=== PATIENT | female | born 1965 | race Caucasian/White ===

== ENCOUNTER 2018-05-17 18:44 | Emergency (ER) | payer MEDICAID, SELFPAY ==
[2018-05-17 18:46] VITALS: BP 116/61; PULSE 67; RESP 16; TEMP 36.5; O2SAT 100; BMI 40.5
--- NOTE | 2018-05-17 18:51 | EKG12_ITS ---
Test Reason : SYNCOPE Blood Pressure : / mmHG Vent. Rate : 064 BPM Atrial Rate : 064 BPM P-R Int : 136 ms QRS Dur : 084 ms QT Int : 438 ms P-R-T Axes : 030 002 169 degrees QTc Int : 451 ms Normal sinus rhythm Inferior infarct , age undetermined T wave abnormality, consider lateral ischemia Abnormal ECG Confirmed by EDNA PADILLA, REKHA ([id number]), scientific publications editor SEVEN FLOREZ ([id number]) on 05/21/2018 3:00:21 PM Referred By: ALEXI Confirmed By:REKHA BISHOP MD
--- NOTE | 2018-05-17 18:54 | ED.RN ---
NO OLD EKGS IN MUSE.
[2018-05-17 18:55] VITALS: BP 102/66; BP 108/60; BP 119/75; PULSE 63
[2018-05-17] MEDS: Ondansetron 4 MG/2 ML Vial IV (19:03)
[2018-05-17] MEDS: 0.9% Normal Saline 1,000 ML 1000 ML IV (19:03)
--- NOTE | 2018-05-17 19:04 | ED.VISSUMM ---
- ER Visit Summary Date of Service: 05/17/18 Chief Complaint: Near syncope History of Present Illness: The patient is a 53 F presents to the emergency department with a near syncopal episode. The patient states she woke in her normal state of health. She states that she ate prior to going to work. She states about 30 minutes later, she began to have some diarrhea. She states she took Imodium and went to work. She had approximately 15 bowel movements throughout the day but they have seemed to have slowed down. She states she went back to sit at her desk and became lightheaded as if she was going to pass out. The patient states she has had syncope before so she laid down. Coworker called squad. On squad arrival, she was nauseated, and had one episode of vomiting. She states since vomiting, her symptoms have markedly improved. She denies any lightheadedness since. She had no chest pain. She denies any dyspnea. She has no history of diverticulitis. She takes no anticoagulants.] Physical Examination: Vital signs reviewed General: Well-nourished, well-developed Head: Normocephalic, atraumatic Eyes: Pupils equal and reactive, extraocular muscles intact Neck, supple, no lymphadenopathy Heart: Regular rate and rhythm Respiratory: No distress, clear bilaterally Abdomen: Soft, nontender, nondistended, no peritoneal signs Back: Nontender Extremities: Nontender, no edema, no cords Skin: Normal color no rash Neuro: Alert and oriented, no focal or lateralizing deficits Test Results: [] Emergency Department Course and Treatment: The patient presents after near syncopal episode with diarrhea. IV was established. EKG shows some lateral T wave changes, but they were unchanged from prior. Patient was given fluids. Orthostatics were obtained were unremarkable. Her screening labs relatively unremarkable. Her bicarb is lower, but given her diarrhea, I do feel that this is within the normal range. Reevaluation, she is feeling improved. I do feel that this is vasovagal in nature. I do feel the patient is safe for discharge. She has no abdominal pain. She has no fever. She will be treated with antiemetics and antispasmodics. She will be discharged home. Treatment Plan: [] Disposition: Discharge Impression: 1. Vasovagal near syncope 2. Diarrhea This note was generated with [employer] software. It may contain incorrect words, spelling, and punctuation that were not noted in review of the chart prior to signing ED Disposition - Plan for ED Patient: Chief Complaint: Syncope Instructions: ED Near Syncope Vasovagal Prescriptions: Ondansetron [Zofran Odt] 4 mg PO Q8H PRN PRN #10 tab PRN Reason: Nausea Dicyclomine HCl [Bentyl] 20 mg PO TIDAC #20 cap Referrals: Roc Duque MD [Primary Care Provider] -
[2018-05-17 19:28] LABS: Absolute Lymphocyte Count 1.95 X10^3/ul (0.83-4.51); Absolute Neutrophil Count 8.5 X10^3/uL (2.0-7.7); Basophil# 0.03 X10^3/uL; Basophil% 0.3 % (0-1); Eosinophil# 0.14 X10^3/uL; Eosinophils% 1.3 % (0-5); Hematocrit 40.3 % (37-47); Hemoglobin 12.9 g/dl (12.0-15.0); Lymphocyte # 1.95 X10^3/ul (4.0); Lymphocyte % 17.7 % (19-41); Mean Corpuscular Hgb 23.8 pg (27.0-32.0); Mean Corpuscular Volume 74.2 fL (81-99); Mean Platelet Vol. 10.1 fl (6.2-12.0); Monocyte# 0.42 X10^3/uL; Monocyte% 3.8 % (0-10); Neutrophil # 8.49 X10^3/uL (2.7-7.7); Neutrophil % 76.8 % (47-70); Platelet Count 248 K/mm3 (150-450); RBC Distribution Width CV 17.1 % (11.6-14.6); Red Blood Count 5.43 M/mm3 (4.2-5.4)
[2018-05-17 19:30] LABS: POSITIVE COUNT NO; POSITIVE DIFFERENTIAL NO; POSITIVE MORPHOLOGY NO
[2018-05-17 19:43] LABS: ALB/GLOB Ratio 0.8 RATIO (0.9-2.4); AST(SGOT) 20 U/L (15-37); Alanine Aminotransfer ALT/SGPT 25 U/L (13-56); Albumin, Serum 3.4 g/dL (3.2-5.0); Alkaline Phosphatase 134 U/L (45-117); Anion Gap 8 (5-15); BUN 17 mg/dL (7-18); BUN/Creat Ratio 11.4 RATIO (10-20); Chloride 108 mmol/L (98-107); Creatinine, Serum 1.49 mg/dL (0.55-1.02); EST Glomerular Filtration Rate 39 mL/min (>60); Est Glom Filt Rate - Afr Amer 47 mL/min (>60); Estimated Creatinine Clearance 39.29 ml/min; Globulin 4.3 g/dL (2.2-4.2); Glucose 173 mg/dL (74-106); Potassium 3.9 mmol/L (3.5-5.1); Protein, Total 7.7 g/dL (6.4-8.2); Sodium Level 136 mmol/L (136-145)
[2018-05-17] MEDS: Dicyclomine 10 MG Capsule 20 MG PO (20:17)
[2018-05-17 20:18] VITALS: BP 132/59; PULSE 70; RESP 16; O2SAT 100
== END 2018-05-17 20:21 | disposition home or self-care (01) ==
LOC: ED 19:15
PROVIDERS: Emergency Provider Emergency Medicine; Family Provider Family Medicine; PCP Family Medicine
DX: R55 Syncope and collapse (principal); R19.7 Diarrhea, unspecified; R11.2 Nausea with vomiting, unspecified; E11.9 Type 2 diabetes mellitus without complications; I10 Essential (primary) hypertension; Z79.899 Other long term (current) drug therapy; Z90.49 Acquired absence of other specified parts of digestive tract
CPT/HCPCS: 36415; 80053; 85025; 93005; 96361; 96374; 99285; J7030; J2405

== ENCOUNTER 2018-05-20 12:39 | Emergency (ER) | payer MEDICAID, SELFPAY ==
[2018-05-20 12:39] VITALS: BP 152/65; PULSE 61; PULSE 63; RESP 18; TEMP 36.4; O2SAT 100; BMI 45.6
--- NOTE | 2018-05-20 12:50 | CT_ITS ---
STUDY: CT ABDOMEN AND PELVIS WITH CONTRAST REASON FOR EXAM: Female, 53 years old. Diarrhea, abdominal pain RADIATION DOSAGE (If Supplied By Facility): CTDIvol = ( 17.07 ) mGy, DLP = ( 1315.16 ) mGycm TECHNIQUE: Transaxial images were obtained from the dome of the diaphragm to the symphysis pubis without oral contrast. 100cc ml of Isovue 300 contrast was administered. Sagittal and coronal images were reconstructed. Individualized dose optimization techniques were used for this CT. COMPARISON: None. FINDINGS: The visualized lung bases are unremarkable. The visualized portions of the heart are within normal limits. Normal liver. Status post cholecystectomy. Mild prominence of the biliary system. Granulomatous calcifications in the spleen. Normal pancreas. Normal bilateral adrenal glands. Subcentimeter cysts in the right kidney. Normal left kidney. Normal visualized stomach. Normal small intestine. Mild diverticulosis of the colon. The appendix is visualized and appears normal. Normal abdominal aorta. Normal inferior vena cava. Normal retroperitoneum. Normal urinary bladder. 2 cm right adnexal cystic lesion. Normal uterus. Normal abdominal wall. Normal osseous structures. CT/Abdomen/Pelvis W IV Cont ONLY IMPRESSION: Mild colonic diverticulosis. Right adnexal cystic lesion. Right renal cysts. Electronically Signed: Joe Archibald DO at 15:30 EDT Tel [phone], Service support ,
[2018-05-20] MEDS: 0.9% Normal Saline 1,000 ML 1000 ML IV (13:46)
[2018-05-20] MEDS: Ondansetron 4 MG/2 ML Vial IV (13:46)
[2018-05-20] MEDS: Morphine 4 MG/ML Syringe IV (13:47)
[2018-05-20 13:51] LABS: Absolute Lymphocyte Count 1.21 X10^3/ul (0.83-4.51); Eosinophils% 2.3 % (0-5); Hemoglobin 13.2 g/dl (12.0-15.0); Lymphocyte # 1.21 X10^3/ul (4.0); Lymphocyte % 13.9 % (19-41); Mean Corp Hgb Conc 32.2 g/gl (32-36); Mean Corpuscular Volume 74.4 fL (81-99); Monocyte# 0.27 X10^3/uL; Monocyte% 3.1 % (0-10); Neutrophil # 7.02 X10^3/uL (2.7-7.7); Neutrophil % 80.6 % (47-70); POSITIVE COUNT NO; POSITIVE DIFFERENTIAL NO; POSITIVE MORPHOLOGY NO; Platelet Count 225 K/mm3 (150-450); RBC Distribution Width CV 17.3 % (11.6-14.6); RBC Distribution Width SD 46.9 fl (35.1-43.9); Red Blood Count 5.51 M/mm3 (4.2-5.4); White Blood Count 8.7 K/mm3 (4.4-11.0)
[2018-05-20 14:05] LABS: ALB/GLOB Ratio 0.7 RATIO (0.9-2.4); AST(SGOT) 29 U/L (15-37); Alanine Aminotransfer ALT/SGPT 24 U/L (13-56); Albumin, Serum 3.2 g/dL (3.2-5.0); Alkaline Phosphatase 128 U/L (45-117); Anion Gap 9 (5-15); BUN 12 mg/dL (7-18); BUN/Creat Ratio 9.8 RATIO (10-20); Calcium,Total 8.1 mg/dL (8.5-10.1); Chloride 111 mmol/L (98-107); Creatinine, Serum 1.22 mg/dL (0.55-1.02); EST Glomerular Filtration Rate 49 mL/min (>60); Est Glom Filt Rate - Afr Amer 59 mL/min (>60); Estimated Creatinine Clearance 40.24 ml/min; Globulin 4.5 g/dL (2.2-4.2); Glucose 158 mg/dL (74-106); Lipase 137 U/L (73-393); Potassium 4.2 mmol/L (3.5-5.1); Protein, Total 7.7 g/dL (6.4-8.2); Sodium Level 139 mmol/L (136-145)
[2018-05-20 14:54] LABS: Mucous, Urine 0 SEEN /hpf (<or=2+); Red Blood Cells-Urine 0 SEEN /hpf (0-5)
[2018-05-20 14:55] VITALS: BP 144/73; PULSE 67; RESP 16; O2SAT 100
[2018-05-20 14:55] LABS: Color, Urine Yellow (Yellow); Glucose, Dipstick Normal (Normal); Ketone-Dipstick Negative (Negative); Leukocyte Esterase-Dipstick 100 /ul (Negative); Nitrite-Dipstick Negative (Negative); Occult Blood-Urine Negative /ul (Negative); Protein-Dipstick Negative (Negative); Urine Bilirubin Dipstick Negative (Negative); Urine Clarity Clear (Clear); Urine Urobilinogen Normal (Normal)
[2018-05-20 15:04] LABS: Bacteria 1+ /hpf (None Seen); Squamous Epithelial Cells - UA 0-5 SEEN /hpf (5-10); White Blood Cells 5-10 SEEN /hpf (0-5)
--- NOTE | 2018-05-20 15:41 | ED.VISSUMM ---
- ER Visit Summary Date of Service: 05/20/18 Chief Complaint: Abdominal pain History of Present Illness: The patient is a 53 F with abdominal pain and diarrhea. Symptoms started about 3-4 days ago. She has had nonbloody diarrhea. This is associated with nausea and vomiting. She also has some left lower quadrant cramping. She was seen in the emergency department previously because she thought she had food poisoning. Denies fevers. Denies cardiac or respiratory symptoms. Denies any urinary symptoms. Physical Examination: Afebrile and vital signs unremarkable. Patient is alert and oriented. No acute distress. Heart regular rate and rhythm. Lungs clear. Abdomen tender in the left lower quadrant. No guarding or rebound. Skin appears normal in color without pallor or jaundice. Test Results: CBC normal. Chloride 111 and CO2 19. Glucose 158 and creatinine 1.22. Alkaline phosphatase 128. Lipase normal. Urinalysis shows 5-10 white cells and elevated leukocyte esterase. CT abdomen and pelvis shows diverticulosis as well as right adnexal cyst, 2 cm and a right renal cyst. Emergency Department Course and Treatment: Patient received fluids, morphine, and Zofran while awaiting results. She remained stable. Workup was all fairly unremarkable. Patient is appropriate for outpatient follow-up. She was treated with Cipro for the UTI. She may use [id number] remedies for pain and diarrhea. She will follow-up with her primary doctor regarding the incidental cysts. Return for any new or worsening issues. Treatment Plan: As above Disposition: Discharge Impression: 1. Diarrheal illness 2. UTI 3. Right renal cyst 4. Right adnexal cyst 2cm This note was generated with [employer] dictation software. It may contain incorrect words, spelling, and punctuation that were not noted in review of the chart prior to signing ED Disposition - Plan for ED Patient: Chief Complaint: Abd Pain Referrals: Roc Duque MD [Primary Care Provider] -
--- NOTE | 2018-05-20 15:44 | ED.DCSUM_ITS ---
- ER Visit Summary Date of Service: 05/20/18 Chief Complaint: Abdominal pain History of Present Illness: The patient is a 53 F with abdominal pain and diarrhea. Symptoms started about 3-4 days ago. She has had nonbloody diarrhea. This is associated with nausea and vomiting. She also has some left lower quadrant cramping. She was seen in the emergency department previously because she thought she had food poisoning. Denies fevers. Denies cardiac or respiratory symptoms. Denies any urinary symptoms. Physical Examination: Afebrile and vital signs unremarkable. Patient is alert and oriented. No acute distress. Heart regular rate and rhythm. Lungs clear. Abdomen tender in the left lower quadrant. No guarding or rebound. Skin appears normal in color without pallor or jaundice. Test Results: CBC normal. Chloride 111 and CO2 19. Glucose 158 and creatinine 1.22. Alkaline phosphatase 128. Lipase normal. Urinalysis shows 5-10 white cells and elevated leukocyte esterase. CT abdomen and pelvis shows diverticulosis as well as right adnexal cyst, 2 cm and a right renal cyst. Emergency Department Course and Treatment: Patient received fluids, morphine, and Zofran while awaiting results. She remained stable. Workup was all fairly unremarkable. Patient is appropriate for outpatient follow-up. She was treated with Cipro for the UTI. She may use [id number] remedies for pain and diarrhea. She will follow-up with her primary doctor regarding the incidental cysts. Return for any new or worsening issues. Treatment Plan: As above Disposition: Discharge Impression: 1. Diarrheal illness 2. UTI 3. Right renal cyst 4. Right adnexal cyst 2cm This note was generated with [employer] dictation software. It may contain incorrect words, spelling, and punctuation that were not noted in review of the chart prior to signing ED Disposition - Plan for ED Patient: Chief Complaint: Abd Pain Referrals: Roc Duque MD [Primary Care Provider] -
--- NOTE | 2018-05-20 15:44 | ED.DEP ---
ED Disposition - Plan for ED Patient: Chief Complaint: Abd Pain Instructions: ED UTI Cystitis Female Prescriptions: Ciprofloxacin [Cipro] 500 mg PO BID #10 tab Referrals: Roc Duque MD [Primary Care Provider] -
[2018-05-20] MEDS: Ciprofloxacin 500 MG Tablet PO (15:51)
[2018-05-20 15:52] VITALS: BP 131/58; PULSE 66; RESP 16; TEMP 36.6
== END 2018-05-20 15:56 | disposition home or self-care (01) ==
LOC: ED 14:08
PROVIDERS: Emergency Provider Emergency Medicine; Family Provider Family Medicine; PCP Family Medicine; Referring Provider Emergency Medicine
DX: R19.7 Diarrhea, unspecified (principal); N39.0 Urinary tract infection, site not specified; N28.1 Cyst of kidney, acquired; K57.90 Diverticulosis of intestine, part unspecified, without perforation or abscess without bleeding; E11.9 Type 2 diabetes mellitus without complications; I10 Essential (primary) hypertension; F32.9 Major depressive disorder, single episode, unspecified; F41.9 Anxiety disorder, unspecified; Z79.899 Other long term (current) drug therapy
CPT/HCPCS: 74177; 80053; 81001; 83690; 85025; 96361; 96374; 96375; 99285; J7030; Q9967; A4216; J2405

== ENCOUNTER 2019-10-11 13:47 | Emergency (ER) | payer MEDICAID, SELFPAY ==
[2019-10-11 13:49] VITALS: BP 161/87; PULSE 90; RESP 16; TEMP 35.7; O2SAT 98; BMI 46.8
--- NOTE | 2019-10-11 14:40 | CT_ITS ---
STUDY: CT BRAIN WITHOUT CONTRAST REASON FOR EXAM: Female, 54 years old. SMITH X 2.5 WKS RADIATION DOSAGE (If Supplied By Facility): CTDIvol = ( 60.81 ) mGy, DLP = ( 1067.08 ) mGycm TECHNIQUE: Transaxial CT imaging of the brain was performed without administration of intravenous contrast material. Individualized dose optimization techniques were used for this CT. COMPARISON: No relevant priors. FINDINGS: Normal soft tissue structures. Normal calvarium. Normal size ventricles and extra-axial spaces for the patient''s age. Normal white matter tracts of the cerebral hemispheres. Normal basal ganglia and thalami. Normal brainstem. Normal cerebellum. There is no intracranial hemorrhage. There are no findings of an acute ischemic infarction. There is a 1.7 cm x 2 cm mucosal retention cyst or polyp in the inferior aspect of the left maxillary sinus. CT/Brain/Head without Contrast IMPRESSION: Normal unenhanced CT scan of the brain. Mucosal polyp or retention cyst at the base of the left maxillary sinus. Electronically Signed: Michael Lockhart, at 15:28 EST , Service support ,
[2019-10-11] MEDS: Ketorolac 30 MG/ML Syringe IV (14:56)
[2019-10-11] MEDS: Metoclopramide 10 MG/2 ML Vial IV (14:57)
[2019-10-11] MEDS: 0.9% Normal Saline 1,000 ML 999 ML IV (14:57)
[2019-10-11] MEDS: DiphenhydrAMINE 50 MG/ML Syringe 25 MG IV (14:57)
--- NOTE | 2019-10-11 15:56 | ED.VIS.GEN ---
History of Present Illness Chief Complaint: Headache Narrative: Patient presents with week history of a headache it was gradual in onset and got worse and has been almost constant since she also has some spasm in her trapezius and paraspinal neck region. She has no vision changes she has no paresthesias she has no weakness or numbness she has no confusion she has no speech difficulty. She drove herself to the urgent care and was told to come to the emergency department. She has no history of migraines. Past Medical History - Allergies and Home Meds Allergies/Adverse Reactions: Allergies Penicillins Allergy (Verified 10/11/19 13:52) Rash erythromycin base Adverse Reaction (Verified 10/11/19 13:52) Nausea metformin Adverse Reaction (Verified 10/11/19 13:52) Diarrhea Primary Care Physician: Roc Duque MD [Primary Care Provider] - Past Medical History: - - Reviewed and unremarkable Surgical History: - - Abscesses in buttocks with infection I&D and debridement Smoking Status: Never smoker Review of Systems General: Denies: Fever Eyes: Denies: Visual changes - bilaterally Cardiovascular: Denies: Chest pain Respiratory: Denies: Dyspnea Gastrointestinal: Denies: Nausea, Vomiting Musculoskeletal: Reports: Myalgias, Neck pain, - - Trapezius tenderness as well as paraspinal neck pain Skin: Denies: Rash Neurological: Reports: Headache. Denies: Weakness, Parasthesia, Numbness Physical Exam Vital Signs/Narrative: Vital Signs Temp Pulse Resp BP Pulse Ox 10/11/19 13:49 96.2 F L 90 16 161/87 H 98 General: Well nourished, Well developed Head: Normocephalic, Atraumatic Eyes: Perrl, EOMI ENT: Moist mucous membranes, Nasal congestion Neck: - - She has tenderness over the paraspinal muscles of her neck extending into the upper back region and trapezius Cardiovascular: Regular rate, Regular rhythm Respiratory: No distress, CTA bilaterally Abdomen: Soft, Nontender Back: - - PC is tenderness as above otherwise no spinous tenderness Extremities: Nontender Skin: Normal color Neurological: Alert, Oriented x3, Cranial nerves II-XII grossly intact, Normal Strength, Normal Sensation, Normal Gait. Negative for: Confused, Disoriented Diagnostic/Tx/Re-eval - Medical Decision Making We will CT her symptoms significantly improved she may have a tension component therefore I will send her home with muscle relaxants. This is a gradual onset of headache without any neurological symptoms and a normal CT no further testing is needed. ED Disposition - Plan for ED Patient: Disposition: LEFT WITHOUT BEING SEEN Diagnosis: Headache Instructions: HEADACHE, Unspecified, HEADACHE, Tension Prescriptions: Tizanidine HCl 4 mg PO BID PRN #15 tab PRN Reason: pain Prescription Printed Referrals: Roc Duque MD [Primary Care Provider] -
[2019-10-11 16:07] VITALS: PULSE 64; RESP 16
== END 2019-10-11 16:11 | disposition home or self-care (01) ==
PROVIDERS: Emergency Provider Emergency Medicine; PCP Family Medicine
DX: R51 Headache (principal); M62.838 Other muscle spasm; Z79.899 Other long term (current) drug therapy; Z88.0 Allergy status to penicillin; Z88.1 Allergy status to other antibiotic agents
CPT/HCPCS: 70450; 96361; 96374; 96375; 99283; J7030; A4216

== ENCOUNTER 2022-10-21 17:28 | Emergency (ER) | payer OTHER, MEDICAID, SELFPAY ==
[2022-10-21 17:28] VITALS: BP 121/76; PULSE 96; RESP 18; TEMP 35.6; O2SAT 98; BMI 49.1
--- NOTE | 2022-10-21 19:34 | EX.ED.DYSGE1 ---
HPI <WANG Silver - Last Filed: 10/21/22 21:20> History of Present Illness Chief Complaint: Weakness Narrative Narrative: Patient presenting today with nausea and diarrhea that she has had since Monday. She states that on Monday she thought that she came down with the stomach flu as she had several episodes of nausea, vomiting, and diarrhea. This persisted throughout the week but she only had a few episodes of vomiting throughout the week with several episodes of diarrhea. She states that today she thinks she has had 15-18 episodes of diarrhea and two episodes of vomiting. She states she feels dehydrated and weak because she has not been eating a whole lot. She denies any abdominal pain, blood in the stool, fever, chills, recent antibiotics, history of C. difficile, and urinary symptoms. PMH includes diabetes mellitus, hypertension, and depression. PFSH <WANG Silver - Last Filed: 10/21/22 21:20> PFSH Home Medications hydrocodone 10 mg-acetaminophen 300 mg tablet (Vicodin HP) 1 tab PO Q4H PRN PRN Pain 07/17/15 [History Last Taken Unknown] lisinopril 10 mg tablet 10 mg PO DAILY 07/17/15 [History Last Taken Unknown] paroxetine HCl 30 mg tablet (Paxil) 30 mg PO DAILY 07/17/15 [History Last Taken Unknown] ondansetron 4 mg disintegrating tablet 4 mg PO Q8H PRN PRN Nausea #10 tabs 05/17/18 [Rx Last Taken Unknown] ciprofloxacin HCl 500 mg tablet 500 mg PO BID #10 tabs 05/20/18 [Rx Last Taken Unknown] tizanidine 4 mg tablet 4 mg PO BID PRN pain #15 tabs 10/11/19 [Rx Last Taken Unknown] ondansetron HCl 4 mg tablet 4 mg PO BID 6 days #12 tabs 10/21/22 [Rx Last Taken Unknown] promethazine 25 mg tablet 25 mg PO Q8H PRN PRN nausea and vomiting #14 tabs 10/21/22 [Rx Last Taken Unknown] Allergy/AdvReac Type Severity Reaction Status Date / Time Penicillins Allergy Rash Verified 10/21/22 17:30 erythromycin base AdvReac Nausea Verified 10/21/22 17:30 metformin AdvReac Diarrhea Verified 10/21/22 17:30 Social History Smoking Status: Never smoker ROS <WANG Silver - Last Filed: 10/21/22 21:20> ROS ED Constitutional Constitutional ED: Denies chills, fever(s) or sweats Eyes Eyes: Denies blurry vision or diplopia Cardiovascular Cardiovascular: Denies chest pain or palpitations Respiratory/Chest Respiratory/Chest: Denies cough, dyspnea, tachypnea or wheezing Gastrointestinal Gastrointestinal: Reports diarrhea, nausea and vomiting; Denies abdominal pain or constipation Genitourinary Genitourinary ED: Denies dysuria, hematuria or urinary urgency Musculoskeletal Musculoskeletal: Denies arthralgias, back pain, myalgias or neck pain Integumentary Denies abscess, Abrasions or rash Neurologic Neurologic: Denies confusion, dizziness or paresthesias Psychiatric Psychiatric: Denies anxiety, depression, suicidal ideation or suicidal thoughts EXAM <WANG Silver - Last Filed: 10/21/22 21:20> Physical Exam Const Vital Signs: 10/21/22 17:28 10/21/22 19:43 10/21/22 19:43 Temperature 96.1 F L Temperature Source Temporal Pulse Rate 96 68 Respiratory Rate 18 15 Respiratory Effort Normal Non-Labored Blood Pressure 121/76 H 120/60 Blood Pressure Mean 91 80 Pulse Ox 98 95 Oxygen Delivery Method Room Air Room Air 10/21/22 21:35 10/21/22 22:29 Temperature Temperature Source Pulse Rate 64 64 Respiratory Rate 15 15 Respiratory Effort Blood Pressure 130/77 H 130/77 H Blood Pressure Mean 94 Pulse Ox 98 98 Oxygen Delivery Method Room Air Positive well nourished, well developed and no apparent distress General Appearance ED: well developed HEENT Reports normocephalic and head/scalp atraumatic Mouth ED: Yes moist mucous membranes normal Eyes PERRL and EOMs intact bilaterally Neck full ROM and supple Chest Wall inspection of chest normal Resp normal respiratory effort and clear to auscultation bilaterally Cardio regular rate and regular rhythm GI soft to palpation, non-tender, non-distended and no masses Back/Spine normal ROM and normal to inspection Extremity normal to inspection and full ROM Neuro oriented x3, CN's II-XII intact bilaterally, moves all extremities, no focal motor deficits and no sensory deficits noted Sensorium / Orientation: awake and alert Psych mental status grossly normal and thought process normal Skin no rashes or lesions noted and no wounds <Dr. Chato Hancock DO - Last Filed: 10/21/22 23:17> Physical Exam Const Vital Signs: 10/21/22 17:28 10/21/22 19:43 10/21/22 19:43 Temperature 96.1 F L Temperature Source Temporal Pulse Rate 96 68 Respiratory Rate 18 15 Respiratory Effort Normal Non-Labored Blood Pressure 121/76 H 120/60 Blood Pressure Mean 91 80 Pulse Ox 98 95 Oxygen Delivery Method Room Air Room Air 10/21/22 21:35 10/21/22 22:29 Temperature Temperature Source Pulse Rate 64 64 Respiratory Rate 15 15 Respiratory Effort Blood Pressure 130/77 H 130/77 H Blood Pressure Mean 94 Pulse Ox 98 98 Oxygen Delivery Method Room Air MDM <WANG Silver - Last Filed: 10/21/22 21:20> MDM MDM Narrative Medical decision making narrative: Patient presenting today due to nausea and vomiting, and diarrhea she has had since Monday. She is well-appearing and in no acute distress. She has no abdominal tenderness and I do not feel an abdominal CT is necessary. She has had the vomiting intermittently throughout the week but has had several episodes of diarrhea each day. She will be given IV fluids and Zofran. Would like to obtain a stool sample to test patient for C. difficile but she is unable to give us a sample here. I have low suspicion that it is C. difficile as patient does not have any leukocytosis, recent antibiotic use, or history of c diff. This is likely viral. She has been given IV fluids, Zofran. On reexamination she states she still feeling slightly nauseous and has a little bit of abdominal cramping. She has been given Bentyl and Phenergan and additional fluids. CMP did show evidence of dehydration. On examination she is stating she is feeling better. She will be sent home with a prescription for Imodium, Bentyl, and Zofran. She will be discharged home in stable condition and is comfortable with plan. Lab Data Attestation: I reviewed the patient's lab results. Lab results narrative: CBC does not show leukocytosis or anemia. CMP shows a BUN of 27, creatinine 1.74, GFR 32, glucose 203 Labs: Laboratory Results - last 24 hr 10/21/22 10/21/22 19:35 19:35 WBC 7.7 RBC 5.66 H Hgb 14.7 Hct 46.2 MCV 81.6 MCH 26.0 L MCHC 31.8 L RDW Std Deviation 47.0 H RDW Coeff of Kelby 16.0 H Plt Count 255 MPV 10.6 Immature Gran % (Auto) 0.400 Neut % (Auto) 72.0 H Lymph % (Auto) 14.6 L Aiken % (Auto) 6.6 Eos % (Auto) 6.1 H Baso % (Auto) 0.3 Absolute Neuts (auto) 5.5 Absolute Lymphs (auto) 1.12 Nucleated RBC % 0 Sodium 139 Potassium 4.6 Chloride 111 H Carbon Dioxide 21.0 Anion Gap 7 BUN 27 H Creatinine 1.74 H Estim Creat Clear Calc 26.92 Est GFR (MDRD) Af Amer 39 L Est GFR (MDRD) Non-Af 32 L BUN/Creatinine Ratio 15.5 Glucose 203 H Calcium 8.9 Total Bilirubin 0.50 AST 15 ALT 23 Alkaline Phosphatase 101 Total Protein 7.4 Albumin 3.6 Globulin 3.8 Albumin/Globulin Ratio 0.9 <Dr. Chato Hancock, DO - Last Filed: 10/21/22 23:17> [facility] MDM Narrative Medical decision making narrative: Patient presenting today due to nausea and vomiting, and diarrhea she has had since Monday. She is well-appearing and in no acute distress. She has no abdominal tenderness and I do not feel an abdominal CT is necessary. She has had the vomiting intermittently throughout the week but has had several episodes of diarrhea each day. She will be given IV fluids and Zofran. Would like to obtain a stool sample to test patient for C. difficile but she is unable to give us a sample here. I have low suspicion that it is C. difficile as patient does not have any leukocytosis, recent antibiotic use, or history of c diff. This is likely viral. She has been given IV fluids, Zofran. On reexamination she states she still feeling slightly nauseous and has a little bit of abdominal cramping. additional fluids. CMP did show evidence of dehydration. On examination she is stating she is feeling better. She will be discharged home in stable condition and is comfortable with plan. This patient was seen with a PA/MARKETING FINANCE SPECIALIST Individually assessed they patient including history and physical. I have reviewed everything on the chart that is available and agree with the documentation provided by the PA/MARKETING FINANCE SPECIALIST including discussion about the assessment, treatment plan, discussion, and return precautions. Patient presenting with several days of diarrhea. She does have decreased p.o. intake as well. No significant abdominal pain but complains of cramping. Initially given IV fluids, Zofran. Still having nausea after Zofran so she was given Phenergan. CBC is unremarkable. BMP shows a creatinine is elevated at 1.74. Patient given a total of 1500 cc of normal saline in the ER. She is feeling very much improved. She was given antiemetics for home. Lab Data Labs: Laboratory Results - last 24 hr 10/21/22 10/21/22 19:35 19:35 WBC 7.7 RBC 5.66 H Hgb 14.7 Hct 46.2 MCV 81.6 MCH 26.0 L MCHC 31.8 L RDW Std Deviation 47.0 H RDW Coeff of Kelby 16.0 H Plt Count 255 MPV 10.6 Immature Gran % (Auto) 0.400 Neut % (Auto) 72.0 H Lymph % (Auto) 14.6 L Aiken % (Auto) 6.6 Eos % (Auto) 6.1 H Baso % (Auto) 0.3 Absolute Neuts (auto) 5.5 Absolute Lymphs (auto) 1.12 Nucleated RBC % 0 Sodium 139 Potassium 4.6 Chloride 111 H Carbon Dioxide 21.0 Anion Gap 7 BUN 27 H Creatinine 1.74 H Estim Creat Clear Calc 26.92 Est GFR (MDRD) Af Amer 39 L Est GFR (MDRD) Non-Af 32 L BUN/Creatinine Ratio 15.5 Glucose 203 H Calcium 8.9 Total Bilirubin 0.50 AST 15 ALT 23 Alkaline Phosphatase 101 Total Protein 7.4 Albumin 3.6 Globulin 3.8 Albumin/Globulin Ratio 0.9 Discharge Plan Triage Chief Complaint: Weakness ED Midlevel Provider: Violeta Dorman ED Provider: Chato Hancock Dx/Rx/DC Orders Clinical Impression: Diarrhea, Nausea & vomiting, Dehydration Instructions: ED Vomiting and Diarrhea ... Prescriptions: New ondansetron HCl 4 mg tablet 4 mg PO BID 6 Days Qty: 12 0RF promethazine 25 mg tablet 25 mg PO Q8H PRN PRN (Reason: nausea and vomiting) Qty: 14 0RF Discontinued dicyclomine 10 MG capsule 20 mg PO TIDAC Qty: 20 0RF No Action lisinopril 10 MG tablet 10 mg PO DAILY paroxetine HCl [Paxil] 30 MG tablet 30 mg PO DAILY hydrocodone-acetaminophen [Vicodin HP] 1 EACH tablet 1 tab PO Q4H PRN PRN (Reason: Pain) ondansetron 4 MG tablet 4 mg PO Q8H PRN PRN (Reason: Nausea) Qty: 10 0RF ciprofloxacin HCl 500 MG tablet 500 mg PO BID Qty: 10 0RF tizanidine 4 MG tablet 4 mg PO BID PRN (Reason: pain) Qty: 15 0RF Primary Care Provider: Roc Duque Referrals: Roc Duque MD [Primary Care Provider] - 3-5 Days Activity Restrictions/Additional Instructions: Try to stay well-hydrated. Please follow-up with your PCP. Return for any worsening of symptoms. Disposition Disposition: Home, Self Care Discharge Date/Time: 10/21/22 23:11
[2022-10-21] MEDS: Ondansetron 4 MG/2 ML Vial IV (19:40)
[2022-10-21] MEDS: 0.9% Normal Saline 1,000 ML 999 ML IV (19:41)
[2022-10-21 19:43] VITALS: BP 120/60; PULSE 68; RESP 15; O2SAT 95
[2022-10-21 19:48] LABS: Absolute Lymphocyte Count 1.12 X10^3/uL (0.83-4.51); Absolute Neutrophil Count 5.5 X10^3/uL (2.0-7.7); Basophil# 0.02 X10^3/uL; Basophil% 0.3 % (0-1); Eosinophil# 0.47 X10^3/uL; Eosinophils% 6.1 % (0-5); Hematocrit 46.2 % (37-47); Hemoglobin 14.7 g/dL (12.0-15.0); Lymphocyte # 1.12 X10^3/ul (0.83-4.51); Lymphocyte % 14.6 % (19-41); Mean Corp Hgb Conc 31.8 g/dL (32-36); Mean Corpuscular Volume 81.6 fL (81-99); Mean Platelet Vol. 10.6 fl (6.2-12.0); Monocyte# 0.51 X10^3/uL; Monocyte% 6.6 % (0-10); NRBC Flagged by Analyzer 0 % (0-5); Neutrophil # 5.54 X10^3/uL (2.7-7.7); Platelet Count 255 K/mm3 (150-450); Red Blood Count 5.66 M/mm3 (4.2-5.4); White Blood Count 7.7 K/mm3 (4.4-11.0)
[2022-10-21 20:54] LABS: ALB/GLOB Ratio 0.9 RATIO (0.9-2.4); AST(SGOT) 15 U/L (15-37); Alanine Aminotransfer ALT/SGPT 23 U/L (13-56); Albumin, Serum 3.6 g/dL (3.2-5.0); Alkaline Phosphatase 101 U/L (45-117); Anion Gap 7 (5-15); BUN 27 mg/dL (7-18); BUN/Creat Ratio 15.5 RATIO (10-20); Calcium,Total 8.9 mg/dL (8.5-10.1); Chloride 111 mmol/L (98-107); Creatinine, Serum 1.74 mg/dL (0.55-1.02); EST Glomerular Filtration Rate 32 mL/min (>60); Est Glom Filt Rate - Afr Amer 39 mL/min (>60); Estimated Creatinine Clearance 26.92 ml/min; Globulin 3.8 g/dL (2.2-4.2); Glucose 203 mg/dL (74-106); Potassium 4.6 mmol/L (3.5-5.1); Protein, Total 7.4 g/dL (6.4-8.2); Sodium Level 139 mmol/L (136-145)
[2022-10-21] MEDS: proMETHazine 25 MG Tablet PO (21:26)
[2022-10-21] MEDS: Dicyclomine 20 MG/2 ML Vial IM (21:26)
[2022-10-21 21:35] VITALS: BP 130/77; PULSE 64; RESP 15; O2SAT 98
[2022-10-21 22:29] VITALS: BP 130/77; PULSE 64; RESP 15; O2SAT 98
== END 2022-10-21 23:11 | disposition home or self-care (01) ==
PROVIDERS: Physician Assistant; Emergency Provider Student in an Organized Health Care Education/Training Program; PCP Family Medicine; Visit Provider Student in an Organized Health Care Education/Training Program
DX: R19.7 Diarrhea, unspecified (principal); E11.9 Type 2 diabetes mellitus without complications; E86.0 Dehydration; I10 Essential (primary) hypertension; R11.2 Nausea with vomiting, unspecified
CPT/HCPCS: 80053; 85025; 96361; 96372; 96374; 99282; J7030; J2405

== ENCOUNTER 2023-11-21 09:27 | Outpatient (RCR) | payer MEDICAID, SELFPAY ==
--- NOTE | 2023-11-21 10:15 | BH.SGPN.GN ---
Behaviors/Verbalizations/Mental Status: [] Eye contact is fair. Motor activity is appropriate. Appearance is casual. Speech is Appropriate. Mood is depressed and anxious. Affect is congruent. Thoughts are linear and logical. No evidence of psychosis. Client Response/Progress/Benefit: []Pt engaged participant AEB listening to others, engaging in activity, and providing feedback at times. Attentive during psychoeducation and provided insight into obstacles that impede mental wellness. Pt shared with group current mental health reality and desired mental health reality. Stated she would like to get to a place where she feels able to manage life stressors and is connected to others. Identified barriers to desired reality include: disorganization, isolation, low motivation, unrealistic expectations, and overthinking. Benefited from taking look at current mental health state and obstacles for progress. Pt to continue IOP tx to improve daily functioning, increase healthy coping skills, and prevent decompensation.
--- NOTE | 2023-11-21 11:15 | BH.SGPN.GN ---
Behaviors/Verbalizations/Mental Status: []Pt alert and oriented, casually dressed and groomed. Eye contact good. Motor activity appropriate. Speech within normal limits. Affect congruent, mood depressed and anxious. Thoughts linear, logical, no signs of hallucinations or delusions. Client Response/Progress/Benefit: []Pt 1st day in IOP tx, she participated in group discussion and activity. Worked with group to identify strategies to help overcome barriers and obstacles to desired reality. Group developed strategies for the common barriers of avoidance, poor boundaries, unrealistic expectations, low self-confidence, and isolation. Identified personal barriers to desired reality and choose one obstacle to work on this week which was isolation. Pt plans to do this by scheduling concrete plans with a friend to reduce the likelihood of cancelling. Pt seemed to benefit from group by identifying obstacles and solutions to desired reality. Will continue IOP tx to prevent decompensation, improve self-confidence and coping repertoire, and improve daily functioning. ? Narrative Note: []
--- NOTE | 2023-11-21 15:12 | BH.COMM ---
Communication Note Communication with Client Communication Note: Met with pt and completed initial paperwork and administered the CSSR-S assessment and screening tool. Per the CSSR-S screening and assessment, pt is low risk. Pt has no history of suicide attempts and denies any active SI, plan, or intent ever in her life. Pt does admit to having passive suicidal ideations, but she reports these thoughts last minutes and they are easy to control. Numerous protective factors including friends and family. Discussed case with IOP team and Dr. Rooney and pt will be admitted with the diagnosis of MDD, recurrent severe without psychosis F33.2
--- NOTE | 2023-11-21 15:18 | BH.MTP_ITS ---
Master Treatment Plan Patient Information Program Physician:: Dr. Aline Rooney Primary Therapist:: Jada FLORES Psychiatric Diagnoses Psychiatric Diagnoses:: Major depressive disorder, recurrent, severe without psychosis F 33.2; Panic disorder; Generalized anxiety disorder Diagnosis Code(s):: F 33.2 Estimated LOS Estimated LOS (in weeks):: 6 Problem/Goal #1 Problem/Goal #1 Stated Goal:: Pt will increase mood stability by reducing hopelessness, worthlessness, negative thinking patterns, isolation, and suicidal ideations. Description of Barriers: Pt has numerous health issues that impact her mental health and functioning. Pt also has numerous negative beliefs of self, recently lost her job, and she struggles with isolation. Functional Impact: Pt is a 58-year-old female with a history of MDD,CHERYL, and Panic Disorder who was referred to [facility] tx by her outpatient therapist due to worsening depression and anxiety since June 2023. Pt currently endorses a depressed mood with crying spells, isolation, hopelessness, worthlessness, passive SI, and negative thinking patterns. Pt's mental health symptoms led to pt getting let go from her job and have been impacting her ability to complete ADLs. Pt also endorses severe anxiety with panic attacks and avoidance. Goal Relevant Strengths/Supports: Pt has been in group therapy in the past and found it helpful. Pt is connected with outpatient counseling and psychiatry. Objectives Objective #1: Stated Objective: Pt will learn and utilize 2-3 healthy coping strategies to better manage depressive symptoms and reduce suicidal ideations as shown by a decrease of DMS-5 symptoms for depression and SI. Interventions: Through group and individual sessions, therapist will help pt identify triggers and warning signs of depression and guilt including emotional, physical, and behavioral changes. Therapist will teach pt various coping skills to manage symptoms and give pt tangible resources to use to regulate emotions. Therapist will use cognitive restructuring techniques and help pt gain awareness of negative thoughts that reinforce guilt and depression. Therapist will provide psychoeducation on maintenance cycles and help pt learn ways to break unhealthy maintenance cycles. Therapist will help pt incorporate behavioral activation and assist pt in setting SMART goals. Discharge Criteria: Pt will have met this goal when can report learning and using at least 2 coping skills to manage depressive symptoms and reduce isolation. Additionally, pt will have met this goal when pt's DSM-5 scores for depression decrease. Target Date: 01/02/24 Review Date: 12/12/23 Status: open Objective #2: Stated Objective: Pt will increase motivation, reduce negative thinking patterns, and increase structure by accomplishing 2-3 small self-care goals a week. Interventions: Through group and individual sessions, pt will learn how to set small SMART goals to promote self-care and stress management. Therapist will provide education on stress and teach pt effective stress management strategies Discharge Criteria: Pt will have accomplished this goal when can report accomplishing at least two small goals a week. Target Date: 01/02/24 Review Date: 12/12/23 Status: open Problem/Goal #2 Problem/Goal #2 Stated Goal:: Will reduce anxiety and panic while increasing ability to function on daily basis. Description of Barriers: Pt has numerous health issues that impact her mental health and functioning. Pt also has numerous negative beliefs of self, recently lost her job, and she struggles with isolation. Functional Impact: Pt is a 58-year-old female with a history of MDD,CHERYL, and Panic Disorder who was referred to [facility] tx by her outpatient therapist due to worsening depression and anxiety since June 2023. Pt currently endorses a depressed mood with crying spells, isolation, hopelessness, worthlessness, passive SI, and negative thinking patterns. Pt's mental health symptoms led to pt getting let go from her job and have been impacting her ability to complete ADLs. Pt also endorses severe anxiety with panic attacks and avoidance. Goal Relevant Strengths/Supports: Pt has been in group therapy in the past and found it helpful. Pt is connected with outpatient counseling and psychiatry. Objectives Objective #1: Stated Objective: pt will learn and implement 2-3 calming skills to reduce overall anxiety and manage anxiety symptoms. Interventions: Therapist and group sessions will help client identify physiological warning signs of anxiety, increase awareness of thoughts that increase anxiety, and identify behaviors that reinforce anxious symptoms. Group and individual counseling will teach client calming skills to help manage anxious symptoms. Discharge Criteria: Pt will have achieved this goal when can verbalize at least 2 calming skills and reports skills successfully help reduce anxious symptoms. Target Date: 01/02/24 Review Date: 12/12/23 Status: open Objective #2: Stated Objective: Pt will increase ability to manage stressors and anxiety by gaining 2-3 emotional regulation skills. Interventions: Through group and individual therapy, pt will learn various coping skills to help manage stress and anxiety. Therapist will utilize DBT emotional regulation skills to increase awareness and give pt tools to more effectively manage anxiety. Therapist will provide psychoeducation on emotional regulation and help pt identify unhealthy coping skills she wants to change. Discharge Criteria: Pt will have accomplished this goal when can report improved ability to manage stressors and identify at least 2 emotional regulation skills. Target Date: 01/02/24 Review Date: 12/12/23 Status: open
--- NOTE | 2023-11-21 15:19 | BH.PSA ---
Source of Information Presenting Problems/Circumstances Problems, Referral Source, Mental Status, Client: Pt is a 58-year-old female with a history of MDD,CHERYL, and Panic Disorder who was referred to [facility] tx by her outpatient therapist due to worsening depression and anxiety since June 2023. Pt currently endorses a depressed mood with crying spells, isolation, hopelessness, worthlessness, passive SI, and negative thinking patterns. Pt's mental health symptoms led to pt getting let go from her job and have been impacting her ability to complete ADLs. Pt also endorses severe anxiety with panic attacks and avoidance. Psychiatric Presentation Psych Issues & Need for Admission Psychiatric Issues:: 1. Major depressive disorder, recurrent, severe without psychosis 2. Panic disorder 3. Generalized anxiety disorder 4. Work and primary support issues Past Psychiatric History MH Treatment Hx Treatment History: No psych admits. No suicide attempts ever. Patient has psychiatrist, Dr. Chong and a counselor named Dat at [facility]. She was first depressed at age 10 and took her for psychiatric medications at age 22. She first had counseling at age 22 which was helpful and she did PHP 7 years ago which was helpful. She first cut herself at age 30 and has done it off and on since but never required stitches. She was past medications include Paxil, Zoloft, Lexapro, Prozac which did not help and Wellbutrin which she did not take long. First hospitalization:: n/a Most recent hospitalization:: n/a Medication Trials:: Yes ECT Therapy:: No Age of first mental health symptoms: See tx history Describe (age, circumstance, etc) any past hospitalizations: No hospitalizations Current providers for mental health treatment (counselor, psychiatrist, caser shoe parts, etc.): Pt sees Dr. Reyna at [facility] for medication management and Dat at [facility] for individual counseling. Development & Family of Origin Childhood Significant Childhood Events: Pt describes her childhood as good but shared her parents did pressure her a lot of to have good grades and if she did not get good grades she had to stay in her room. Family Who currently lives in your home?: Pt lives with her brother. Describe family composition:: Both of pt's parents are . Pt has one brother three years younger and they are close and live together. Pt has been in relationships in the past and her most serious was a relationship that lasted 12 years. Pt is not currently in a relationship. Pt does not have any children. Family History Family Hx of Psychiatric or AOD Problems: Mother and father had a history of depression. Paternal grandfather by suicide Ethnicity Culture Do you identify yourself with any particular cultural, ethnic background, or community?: No Sexuality Sexual Orientation: Homosexual Spirituality Mu-Ism Do you currently identify with any organized spiritism?: Jainism Beliefs Is there a particular form of support from this community you can use for your recovery?: Yes Mental Status Memory Recent Memory: Good Remote Memory: Good Concentration Concentration: Good Eye Contact Eye Contact: Good Speech Speech: Articulate Thought Process Thought Process: Logical and Ruminations Insight: Good Judgment: Good Behavior: Anxious Orientation Orientation: Time, Person, Place and Situation Appearance Appearance: Disheveled Mood Mood: Anxious, Depressed and Dysphoric/tearful Affect Affect: Constricted Suicide Assessment Suicidal Ideation Have you ever felt like hurting yourself?: Yes Please explain:: Pt has passive thought of but denies any suicidal ideations. Were you using ETOH/drugs at the time?: No Suicidal Intentional Rating Scale (SIRS): No suicidal thoughts (past or present) Physician Notification Violent Behavior/Abuse History Homicidal Ideation Do you have any homicidal thoughts? If so, explain:: No Abuse Have you ever been abused?: No Please explain:: Pt does not report any abuse. Pt did shared I spent a lot of time alone in my room when pt was in school. This happened when pt did not get straight As. Life Events Are there any other significant life events?: Financial loss and Hardships Describe significant life events: Pt's mental health symptoms have contributed to her getting fired from her job in October 2023 after her FMLA ran out Safety Do you ever feel threatened in your home? If yes, describe:: No Adult Social History Age 18 to Present Describe your current support system:: For primary support she has her friends and her brother. Substance Use Substance Substance Use Type: None Education & Occupational Histo Education What is your level of education?: Master Degree (She graduated high school and then graduated college with a BSN education. 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 Service Service Have you ever been in the ?: No Legal History Records Have you had any past legal charges?: No Do you have any current legal charges?: No Have you ever been incarcerated? If yes, describe:: No Court Orders Have you had any past court orders for psychiatric treatment?: No Do you have a present court order for psychiatric treatment?: No Problem Checklist Current Problem Areas Problem List: Nutritional/Eating pattern changes, Depressed mood/sad, Bereavement, Anxiety, Inattention, Sleep problems, Pertinent health issues (Diabetes mellitus type 2 with a hemoglobin A1c of 7; obesity; hypertension; GERD. ) and Additional psychosocial stressors Discharge Planning Needs Anticipated Follow-Up Mental Health Center (Name/Phone Number):: [facility]. [facility] Assessment Client's Needs What are the client's strengths?: Pt has been in group therapy in the past and found it helpful. Pt is connected with outpatient counseling and psychiatry. Diagnoses Diagnoses Diagnosis #1:: MDD, recurrent, severe, without psychosis F 33.2 Diagnosis #2:: Panic Disorder Diagnosis #3:: CHERYL Interpretive Summary Interpretive Summary Interpretive Summary: Pt is a 58-year-old single, female with a long history of depression, anxiety and panic disorder who was referred to [facility] by her outpatient therapist for worsening symptoms of depression and anxiety which have caused her to be unable to function well and accomplish her activities of daily living. Pt's mental health symptoms have contributed to her getting fired from her job in October 2023 after her FMLA ran out. She had worked under a casie and addiction program for 18 months but had been off work since July 2023 due to mental health symptoms. She attempted to return to work in September 2023 but was unable to function well enough. For primary support she has her friends and her brother who she lives with. She has no current romantic partner. Pt's symptoms worsen since May 2023 with no known trigger. She has called crisis a few times when feeling overwhelmed. Pt is a worrier by nature and has two panic attacks a week and has some nausea from anxiety at times. She has a history of self-harm but the last time was cutting 18 months ago. She endorses sadness, crying episodes, no motivation, isolation, hopelessness, worthlessness, guilt, anhedonia, biological disruption of appetite, wanting to sleep too much. She is sleeping 10 hours a night and she was really having trouble even getting out of bed up to 1 week ago. She endorses low energy, decreased concentration, guilt, passive thoughts of . She denies suicidal ideation, plan for suicide, homicidal ideation, hallucinations, delusions, symptoms of jimbo ever, OCD, eating disorder, trauma, PTSD, seizure or head trauma all negative. No substance use or family history of substance use. Family history of anxiety and depression. Treatment Plan Recommendations Recommendations Guidelines Recommendations:: Pt will start IOP as the structure, support, education and group therapy will hopefully prevent worsening of pt?s symptoms which could require hospitalization. She felt safe during the interview and if it anytime she does not feel safe she will let us know or go to the emergency room. The risk, options, possible complications and side effects of the medications were discussed between pt and Dr. Rooney and she understands accepts these. She will continue to follow-up with her outpatient providers.
--- NOTE | 2023-11-21 15:19 | BH.MDN ---
Multi-Disciplinary Note Note 30-min Individual: Time Started:: 09:00 Date: 11/21/23 Purpose of session/treatment goals addressed:: To build rapport, provide support, and gather information on psychosocial stressors, history, and goals. Eye Contact:: Good Motor Activity:: Appropriate Appearance:: Neat Speech:: Appropriate Mood:: Anxious and Other (hopeful) Affect:: Congruent Thoughts:: Linear, Logical and No evidence of hallucinations/delusions noted Staff Interventions:: CBT techniques, rapport building, strengths perspective, treatment planning and completed risk assessment / safety planning Client Response:: Pt responded well to session, open to meeting with therapist. Pt reports she has found benefit from therapy in the past and she looks forward to completing IOP. Pt has struggled with mental health issues for years but starting last June her symptoms got so bad they began interfering with pt's ability to do her job. Pt took FMLA but then ran out and her employer had no choice but to let me go. Pt said she left her job on good terms and she has been applying for unemployment which has helped financially. Pt reports finding work is not much of a stressor right now, she mainly wants to focus on not isolating, being more productive, and reducing the intensity of her symptoms. Pt reports when she is depressed she self-loaths and isolates. Pt also connected to the pattern of avoidance with anxiety. Pt has support from her brother at home and some close friends. Pt also is interested in learning new things and listening to [employer]. Pt reports she is looking forward to getting a second opinion from Dr. Rooney on her medications. Pt will attend IOP the next three days. Risks/Concerns:: Pt denies any suicidal ideations, plan, or intent. Admits to thoughts of and passive, SI, but no active SI. Progress Toward Goals/Plan:: Pt's first day of IOP tx and she reports being nervous but hopeful. Pt has completed IOP programs in the past and found them helpful. Pt reports she is motivated to get feedback and support from peers and facilitators. Pt wants to work on reducing her depressive symptoms, managing anxiety, and improving her ability to tolerate difficult emotions. Pt will continue seeing her outpatient therapist in addition to IOP. Pt is also established with outpatient psychiatry. Pt will continue IOP tx to prevent decompensation, improve daily functioning, and reduce negative thinking patterns. Time Stopped:: 09:20
--- NOTE | 2023-11-22 10:20 | BH.NA_ITS ---
Physical Data Vital Signs Pulse Rate: 80 Blood Pressure: 139/79 Height/Weight Height: 1.52 m Weight:: 110.677 kg Weight in Pounds: 244.0 lbs Current Medication Compliance Medication Compliance Do you take your medication as prescribed?: Yes Nutritional History Appetite Nutritional Instructions: Describe your appetite:: Fair Additional nutritional information:: Client reports a decrease in her appetite, but denies recent weight loss or gain. Functional Assessment Sleep Pattern Describe any problems with sleeping: Client states she is currently sleeping about 10 hours per day. Sensory/Communication Assess Vision Problems Do you have any vision problems?: Glasses Communication Problems Do you have difficulty understanding what people are saying?: No Medical Problems/History Cardiac Conditions Cardiovascular: Hypertension Neurological Conditions Neurological: Headaches Metabolic Conditions Metabolic: Diabetes (type 2, has been on insulin 8 years) Gastrointestinal Conditions Gastrointestinal: Other (See comments) (GERD) Surgical History Surgical History Have you had any surgeries? If so, list type and date:: Yes (cholecystectomy) Substance Abuse Substance Abuse Please describe substance abuse in the last 30 days:: Client denies alcohol, tobacco or substance use. Client denies drinking caffeine. Mental Status Summary Mental Status Significant Findings/Observations on Appearance and Mood:: Client is alert and oriented x 4. Client is casually groomed. Client is cooperative with assessment. Client makes good eye contact. Client's voice has normal rate and volume. Client has a somewhat restricted affect. Client makes logical associations and has normal processing. Client denies delusions/hallucinations. Client reports some passive thoughts of , but denies SI with intent or plan. Suicide Assessment Suicidal Ideation Are you currently or have you been suicidal in the past?: Yes Suicidal Intentional Rating Scale (SIRS): Suicidal thoughts (past) (passive thoughts of at times, denies SI) Physician Notification Past Psychiatric History MH Treatment Hx Past Psychiatric Medications:: Wellbutrin, Prozac, Zoloft, Xanax, Lexapro Age of first mental health symptoms: Client states she first took medication for her mental health around age 22 and has been on medication since then. Describe (age, circumstance, etc) any past hospitalizations: None. Current providers for mental health treatment (counselor, psychiatrist, comp field case manager, etc.): Dat at [facility] for counseling, Dr. Dyson at [facility] for psychiatry Fall Risk Assessment Age Age: Less than 60 Mental Status Mental Status: Willing & able to ask for assistance when needed Physical Status Physical Status: No problems Impairments Impairments: None Elimination Elimination: Continent AND independent Gait or Balance Gait or Balance: Walks independently Hx of Falls History of falls in the past 6 months: No known history Medications/Substances Psychotropics:: Antidepressants and Anxiolytics (e.g. benzodiazepines) Others:: Antihypertensives Medications/substances used within the past 24 hours or ordered to administer: 3 or more of the medications/substances listed above Total Score Total Points:: 2 RN Summary of Impressions Impressions Recommendations Impressions: Psychiatric Issues: 1. Major depressive disorder, recurrent, severe without psychosis 2. Panic disorder 3. Generalized anxiety disorder Impression: General Medical Conditions: Discussed diabetes with client. Client wears a Elaine CGM and is aware of hypoglycemia symptoms. Client states her last A1C was 7.0. Level of Care How do the client's current symptoms and functional deficits support need for this level of care?: Client was referred to IOP by her outpatient therapist for ongoing anxiety, depression and decrease in function. Client has had worsening depression since May 2023 and was fired in October from her job. Client states she has been having panic attacks 3-4 times per week for the last several months, and states she has been taking daily Klonopin for about 6 months now. Client endorses isolating herself, difficulty performing ADL's due to mental health, crying, decreased energy and decreased motivation. Client denies SI but states she does at times have passive thoughts of (doesn't want to be here) but denies intent or plan. IOP will promote gains and prevent further decompensation while providing social support and skills training.
[2023-11-22 10:53] VITALS: BP 139/79; PULSE 80
--- NOTE | 2023-11-22 11:15 | BH.SGPN.GN ---
Behaviors/Verbalizations/Mental Status: []Pt alert and oriented, disheveled appearance. Eye contact good. Motor activity appropriate. Speech within normal limits. Affect congruent, mood depressed. Thoughts linear, logical, no signs of hallucinations or delusions. Client Response/Progress/Benefit: [] Pt responded well to session AEB Pt listening attentively to others and providing input during group discussion on the pay offs and costs of the different communication styles. Pt able to connect how current communication style impacts mental health. Connected with peers? comments about importance of using assertive communication. Pt did well being assertive in the group activity and practiced using assertive communication in the role playing scenarios. Pt helped her group develop assertive communication responses which pt reported was difficult because she struggles with over-apologizing. ?Pt seemed to benefit from increasing awareness of healthy strategies to improve communication. Will continue IOP tx to prevent decompensation, improve daily functioning, and gain healthy coping skills. ??? Narrative Note: []
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
--- NOTE | 2023-11-22 12:55 | BH.DR.ITP ---
Initial Treatment Plan Patient Information Visit Information: ADMISSION DATE: EXPECTED LOS: 4-6 weeks Problems/Symptoms Problem #1:: Depression Symptom:: Sadness, hopelessness, worthlessness, anhedonia, biological disruption of appetite, hypersomnia, low energy, guilt, decreased concentration, passive thoughts of Problem #2:: Anxiety Symptom:: Worry, rumination, panic attacks
--- NOTE | 2023-11-23 09:03 | BH.SGPN.GN ---
Behaviors/Verbalizations/Mental Status: [] Eye contact is good. Motor activity is appropriate. Appearance is casual. Speech is Appropriate. Mood is depressed. Affect is constricted. Thoughts are linear and logical. No evidence of psychosis. Reviewed daily check in sheet and no reports of suicidal ideations or intent. Client Response/Progress/Benefit: [] Pt participated at times during the group discussion. Attentive. Daily symptom tracked notes 5 for anxiety and /5 for depression. Able to identify mental health wins and healthy habits. Pt reported mental health positive as accomplishing a task for her unemployment. Pt stated additional mental health positive as going out to lunch with a friend and thrifting. Pt stated it was nice to spend time with a support person. Pt stated her stressor as waiting on unemployment money. Benefited from group support, encouragement, and feedback. Will continue in IOP to increase consistent use of healthy coping skill, challenge distorted thoughts, and prevent decompensation.
--- NOTE | 2023-11-23 10:10 | BH.SGPN.GN ---
Behaviors/Verbalizations/Mental Status: []Pt alert and oriented, disheveled appearance. Eye contact good. Motor activity appropriate. Speech within normal limits. Affect congruent, mood depressed. Thoughts linear, logical, no signs of hallucinations or delusions. Client Response/Progress/Benefit: [] Pt was an active participant in group discussion. Attentive during psychoeducation on the CBT [place] (Thoughts, Behaviors, Emotions). Engaged in group discussion on how thoughts and behaviors can contribute to maintaining adverse feelings, such as depression, anxiety, and irritability. Completed personal maintenance cycle for depression and shared that if she tells herself ?today will be crap then it ends up being true.? Shared this maintains depression and anxiety cycles. Pt benefited from increased awareness of the basis of CBT therapy as well as specific thoughts that are impacting pt' progress. Will continue in IOP to prevent decompensation, improve daily functioning, and increase self-care. Narrative Note: []
--- NOTE | 2023-11-23 11:10 | BH.SGPN.GN ---
Behaviors/Verbalizations/Mental Status: []Pt alert and oriented, casually dressed and groomed. Eye contact good. Motor activity appropriate. Speech within normal limits. Affect congruent, mood depressed and anxious. Thoughts linear, logical, no signs of hallucinations or delusions. Client Response/Progress/Benefit: []Pt responded well to session, contributing and attentive throughout discussion. Pt identified a negative thought that has kept them stuck. Pt's thought was I am a failure.? Pt reported when they think this way, they get depressed and anxious resulting in self-deprecation. Pt worked to reframe the thought by finding more rational, realistic ways to look at the thoughts and then processed them within group setting. Pt reframed the thought to ?I have accomplished several positive things in my life?. Pt appeared to benefit from practicing challenging negative thinking. Pt will continue IOP tx to prevent decompensation, increase mood stability, and continue to reduce distorted thoughts. ? Narrative Note: []
--- NOTE | 2023-11-27 10:15 | BH.SGPN.GN ---
Behaviors/Verbalizations/Mental Status: []Pt alert and oriented, disheveled appearance. Eye contact good. Motor activity appropriate. Speech within normal limits. Affect congruent, mood depressed. Thoughts linear, logical, no signs of hallucinations or delusions. Client Response/Progress/Benefit: [] Pt responded well to session, contributing to discussion, and engaged during the activity. Group identified the benefits of change which included: increased confidence, improving mental health, and making progress. Worked with the group to identify barriers to change, which included: uncomfortable emotions such as anxiety and fear, lack of energy, worried about what others will think, and fear of the unknown. Pt participated along with group in activity where they identified and discussed the emotions related to change. Pt shared she has felt many conflicting feelings when change happens such as excitement and grief at the same time. Benefited from increased awareness and understanding of emotions, benefits, and barriers related to change. Will continue IOP tx to prevent decompensation, reduce isolation, and improve daily functioning. ? Narrative Note: []
--- NOTE | 2023-11-27 11:10 | BH.SGPN.GN ---
Behaviors/Verbalizations/Mental Status: [] Client alert and oriented, casually dressed and groomed. Eye contact good. Motor activity appropriate. Speech within normal limits. Affect congruent, mood depressed and anxious. Thoughts linear, logical, no signs of hallucinations or delusions. Client Response/Progress/Benefit: [] Client responded well to session, attentive. Did well to process activity and work with group to relate the strategies used to overcome barriers in the activity to managing change in own life. Client identified a change they would like to make as redecorating her bedroom so it is more of an inviting place for her to be. Client identified currently being in contemplation stage for this particular change. Client stated their goal is to identify the resources she will need to do so. Appeared to benefit from identifying a small goal to work towards. Client will continue IOP tx to prevent decompensation, decrease thoughts that lead to depressive symptoms and increase overall functioning. Narrative Note: []
--- NOTE | 2023-11-27 14:48 | BH.MDN_ITS ---
Multi-Disciplinary Note Note 45-min Individual: Time Started:: 12:08 Date: 11/27/23 Purpose of session/treatment goals addressed:: To work on goal #1 of pt's tx plan by learning about pt's maintenance cycles for depression and anxiety. Eye Contact:: Good Motor Activity:: Restless Appearance:: Casual Speech:: Soft Mood:: Anxious and Depressed Affect:: Congruent (tearful) Thoughts:: Racing and No evidence of hallucinations/delusions noted Staff Interventions:: thought challenging, psychoeducation on: (maintenance cycles for depression and anxiety), CBT techniques, mindfulness skills and strengths perspective Client Response:: Pt responded well to session, open to meeting with therapist. Pt reports she had a tough weekend and that she fell into a rut of depression and anxiety with panic attacks. Pt stated this was triggered when pt was trying to fill out her unemployment forms online and it was not working. Pt stated she got overwhelmed and started thinking about what if we can't keep the house and I'm a failure. Pt reported she then isolated and felt worthless. Pt shared she wished she was at [facility] over the weekend because when I'm here those negative thoughts feel less real. Pt reports she is really benefitting from the group setting and skills. Pt receptive to learning about maintenance cycles for anxiety and depression. Pt's maintenance cycle for depression included thoughts of I'm a failure, how will I find a job, we aren't going to be able to keep the house, and I'm expendable. Pt's behaviors include: isolating, withdrawing, not doing things, and napping. Pt able to see how these thoughts and behaviors reinforce depression and lead to pt feeling more upset and hopeless. Pt did this with anxiety as well. Pt and therapist also brainstormed coping skills pt can start using to break the cycles. Pt's skills including watching comedies, breathing, praying, and talking herself through it. Risks/Concerns:: Pt denies any active SI, plan, or intent as of 11/27/23. Pt denies any thoughts of . Progress Toward Goals/Plan:: Pt responded well to tx AEB pt's report that the group environment helps her mood. Pt also reports benefitting from the group topics and coping skills. Pt's mental health symptoms continue to interfere with her daily functioning and pt reported over the weekend she felt hopeless and worthless. Pt can benefit from ongoing IOP tx to prevent decompensation, improve daily functioning, and gain healthy coping skills. Time Stopped:: 12:48
--- NOTE | 2023-11-28 09:00 | BH.SGPN.GN ---
Behaviors/Verbalizations/Mental Status: []Eye contact is good. Motor activity is appropriate. Appearance is casual. Speech is Appropriate. Mood is euthymic. Affect is congruent. Thoughts are linear and logical. No evidence of psychosis. Reviewed daily check in sheet and denies suicidal thoughts or intention. Client Response/Progress/Benefit: [] Client responded well to session AEB listening to others and sharing thoughts/feelings. One of her stressors was noticing that she was having a clumsy day yesterday in which she had some dizziness that led to her falling on 2 separate occasions yesterday. Client stated she researched her current medications and realized that what side effects is possible dizziness. Client stated she has made a decision that she had to take her medication in the morning and will take that certain med in the evening so her dizziness does not impact her coordination. Client reported plans of positive was having a friend drive her to IOP this morning which she found to be a helpful distraction and connection. Client stated additional positives as making dinner yesterday and when she got home from IOP did something productive instead of just sitting around. Client stated continued stressor is completing her disability paperwork. Client stated appeared to benefit from support from peers. Will continue IOP tx to increase confidence, challenge distortions, and prevent decompensation. Narrative Note: []
--- NOTE | 2023-11-28 09:05 | BH.SGPN.GN ---
Behaviors/Verbalizations/Mental Status: [] Eye contact is good. Motor activity is appropriate. Appearance is casual. Speech is Appropriate. Mood is depressed. Affect is flat. Thoughts are linear and logical. No evidence of psychosis. Reviewed daily check in sheet and pt reports 1/5 for suicidal thoughts and 0/5 for intent. Client Response/Progress/Benefit: [] Pt was an active participant in group discussions. Attentive. Daily symptom tracker notes 4/5 for depression/anxiety and 1/5 for self-harm urges. Emotion for today is anxious. Mental health win is I'm here. Shared this weekend was rough. She isolated a great deal this weekend. Did not elaborate on triggers or obstacles to utilizing skills. Group provided support, encouragement, empathized, and provided feedback/suggestions to minimize isolation next weekend which was beneficial. Regression noted however unclear on reasons. Will continue in IOP to prevent decompensation, stabilize mood, increase healthy coping, and improve functioning. Narrative Note: []
--- NOTE | 2023-11-28 10:05 | BH.SGPN.GN ---
Behaviors/Verbalizations/Mental Status: []Pt alert and oriented, casually dressed and groomed. Eye contact good. Motor activity appropriate. Speech within normal limits. Affect congruent, mood anxious and depressed. Thoughts linear, logical, no signs of hallucinations or delusions. Client Response/Progress/Benefit: []Pt was an active participant in group discussion and activity. Attentive during psychoeducation. Along with peers, pt was able to identify barriers to taking action in their life. Identified several symptoms and stressors that pt feels are holding them back from progress such as negative self-talk, fear of failure, guilt, and isolation. Stated these things have kept pt from making healthy changes, stepping out of her comfort zone, improving relationships, and being kinder to herself. Pt shared that she wants to begin addressing the impact isolation has had on her ability to take action. Benefited from increased self-awareness of obstacles. Will continue IOP tx to improve mood management, promote consistent skill application, and further improve self-confidence. Narrative Note: []
--- NOTE | 2023-11-28 11:10 | BH.SGPN.GN ---
Behaviors/Verbalizations/Mental Status: []Pt alert and oriented, neatly dressed and groomed. Eye contact good. Motor activity appropriate. Speech within normal limits. Affect congruent, mood hopeful. Thoughts linear, logical, no signs of hallucinations or delusions. Client Response/Progress/Benefit: [] Pt responded well to session, taking notes and participating in worksheet discussion. Pt connected with the discussion on motion vs action steps and this helped pt learn how to set goals differently. Pt set a goal to reduce isolation. Pt identified motion steps including making a list of friends to contact, scheduling things throughout the week, and making a list of activities. Pt also made action steps which included plans to follow through with calling friends and picking one thing from her list today. Appeared to benefit from identifying a small goal to benefit mental health. Will continue IOP tx to prevent decompensation, reduce negative thinking patterns, and improve daily functioning. Narrative Note: []
--- NOTE | 2023-11-30 09:05 | BH.SGPN.GN ---
Behaviors/Verbalizations/Mental Status: [] Eye contact good. Motor activity appropriate. Speech within normal limits. Affect congruent, mood dysthymic and anxious. Thoughts linear, logical, no signs of hallucinations or delusions. Reviewed client?s symptom tracker, denies SI, plan, or intent as of 11/30/2023. Client Response/Progress/Benefit: [] Client receptive of session, attentive and willing to process with group. Identified mental health ?wins? as challenging herself to focus on what's in her control regarding an unexpected stressor involving her unemployment application. Shared she was informed the previous date of additional letters needed by her care team by the following afternoon. Pt shared she initially began to catastrophize and spiral, but was then able to create a plan. Shared making an outline of what was needed for her clinician and dropped it off prior to group today. Noted that she did this to reduce the likelihood of obsessing over it all day and to remind herself she did everything within her control to address the stressor. Identified that engaging in group today will also help in reducing anxiety levels associate. Client appeared to benefit from group support and encouragement. Recommended continued IOP tx to continue to improve mood stability, promote consistent skill application, and prevent decompensation. Narrative Note: []
--- NOTE | 2023-11-30 10:10 | BH.SGPN.GN ---
Behaviors/Verbalizations/Mental Status: []Eye contact is good. Motor activity is appropriate. Appearance is disheveled. Speech is Appropriate. Mood is anxious initially. Affect is congruent. Thoughts are linear and logical. No evidence of psychosis. Client Response/Progress/Benefit: [] Pt was an active participant in activity and taking notes during group discussion. Attentive during psychoeducation and interactive discussion on coping skills included why people use unhealthy skills. Group came up with list of unhealthy coping skills and pt identified personal ones as sleeping, isolating, and only paying attention to negative things. Group discussed the effects of how unhealthy coping skills can impact mental health in a negative way. Participated during experiential activity and was able to relate the activity to group topic regarding the benefits of developing strong internal and external support system. Benefited from increased understanding of unhealthy coping skills and the need for developing healthy internal and external coping skills. Pt will continue IOP tx to prevent decompensation, improve daily functioning, and reduce isolation. Narrative Note: []
--- NOTE | 2023-11-30 11:10 | BH.SGPN.GN ---
Behaviors/Verbalizations/Mental Status: []Pt alert and oriented, disheveled appearance. Eye contact good. Motor activity appropriate. Speech within normal limits. Affect congruent, mood anxious and euthymic. Thoughts linear, logical, no signs of hallucinations or delusions. Client Response/Progress/Benefit: [] Pt responded well to session, taking notes and contributing when prompted. Group discussed the different categories of coping skills which included distraction, emotional release, grounding, self-love, and thought challenging.? Pt participated in creating a coping skills ?menu? from the five categories of coping skills. Pt's coping skill menu included: journaling, catching negative self-talk, thoughts are thoughts not facts, and having a self-care routine. Appeared to benefit from increasing repertoire of healthy coping skills. Will continue IOP tx to prevent decompensation, improve daily functioning, and increase self-care practices. Narrative Note: []
--- NOTE | 2023-12-05 09:05 | BH.SGPN.GN ---
Behaviors/Verbalizations/Mental Status: [] Eye contact is good. Motor activity is appropriate. Appearance is casual. Speech is Appropriate. Mood is depressed. Affect is congruent. Thoughts are linear and logical. No evidence of psychosis. Reviewed daily check in sheet and reports 2/5 for suicidal ideations and 0/5 for intent. Therapist notified. Client Response/Progress/Benefit: [] Pt participated at times. Attentive. Tearful throughout her check-in. Daily symptom tracker notes 5/5 for depression and anxiety. Reports being overwhelmed and frustrated with stressors and her mental health. Primary stressor related to process of filing for unemployment and her finances. She was recently let go from her job and has been unable to find work due to her mental health struggles. Isolating. Ruminating. No progress noted. Benefited from group support, encouragement, and feedback. Will continue in IOP to maintain safety, prevent decompensation, increase healthy coping, and improve functioning. Narrative Note: []
--- NOTE | 2023-12-05 10:10 | BH.SGPN.GN ---
Behaviors/Verbalizations/Mental Status: []Eye contact is fair. Motor activity is appropriate. Appearance is casual. Speech is Appropriate. Mood is anxious. Affect is constricted. Thoughts are linear and logical. No evidence of psychosis. Client Response/Progress/Benefit: []Pt participated during the group discussion. Attentive during psychoeducation and actively engaged during experiential activity. Participated during interactive discussion on aspects of fixed mindset. Group identified several aspects of fixed mindset which include: inflexible, belief that one cannot grow, absolute thinking, and all of one's skills, traits, and behaviors can't change. Group identified personal examples of fixed thinking in which pt shared personal fixed thoughts as: I will never be able to work again and I will never get done with unemployment paperwork. Benefited from increased understanding of personal fixed mindsets and how they can impact mental health. Will continue in IOP to improve daily functioning, increase healthy coping, and prevent decompensation.
--- NOTE | 2023-12-05 11:10 | BH.SGPN.GN ---
Behaviors/Verbalizations/Mental Status: []Pt alert and oriented, casually dressed and groomed. Eye contact good. Motor activity appropriate. Speech within normal limits. Affect congruent-tearful, mood depressed. Thoughts linear, logical, no signs of hallucinations or delusions. Client Response/Progress/Benefit: [] Pt was an active participant during activity and discussion. Pt did well to remain attentive and participate as group worked on identifying characteristics and benefits of adopting a growth mindset. Worked with fellow participants in reframing the example fixed thoughts into growth mindset thoughts. Pt worked on changing own fixed thought and reframed the thought to ?I worked part-time before and I was successful, I just need to find the right job.? Pt appeared to benefit from challenging own thoughts and engaging in the activity. Pt will continue IOP tx to prevent decompensation, combat distorted thought patterns, and improve daily functioning. Narrative Note: []
--- NOTE | 2023-12-05 15:16 | BH.MDN ---
Multi-Disciplinary Note Note 45-min Individual: Time Started:: 12:00 Date: 12/05/23 Purpose of session/treatment goals addressed:: To work on goal #2 of pt's tx plan and to increase distress tolerance. Eye Contact:: Fair Motor Activity:: Appropriate Appearance:: Disheveled Speech:: Soft Mood:: Anxious and Depressed Affect:: Congruent (tearful ) Thoughts:: Circular and No evidence of hallucinations/delusions noted Staff Interventions:: thought challenging, CBT techniques, mindfulness skills, strengths perspective and goal setting Client Response:: Pt responded well to session, open to meeting with therapist. Pt was immediately tearful and shared she is worried about her unemployment. Pt shared she has been unable to complete certain sections online because she is waiting for her psychiatrist to fax over information. Pt reports when she gets into this headspace, she catastrophizes and then worries about losing her house. Pt able to challenge her thoughts and remind herself that she is financially stable through December. Pt wrote this down on a piece of paper to remind herself in the future when she gets anxious. Pt is also frustrated because pt has done everything in her control, but the stressor is still significant. Discussed focusing on distress tolerance rather than controlling outcomes, i.e pt can work on stepping away from her computer when she gets frustrated instead of trying the same thing over and over. Pt receptive to the idea of answering the unemployment questions on [employer] so her responses do not keep getting erased. Pt also responded well to creating a concrete plan for what she can do today. This plan included calling her psychiatrist, going home and doing one thing for self-care, and then working on unemployment for no more than an hour. Pt wants to end her night with watching something funny on TV as this could prevent pt from spiraling. Pt reported benefitting from challenging her perspective and from developing a plan. Risks/Concerns:: Pt denies any thoughts of or SI. Progress Toward Goals/Plan:: Pt's second week of IOP tx and pt reports benefitting from the group sessions and individual therapy. However, pt's external stressor of unemployment is significantly impacting her mood and functioning. Pt was very tearful today, but by the end of session pt was more hopeful. Pt continues to endorse symptoms of depression and anxiety that hinder her functioning. Pt will continue IOP tx to prevent decompensation, improve daily functioning, and increase application of healthy coping skills. Time Stopped:: 12:45
== END 2023-12-05 23:59 ==
LOC: BHIOP 09:27
PROVIDERS: PCP Family Medicine; Referring Provider Psychiatry & Neurology Psychiatry; Visit Provider Psychiatry & Neurology Psychiatry
DX: F33.1 Major depressive disorder, recurrent, moderate (principal); F41.0 Panic disorder [episodic paroxysmal anxiety]; F41.1 Generalized anxiety disorder; Z79.899 Other long term (current) drug therapy
CPT/HCPCS: 90792; H2012; H2020; S9480; T1002; 90832; 90834

== ENCOUNTER 2023-12-06 06:34 | Outpatient (RCR) | payer MEDICAID, SELFPAY ==
[2023-12-06 00:56] VITALS: BP 139/79; PULSE 80
--- NOTE | 2023-12-06 09:01 | BH.SGPN.GN ---
Behaviors/Verbalizations/Mental Status: [] Eye contact is good. Motor activity is appropriate. Appearance is casual. Speech is Appropriate. Mood euthymic. Affect is congruent. Thoughts are linear and logical. No evidence of psychosis. Reviewed daily check in sheet and pt denies active suicidal ideation, plan, intention. Client Response/Progress/Benefit: [] Pt was an active participant in group discussions. Attentive. Patient reported feeling positive this morning. Patient stated continued stressor has been waiting on the psychiatrist from her outpatient facility to complete paperwork for the unemployment office. Patient stated she went to the counseling center this morning to talk to somebody and advocate for herself to get this paperwork completed because it is stressful to not have any income. Patient noted a positive is trying to take action in a situation that she feels very much out of control. Benefited from group support, encouragement, feedback. Will continue in IOP to consistently apply healthy coping skills, challenge negative and distorted thoughts, and prevent decompensation.
--- NOTE | 2023-12-06 10:10 | BH.SGPN.GN ---
Behaviors/Verbalizations/Mental Status: []Pt alert and oriented, appropriate grooming/appearance. Eye contact good. Motor activity appropriate. Speech within normal limits. Affect congruent, mood anxious and dysthymic. Thoughts linear, logical, no signs of hallucinations or delusions. Client Response/Progress/Benefit: []Pt was an active participant in group discussions. Attentive during psychoeducation. Contributed during interactive discussions in which peers attempted to define crisis. Pt identified examples of potential crisis. Group also worked together to identify unhealthy responses to crisis which included; isolation, self-harm, substance abuse, avoidance, and distraction. Pt identified personal warning signs as increased crying, poor self-care, and isolation. Benefited from increased understanding of crisis and awareness of personal responses to crisis. Pt will continue IOP tx to reduce ruminating thoughts, increase healthy coping, and prevent decompensation. Narrative Note: []
--- NOTE | 2023-12-06 11:10 | BH.SGPN.GN ---
Behaviors/Verbalizations/Mental Status: []Eye contact is good. Motor activity is appropriate. Appearance is casual. Speech is Appropriate. Mood is content. Affect is congruent. Thoughts are linear and logical. No evidence of psychosis. Client Response/Progress/Benefit: [] Pt was an active participant in group discussions. Attentive during psychoeducation. In small group pt along with peers developed an active plan for their crisis warning signs. Pt identified three crisis warning signs as well as an action plan for each. One crisis warning sign was increased crying. Pt identified coping skills to help with this such as: using distractions, reading affirmations, prayer, and deep breathing. Benefited from increased awareness of crisis warning signs and by developing crisis intervention strategies. Will continue in IOP to prevent decompensation, increase distress tolerance, and promote mood stability. ? Narrative Note: []
--- NOTE | 2023-12-06 12:12 | PCM.BH.PN ---
Progress Note Progress Note: History of Present Illness/Interim History: The patient is a 58-year-old single, female with a long history of depression, anxiety and panic disorder who is seen in follow-up at the [facility] behavioral [facility]. I last saw the patient 2 weeks ago and it Wellbutrin was added at that time to help with her depression. According to staff the patient has been engaged in the program and consistent in her attendance. She feels she is learning valuable skills and staff feels she has made some progress. The patient states that she feels better overall but is still somewhat depressed. The patient states that she still has a little bit of dizziness which occurs once a day a few hours after she takes her Wellbutrin and it last for less than 1/2-hour. She has had dizziness in the past also but that was due to low blood sugar and she thinks this time it is due to the Wellbutrin. However, she states that it is mild and she feels that she wants to stay on the Wellbutrin because she feels it has benefited her in the past 2 weeks. Her mood is less depressed and she is doing much less crying than before. She denies anhedonia and now and hopelessness is only on occasion. She has passive thoughts of much less now and only had it 1 time in the past week. She still has some trouble getting out of bed and wants to sleep a lot still. Energy level is still not normal but might be a little better and she might be a little more motivated since starting the Wellbutrin. She denies suicidal ideation, plan for suicide, homicidal ideation, hallucinations, delusions or jimbo symptoms. Current Psychiatric Medications: [] Paxil 40 mg p.o. daily; trazodone 50 mg p.o. nightly; Klonopin 0.5 mg p.o. every morning; hydroxyzine 25 mg as needed but patient takes it only 2-3 times a week; Wellbutrin XL 150 mg p.o. every morning (started 2 weeks ago) Mental Status Examination: [] The patient is an obese 58-year-old female who wears glasses and appears normal or little older than stated age. She is casually dressed and groomed with good hygiene and is ambulatory with a normal gait. She has no psychomotor agitation or retardation. She is cooperative and pleasant during the interview. Eye contact is good and speech is normal rate and rhythm and fluent with no pressure. Mood is depressed. Affect is minimally constricted. Thought process is goal-directed and organized. Thought content: There is no evidence of passive thoughts of , suicidal ideation, plan for suicide, homicidal ideation, hallucinations, delusions or symptoms of jimbo. Reality testing is intact. Judgment is intact. Insight: Some present. Impulsivity moderate to high Diagnoses: [] 1. Major depressive disorder, recurrent, severe without psychosis 2. Panic disorder 3. Generalized anxiety disorder 4. Work and primary support issues Plan: [] The patient will continue the IOP in behavioral health as the structure, support, education and group therapy will hopefully prevent worsening of the patient's symptoms. She felt safe during the interview and if it anytime she does not feel safe she will let us know or go to the emergency room. The risk, options, possible side effects and complications of the medications were again discussed with the patient and she understands and accepts these. The patient wishes to continue the Wellbutrin as she feels it is benefiting her and the dizziness is improving. The patient understands if the dizziness persists we may have to discontinue the Wellbutrin. At some point we should try to wean the Klonopin 0.5 mg in the morning that she came her on as it might be contributing to dizziness and falls also. Patient has not fallen with the Wellbutrin since it was started. She will continue to follow-up with her outpatient providers and I will see the patient in follow-up in 2 weeks.
--- NOTE | 2023-12-07 09:05 | BH.SGPN.GN ---
Behaviors/Verbalizations/Mental Status: [] Eye contact is good. Motor activity is appropriate. Appearance is casual. Speech is Appropriate. Mood is depressed. Affect is congruent. Thoughts are linear and logical. No evidence of psychosis. Reviewed daily check in sheet and no reports of suicidal ideations or intent. Client Response/Progress/Benefit: [] Pt participated at times during the group discussion. Attentive. Daily symptom tracker notes 10/09 for depression/anxiety and 08/11 for self-harm urges. States that she has been in an obsessive mood which significant rumination and intrusive thoughts regarding her unemployment benefits. It's all I think about. She has taken group suggestions from early this week and is attempting to practice reframing, mindfulness, acceptance, and distraction which has helped. Benefited from discussion and feedback on breaking obsessive thoughts. Will continue in IOP to maintain safety, stabilize mood, and improve functioniong. Narrative Note: []
--- NOTE | 2023-12-07 10:10 | BH.SGPN.GN ---
Behaviors/Verbalizations/Mental Status: []Pt alert and oriented, casually dressed and groomed. Eye contact good. Motor activity appropriate. Speech within normal limits. Affect congruent, mood dysthymic, anxious. Thoughts linear, logical, no signs of hallucinations or delusions. Client Response/Progress/Benefit: [] Pt connected with topic of anxiety and participated throughout, providing input and taking notes. Participated throughout interactive discussion defining anxiety and identifying cognitive and physiological symptoms of anxiety. Group discussed how anxiety can prevent them from trying new things. Pt identified their physical signs of anxiety as: headache, loss of sleep, restlessness, and increase heart rate. Pt identified safety behaviors as: crying, over-thinking, and avoidance. Benefited from increased awareness and insight on anxiety and its impact. Pt will continue IOP tx to prevent decompensation, improve daily functioning, and increase self-confidence. Narrative Note: []
--- NOTE | 2023-12-07 11:10 | BH.SGPN.GN ---
Behaviors/Verbalizations/Mental Status: []Pt alert and oriented, neatly dressed and groomed. Eye contact good. Motor activity appropriate. Speech within normal limits. Affect congruent, mood euthymic. Thoughts linear, logical, no signs of hallucinations or delusions. Client Response/Progress/Benefit: [] Pt was an active participant AEB pt providing input and listening attentively to peers. Attentive during psychoeducation on mindfulness coping skills and their impact on reducing anxiety and improving overall mental health wellness. Group was able to identify self-soothing and mind-based coping skills which included: 5-senses, meditation, deep breathing, TIPP, thought challenging, and progressive muscle relaxation. Pt also participated with peers in practicing mindfulness skills in session. Pt would like to work on getting outside more to manage her anxiety. Appeared to benefit from increasing repertoire of anxiety reduction skills. Pt will continue in IOP tx to promote mood stability, reduce negative thinking patterns, and improve daily functioning. Narrative Note: []
--- NOTE | 2023-12-11 10:10 | BH.SGPN.GN ---
Behaviors/Verbalizations/Mental Status: [] Eye contact is good. Motor activity is appropriate. Appearance is casual. Speech is Appropriate. Mood is dysthymic. Affect is congruent. Thoughts are linear and logical. No evidence of psychosis. Client Response/Progress/Benefit: [] Client receptive to session AEB listening attentively to others and taking notes. Limited input however was attentive throughout psychoeducation on the cognitive triangle and maintenance cycles.Attentive during group discussion reviewing the impact of daily activities and behaviors in either reinforcing unhealthy maintenance cycles and depression or assisting in reducing symptoms (?down? vs ?up? activities). Client was attentive as peers identify ?down? activities they engage in such as: excessive sleep, isolation, not eating, and using substance to cope. Attentive during discussion on Common ?Up? activities clients identified which included: music, comfort shows, board games, talking with friends, taking medications, and completing tasks. Appeared to benefit from increased awareness of current behaviors and impact these have on mental health. Will continue in IOP to stabilize mood, prevent decompensations, increase healthy coping, and improve functioning. Narrative Note: []
--- NOTE | 2023-12-11 11:10 | BH.SGPN.GN ---
Behaviors/Verbalizations/Mental Status: []Eye contact is fair. Motor activity is appropriate. Appearance is fair. Speech is Appropriate. Mood is dysthymic. Affect is constricted. Thoughts are linear and logical. No evidence of psychosis. Client Response/Progress/Benefit: [] Pt responded well to session, attentive and engaged in group discussions and activity. Group discussed values and the benefits that knowing one's values can have on one's mental health. Pt explored own values and identified personal top values. Pt stated a personally important value is spirituality. Pt set a goal to improve engagement in this value. Goal identified as go to [employer] on Monday if her friend will be going. Pt appeared to benefit from exploring values and creating a weekly goal. Pt also reported benefitting from the activity and the group encouragement today. Will continue in IOP to increase consistent use of healthy coping skills, challenge distortions, and prevent decompensation.
--- NOTE | 2023-12-11 11:32 | BH.MDN ---
Multi-Disciplinary Note Note 45-min Individual: Time Started:: 09:25 Date: 12/11/23 Purpose of session/treatment goals addressed:: To work on goal #2 of pt's tx plan. Eye Contact:: Good Motor Activity:: Appropriate Appearance:: Casual Speech:: Appropriate Mood:: Euthymic and Anxious Affect:: Congruent (tearful at times) Thoughts:: Linear, Logical and No evidence of hallucinations/delusions noted Staff Interventions:: thought challenging, CBT techniques, mindfulness skills, strengths perspective, goal setting and taught coping skills Client Response:: Pt responded well to session, open to meeting with therapist. Pt's stressor with unemployment is ongoing and pt reports she is still waiting for a fax from her psychiatrist. Pt recognizes that when she becomes overwhelmed she cries and begins to ruminate about the worst case scenarios. Pt did reflect on progress last night with using healthy coping skills to combat her ruminations and this helped temporarily. Pt's goal today is to call [facility] to get some clarification. In the meantime, pt is encouraged to practice calming skills and grounding strategies. Pt stated deep breathing, prayer, and comedy helps her. Pt appeared to benefit from identifying self-talk statements she can use when she begins to spiral. Pt wrote these out on a piece of paper and was encouraged to read them to herself throughout the day. Pt also reminded to set boundaries with herself and practice opposite action. Pt appeared to benefit from discussion and was more hopeful leaving session per her report. Risks/Concerns:: Pt denies any active SI or thoughts of . Progress Toward Goals/Plan:: Pt continues to experience external stressors that impact her overall mental health and functioning. Pt is getting better at problem-solving instead of shutting down when she is overwhelmed. Pt endorses a depressed mood, crying spells, ruminations, and constant worry. Pt plans to call [facility] today to clarify some missing paperwork. Pt will continue IOP tx to prevent decompensation, improve daily functioning, and increase distress tolerance skills. Time Stopped:: 10:05
--- NOTE | 2023-12-12 09:00 | BH.SGPN.GN ---
Behaviors/Verbalizations/Mental Status: [] Client alert and oriented, casual appearance. Eye contact good. Motor activity appropriate. Speech within normal limits. Affect congruent, mood euthymic. Thoughts linear, logical, no signs of hallucinations or delusions. Reviewed client?s symptom tracker, no risk for suicidal ideation, plan, or intent. Client Response/Progress/Benefit: [] Client responded well to session AEB listening to others and sharing thoughts/feelings. Client reported mental health positive as her outpatient psychiatrist finally sent out the unemployment paperwork she had been waiting on. Client stated this being done has decreased her anxiety because she's closer to getting paid unemployment now. Client reported additional positive as cooking a meal for her brother. Client reported believes her mood has improved. Appeared to benefit from support from peers. Will continue IOP tx to increase consistent use of healthy coping skills, challenge distortions, and prevent decompensation. Narrative Note: []
--- NOTE | 2023-12-12 10:05 | BH.SGPN.GN ---
Behaviors/Verbalizations/Mental Status: []Eye contact is good. Alert and oriented. Motor activity is appropriate. Appearance is casual. grooming is appropriate. Speech is Appropriate. Mood is euthymic. Affect is congruent. Thoughts are linear and logical. No evidence of psychosis or hallucinations. Client Response/Progress/Benefit: []Client an active participate AEB providing contributions, listening attentively to others, and taking notes throughout. The group identified the impact of emotions on communication such as change in tone, body language, shutting down, misperceiving the communication, and willingness to communicate. Client shared struggling with shutting down or crying when experiencing increased anxiety and agitation. During group activity, client did well to provide insight on how her emotions impacted communication with fellow participants. Client benefited from session by gaining an increased understanding on the importance of managing emotions to improve daily functioning. Client will continue IOP to further improve mood stability, improve use of skills for better symptom management, and prevent decompensation. Narrative Note: []
--- NOTE | 2023-12-12 11:05 | BH.SGPN.GN ---
Behaviors/Verbalizations/Mental Status: []Pt alert and oriented, casually dressed and fairly groomed. Eye contact good. Motor activity appropriate. Speech within normal limits. Affect congruent, mood euthymic. Thoughts linear, logical, no signs of hallucinations or delusions. Client Response/Progress/Benefit: [] Pt engaged in session AEB Pt listening attentively to peers and providing input. Attentive during psychoeducation on 4 zones of regulation. Pt able to identify feelings and behaviors for each zone. Pt identified coping skills one can use to support self in each zone. Identified being in the green zone today ?for the first time in a long time.? Pt wants to stay in this zone, so she is going to focus on accomplishing laundry today. ?Benefited from increased education on zones of regulation or stages of alertness for emotions and healthy coping skills to use for each zone. Will continue IOP tx to challenge distortions, improve daily functioning, and increase motivation. Narrative Note: []
--- NOTE | 2023-12-13 12:30 | BH.MTP_ITS ---
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 Pt consistently completes homework provided from individual counseling. Pt contributes during group discussions, takes notes, appears to listen to others, and engages in group activities. However, pt's DSM-5 scores have not decreased since admission which is likely linked to stressor of not receiving unemployment yet. Status of Current Problems and Symptoms: Pt continues to endorse a depressed mood, lack of energy, hopelessness, catastrophizing, worthlessness at times, guilt, and negative thoughts of self. Pt is struggling with utilizing healthy coping skills during high moments of anxiety/panic. Pt's stressor with unemp loyment is ongoing and a large contributor to pt's mental health symptoms. Pt continues to endorse anxiety, isolation, crying spells, and frequent rumination. Progress Problem #1: Problem Name:: Depression, SI, isolation, crying spells, and negative thinking Status of Goals:: Objective 1- not complete. Pt?s scores for depression and SI have not decreased since admission. However, they have also not worsened which is progress considering pt?s ongoing stressors. Pt also is consistent with attendance and very engaged in sessions. Objective 2-in progress. Pt is working on completing a daily habit tracker which will help pt keep track of her daily self-care goals. Team Recommendations:: Tx team recommends that pt continue working on these goals as pt can benefit from identifying and reframing distortions and utilizing healthy coping skills. Pt also encouraged to begin working on a habit tracker to help pt get back into daily habits and form healthy patterns. Problem #2: Problem Name:: Anxiety, panic, and ruminations. Status of Goals:: Objective 1- not complete. Pt?s scores for anxiety have not decreased since admission. However, pt is working on using calming skills more consistently and utilizing thought challenging to help pt when she catastrophizes. Objective 2-in progress. Pt has learned through group and individual sessions what kinds of coping skills can help pt regulate her emotions. Pt has been using comedies, reading, and reaching out to support. Team Recommendations:: Treatment tx encourages pt to continue working on this goal to reduce ruminations and increase self-confidence in her ability to overcome stressors. Pt also encouraged to reach out to her providers at [facility] to clarify some of pt's questions.
--- NOTE | 2023-12-19 09:05 | BH.SGPN.GN ---
Behaviors/Verbalizations/Mental Status: [] Eye contact is good. Motor activity is appropriate. Appearance is casual. Speech is Appropriate. Mood is depressed. Affect is congruent. Thoughts are linear and logical. No evidence of psychosis. Reviewed daily check in sheet and no reports of suicidal ideations or intent. Client Response/Progress/Benefit: [] Pt was an active participant in group discussions. Attentive. Emotion for today is anxious. Daily symptom tracker notes 4/5 for depression and 2/5 for anxiety. States Weekend was hard. Struggling to get up and out of bed in the AM due to depression. Limited structure and accountability. Group provided support and feedback on possible strategies to implement to decrease morning struggles which was beneficial. Finances and obstacles maneuvering the unemployment process has also been a constant source of frustration. Will continue in IOP to prevent decompensation, stabilize mood, increase healthy coping, and improve functioning. Narrative Note: []
--- NOTE | 2023-12-19 11:15 | BH.SGPN.GN ---
Behaviors/Verbalizations/Mental Status: []Pt alert and oriented, casually dressed and groomed. Eye contact good. Motor activity appropriate. Speech within normal limits. Affect congruent, mood anxious and euthymic. Thoughts linear, logical, no signs of hallucinations or delusions. Client Response/Progress/Benefit: [] Pt was an active participant in group discussions and experiential activity. Attentive during psychoeducation on the 4 A's (Avoid, adapt, alter, accept) of coping with stress. Shared that they would benefit most from adapting to stressors in her jar. Pt wants to adapt her expectations for bills and adapt her strategies for time management. Was able to identify the connection between the experiential activity and utilization of stress management skills. Benefited from increased awareness of stress management strategies. Pt will continue IOP tx to prevent decompensation, improve daily functioning, and increase distress tolerance skills. Narrative Note: []
--- NOTE | 2023-12-20 09:50 | BH.COMM ---
Communication Note Communication with Client Communication Note: Pt cancelled IOP this AM due to illness. She was scheduled to meet with program psychiatrist today.
--- NOTE | 2023-12-20 10:10 | BH.SGPN.GN ---
Behaviors/Verbalizations/Mental Status: [] Eye contact is good. Motor activity is appropriate. Appearance is casual. Speech is Appropriate. Mood is dysthymic. Affect is congruent. Thoughts are linear and logical. No evidence of psychosis. Client Response/Progress/Benefit: [] Pt receptive to session AEB contributing to small group discussion, as well as listening attentively to others, and taking notes. Worked with group to brainstorm the positive and negative aspects of stress on physical and mental health as well as the impact of distress on performance, relationships, and mental health. Pt shared her top stressors to be: chores, bills, and not having a job. Shared when feeling overwhelmed with stress she tends to lash out, be more irritable, and shut down. Benefited from increased awareness of good/bad stress as well as how stress impact individuals. Will continue in IOP to promote use of healthy coping skills, challenge distorted thoughts, and prevent decompensation.
--- NOTE | 2023-12-22 08:33 | BH.COMM ---
Communication Note Communication with Client Communication Note: Pt was sick twice this week and due to this missed her scheduled IOP individual session. Pt plans to attend on 12/25/23.
--- NOTE | 2023-12-26 09:05 | BH.SGPN.GN ---
Behaviors/Verbalizations/Mental Status: [] Pt alert and oriented, neatly dressed and groomed. Eye contact good. Motor activity appropriate. Speech within normal limits. Affect congruent, mood dysthymic. Thoughts linear, logical, no signs of hallucinations or delusions. Reviewed pt?s symptom tracker, no risk for suicidal ideation, plan, or intent 12/26/23 Client Response/Progress/Benefit: []Pt responded well to session, attentive and engaged. Pt reports feeling tired this morning after being gone from IOP several days due to illness. Pt shared she was anxious to return but I don't know why. Pt's peers helped normalize this and remind pt that being sick is a common trigger for anxiety and depression. Pt's mental health wins today include showering today, getting to group, and feeling ready to start working again part-time. Pt appeared to benefit from connecting with peers and getting feedback. Pt will continue IOP tx to prevent decompensation, increase the use of healthy coping skills, and combat distortions. Narrative Note: []
--- NOTE | 2023-12-26 10:05 | BH.SGPN.GN ---
Behaviors/Verbalizations/Mental Status: [] Client alert and oriented, casually dressed and groomed. Eye contact good. Motor activity appropriate. Speech within normal limits. Affect congruent, mood euthymic. Thoughts linear, logical, no signs of hallucinations or delusions. Client Response/Progress/Benefit: []Client was an active participant, AEB taking notes and providing input in group discussions and activities. Attentive during psychoeducation. Client engaged during interactive discussion in which the group defined self-care and discussed its benefits. Group discussed barriers to engaging in self-care. Group members together came up with guilt, anxiety, and feeling weak as barriers to engage in self care. Client participated in small groups where they worked to identify common self-care ?myths?. Benefited from increased awareness of self-care, its benefits, and the consequences of not utilizing self-care strategies. Will continue IOP tx to prevent decompensation,increase emotional regulations skills, and continue to improve mood stability. Narrative Note: []
--- NOTE | 2023-12-26 11:05 | BH.SGPN.GN ---
Behaviors/Verbalizations/Mental Status: [] Client alert and oriented, casually dressed and groomed. Eye contact good. Motor activity appropriate. Speech within normal limits. Affect congruent, mood euthymic. Thoughts linear, logical, no signs of hallucinations or delusions. Client Response/Progress/Benefit: [] Client engaged participant AEB completing self-assessment of current self care and providing input throughout discussion. Client completed worksheet identifying current self-care practices and what self-care activities client wants to start using. Client selected physical self-care to begin practicing more consistently. Client plans to do this by starting a membership at [employer]. Appeared to benefit from completing the self-care evaluation and gaining insights into current self-care practices, as well as identifying areas in which client would like to improve upon. Client will continue IOP tx to prevent decompensation and increase overall self worth. Narrative Note: []
--- NOTE | 2023-12-28 10:51 | BH.MDN_ITS ---
Multi-Disciplinary Note Note 60-min Individual: Time Started:: 09:10 Date: 12/28/23 Purpose of session/treatment goals addressed:: To work on goal #2 of pt's tx plan and to discuss discharge. Eye Contact:: Good Motor Activity:: Appropriate Appearance:: Neat Speech:: Appropriate Mood:: Euthymic and Anxious Affect:: Congruent (smiling, but also crying when reflecting on the past.) Thoughts:: Linear, Logical and No evidence of hallucinations/delusions noted Staff Interventions:: thought challenging, CBT techniques, discharge planning, strengths perspective and other (Decisional balance exercise.) Client Response:: Pt responded well to session, open to meeting with therapist. Pt reports that she has been feeling better since being sick. Pt was worried that she would fall back into isolation and negative thinking because she had been laying in bed a lot. Pt did have some isolation and she shared it was hard for her to get out of bed a few days because of her depression, but pt used opposite action today and she is glad she came to [facility]. Pt shared she is still stressed about unemployment stuff, but pt can talk about this stressor without crying and she reports a better ability to problem-solve. 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 Pt utilized self-compassion techniques to practice being more understanding and realistic with herself. Discussed potential jobs in the future and pt feels she is ready for part-time. Pt also wants to work on making her home environment more mine not my parents as pt feels this will help her mood and motivation as well. Pt needs to discuss this with her brother as he lives with pt and pt stated he holds sentiment value to items. This makes it difficult for pt to get rid of anything that was their parents, but pt knows she needs to have the conversation. Pt was given a decisional balance exercise to help pt identify how she wants to approach this change. Risks/Concerns:: Pt denies any thoughts of or SI. Progress Toward Goals/Plan:: Pt continues to make progress on her tx goals AEB pt's self-report of bouncing back from recent illness much quicker than she has in the past. Pt stated sickness often triggers a depressive episode, but pt was able to prevent a full blown episode. Pt also making progress AEB pt's ability to challenge anxious thoughts and distortions. Pt reports that she is handling external stressors such as unemployment much better and she feels she is ready to go back to part-time work. Pt still endorses symptoms of depression and anxiety that impact her functioning, but she is improving. Pt will continue IOP tx to promote gains, reduce negative thinking patterns, and increase confidence. Time Stopped:: 10:10
--- NOTE | 2024-01-03 09:05 | BH.SGPN.GN ---
Behaviors/Verbalizations/Mental Status: [] Eye contact is good. Motor activity is appropriate. Appearance is casual. Speech is Appropriate. Mood is depressed. Affect is flat. Thoughts are linear and logical. No evidence of psychosis. Reviewed daily check in sheet and pt reports 4/5 for suicidal ideations and 2/5 for risk. Therapist notified. Client Response/Progress/Benefit: [] Pt participated at times during the group discussion. Attentive. Daily symptom tracker notes 4/5 for depression, anxiety, and self-harm urges. Admits to the group that she has been struggling for the past several days. Difficulty getting up and going in the AM. States I has to fight hard to get here today. Using thought challenging and reframing in the AM to motivation herself. Also utilize behavior activation, however most days is struggle to get out of bed. Also reports increase anxiety and restlessness. No overt stressors noted. She is hoping to find a part-time job in the near future. She gets benefits from work (Structure, accountability, and social aspects). Regression noted, however not overt trigger. Benefited from group support, encouragement, and feedback. Will continue in IOP to prevent decompensation, stabilize mood, and increase healthy coping. Narrative Note: []
--- NOTE | 2024-01-03 11:10 | BH.SGPN.GN ---
Behaviors/Verbalizations/Mental Status: []Pt alert and oriented, casually dressed and groomed. Eye contact good. Motor activity appropriate. Speech within normal limits. Affect congruent, mood euthymic and anxious. Thoughts linear, logical, no signs of hallucinations or delusions. Client Response/Progress/Benefit: [] Pt responded well to session AEB taking notes and contributing to discussion throughout. Pt engaged as group continued discussion on acceptance and the mental health benefits of practicing acceptance. Pt and peers identified what makes acceptance challenging and pt completed a self-reflection exercise on what is hard to accept in pt's life. Pt identified what is hard to accept in life and how it makes things harder when resists acceptance. Group identified strategies to increase acceptance and pt wants to work on ?adjusting goals and standards for my current self.? Pt appeared to benefit from gaining insight and learning strategies to increase acceptance. Pt will continue IOP tx to promote mood stability, increase distress tolerance, and improve self-compassion. Narrative Note: []
--- NOTE | 2024-01-03 11:38 | PCM.BH.PN_ITS ---
Progress Note Progress Note: History of Present Illness/Interim History: The patient is a 58-year-old single female with a history of depression, anxiety and panic disorder who is seen in follow-up at the [facility] behavioral health [facility]. I last saw the patient 4 weeks ago and at that time no medication changes were made. The patient has been doing well overall and according to the staff has been making progress. Patient states she had the flu several weeks ago but has recovered from it now. She feels that she is benefiting from the program and she feels much Colmer than she did before. She does not have any crying jags anymore and has having less panic attacks. She denies hopelessness and denies passive thoughts of now. She also denies suicidal ideation, plan for suicide, homicidal ideation, hallucinations or delusions. She is looking forward to getting a part-time job soon. She did have a relapse and self-harm and cut herself once a few weeks ago. She is still having thoughts or urges to self-harm but has been able to resist any actions of it by using the skills she is learning in the IOP. Side effects that she had from the Wellbutrin have completely resolved. Current Psychiatric Medications: [] Paxil 40 mg p.o. daily; trazodone 50 mg p.o. nightly; Klonopin 0.5 mg p.o. every morning; Wellbutrin XL 150 mg every morning (x 6 weeks) Mental Status Examination: [] Patient is an obese 58-year-old female who wears glasses and appears normal or little older than stated age. She is ambulatory with a normal gait and is casually dressed and groomed with good hygiene. She is cooperative during the interview and has no psychomotor agitation or retardation. Eye contact is good and speech is normal rate and rhythm and fluent with no pressure. Mood is depressed. Affect is full and normal. Thought process is goal-directed and organized. Thought content: The patient is hopeful for the future. There is no evidence of passive thoughts of , suicidal ideation, plan for suicide, homicidal ideation, hallucinations or delusions. Reality testing is intact. Judgment is intact. Insight: Fair. Impulsivity: High. Diagnoses: [] 1. Major depressive disorder, recurrent moderate 2. Panic disorder 3. Generalized anxiety disorder 4. Cluster B traits 5. Work and primary support issues Plan: [] The patient will continue the IOP and behavioral health as the structure, support, education and group therapy will hopefully continue to benefit her and help her progress. She felt safe during the interview and if it anytime she does not feel safe she will let us know or go to the emergency room. No medication changes were made today. She will continue to follow-up with her outpatient providers and I will see the patient in follow-up in 2 weeks.
--- NOTE | 2024-01-03 15:41 | BH.MDN_ITS ---
Multi-Disciplinary Note Note 60-min Individual: Time Started:: 12:25 Date: 01/03/24 Purpose of session/treatment goals addressed:: To address any barriers, review aftercare plan, and identify strategies to promote gains after IOP discharge. Eye Contact:: Good Motor Activity:: Restless Appearance:: Casual Speech:: Appropriate and Tangential Mood:: Euthymic and Anxious (mildly) Affect:: Congruent Thoughts:: Circular and No evidence of hallucinations/delusions noted Staff Interventions:: thought challenging, motivational interviewing, CBT techniques, mindfulness skills, discharge planning, strengths perspective, goal setting, taught coping skills and other (began maintenance plan ) Client Response:: Pt responded well to session, open to meeting with therapist. Pt reports she is feeling better and she is glad to be back at [facility] as pt missed almost a week due to illness. Pt shared she did fall back into old habits, but pt feels using opposite action helped her today. Pt stated she feels that she is using the skills discussed in IOP more consistently and finding them beneficial. Pt completed the decisional balance from last session and pt feels she is ready to work part-time. Pt has been contemplating what kind of a job she wants and pt feels the best option would be a job like the one she had at the [employer]. Discussed what could keep pt moving forward and making progress which introduced the topic of maintenance plans. Pt recognizes that her self-talk continues to be negative and pt was receptive to discussion of healing one's inner child. Discussed how pt can begin to talk to herself like the caregiver she needed when she was a little girl. Pt reported that a lot of her all or nothing thinking and negative self-talk stems from childhood and expectations of perfection. Pt receptive to working on this for homework as well as working on the maintenance plan provided. Pt also plans to get a hair cut this week as pt shared this will improve her self-confidence. Risks/Concerns:: Pt denies any suicidal ideations, plan, or intent. Pt scored higher today for self-harm urges and pt reports she has been having more lately. Pt reports belief this is due to anxiety about her upcoming discharge in a few weeks. Progress Toward Goals/Plan:: Pt recently had some setbacks with depressive symptoms and anxiety which was triggered by pt being sick. Pt feels that she is doing a good job of bouncing back and not isolating. Pt reports she is glad to be back at [facility] and was receptive to working on her maintenance plan. Pt also asked IOP staff to fax a letter for pt's unemployment which will be done next week. Pt continues to report anxious thought patterns, urges to self-harm, negative self-talk, and isolation. Pt will continue IOP tx to promote mood stability, increase distress tolerance skills, and improve self-confidence. Time Stopped:: 13:20
--- NOTE | 2024-01-05 09:05 | BH.SGPN.GN ---
Behaviors/Verbalizations/Mental Status: [] Eye contact good. Motor activity appropriate. Speech within normal limits. Affect congruent, mood anxious and depressed. Thoughts linear, logical, no signs of hallucinations or delusions. Reviewed client?s symptom tracker, denies SI, plan, or intent as of 01/05/2024. Does indicate elevated thoughts of harming herself but denies these are suicidal in nature. Reports ability to maintain safety, is future oriented, and has several protective factors including snow and family. Client Response/Progress/Benefit: [] Client receptive of session, attentive and willing to process with group. Identified mental health ?wins? today as making it here this morning as she cancelled yesterday due to anxiety and depression. Shared struggling recently with managing her anxious thoughts and feeling she is backsliding. Reports this may in part be due to upcoming discharge from IOP and fear she won't be ready. Did well to work with group on challenging these thoughts and reminding herself that a difficult moment or setback does not take away the progress made. Did well to identify an additional win as challenging thoughts that she will be unable to find a part-time job and reminded herself this may be a process that takes time. Receptive of and appeared to benefit from supportive feedback and suggestions from the group. Recommended continued IOP tx to continue to improve mood stability, promote consistency of skill application, and prevent decompensation. Narrative Note: []
--- NOTE | 2024-01-05 11:15 | BH.SGPN.GN ---
Behaviors/Verbalizations/Mental Status: []Client alert and oriented, casually dressed and fairly groomed. Eye contact good. Motor activity appropriate. Speech within normal limits. Affect congruent, mood depressed, anxious. Thoughts linear, logical, no signs of hallucinations or delusions. Client Response/Progress/Benefit: []Pt was engaged throughout AEB contributing to group discussion and self-reflection. Group finished processing cues to anger worksheet. Pt contributed as group brainstormed healthy coping skills for better managing anger which included: music, walking/exercise, taking a break, reflection, and journaling. Attentive in discussion about identifying personal anger cycle and. Stated will work on changing environment and journaling as skills/strategies to prevent unhealthy anger response. Pt appeared to benefit from identifying different techniques to manage anger as well as gaining awareness of potential consequences of unmanaged anger. Pt to continue IOP to increase consistent use of healthy coping skills, challenge distortions, and prevent decompensation.
== END 2024-01-05 23:59 ==
LOC: BHIOP 06:34
PROVIDERS: PCP Family Medicine; Referring Provider Psychiatry & Neurology Psychiatry; Visit Provider Psychiatry & Neurology Psychiatry
DX: F33.1 Major depressive disorder, recurrent, moderate (principal); F41.0 Panic disorder [episodic paroxysmal anxiety]; F41.1 Generalized anxiety disorder; Z79.899 Other long term (current) drug therapy
CPT/HCPCS: 99213; H2012; H2020; S9480; 90834; 90837

== ENCOUNTER 2024-01-08 08:10 | Outpatient (RCR) | payer MEDICAID, SELFPAY ==
--- NOTE | 2024-01-05 10:10 | BH.SGPN.GN ---
Behaviors/Verbalizations/Mental Status: [] Eye contact is good. Motor activity is appropriate. Appearance is casual. Speech is Appropriate. Mood is depressed. Affect is congruent. Thoughts are linear and logical. No evidence of psychosis Client Response/Progress/Benefit: [] Pt responded well to session AEB contributing to small group discussion, taking notes, and listening attentively to others. Participated during interactive discussion in which pt and peers defined anger and discussed the benefits of managed anger and anger as a secondary emotion. Group identified several emotions which can drive anger which included; pain, confusion, jealously, regret, loss, embarrassment, and exhaustion. Appeared to benefit from increased knowledge of the anger cycle as well as personal triggers. Will continue IOP to maintain safety, increase healthy coping, and improve functioning to return to work. Narrative Note: []
[2024-01-06 02:30] VITALS: BP 139/79; PULSE 80
--- NOTE | 2024-01-08 09:57 | BH.COMM ---
Communication Note Communication with Client Communication Note: Pt canceled her scheduled IOP group day today. Pt has been canceling more frequently and pt reports it is due to anxiety. Pt shared she is anxious about leaving IOP and about getting a job. Pt was encouraged to utilize coping skills today and to attend group tomorrow to prevent further decompensation. Pt was agreeable.
--- NOTE | 2024-01-09 09:00 | BH.SGPN.GN ---
Behaviors/Verbalizations/Mental Status: [] Eye contact good. Motor activity appropriate. Speech within normal limits. Affect congruent, mood anxious, content. Thoughts linear, logical, no signs of hallucinations or delusions. Reviewed client?s symptom tracker, denies SI, plan, or intent as of 01/09/2024. Client Response/Progress/Benefit: [] Client receptive of session, attentive and willing to process with group. Identified mental health ?wins? today as making dinner last night rather than relying on her brother to do it as she typically does. Additional win noted as using opposite action to do a few things around the house. Reports feeling proud and accomplished as a result. Client noted current stressor is continuing to look for a job; however, she reports challenging herself not to get too upset with the process and remember to take it in small chunks. Receptive of and appearing to benefit from supportive feedback and suggestions provided by the group. Recommended continued IOP tx to continue to improve mood stability, promote consistency of skill application and thought challenging, as well as prevent decompensation. Narrative Note: []
--- NOTE | 2024-01-09 10:00 | BH.SGPN.GN ---
Behaviors/Verbalizations/Mental Status: [] Eye contact is good. Motor activity is appropriate. Appearance is casual. Speech is Appropriate. Mood is depressed. Affect is congruent. Thoughts are linear and logical. No evidence of psychosis. Client Response/Progress/Benefit: [] Pt participated at times during the group discussions. Attentive during psychoeducation on the 4 communication styles (Passive, Passive-Aggressive, Aggressive, and Assertive) and the obstacles to effective communication. Contributed during interactive discussion on the benefits of communicating effectively. Along with peers participated during interactive discussion in which they identified the benefits and disadvantages to the different communication styles. Benefited from increased understanding of communication styles and how these can impact effective communication. Will continue in IOP to prevent decompensation, maintain safety, increase healthy coping, and improve functioning to return to work. Narrative Note: []
--- NOTE | 2024-01-09 11:05 | BH.SGPN.GN ---
Behaviors/Verbalizations/Mental Status: []Pt alert and oriented, casually dressed. Eye contact good. Motor activity appropriate. Speech within normal limits. Affect congruent, mood dysthymic. Thoughts linear, logical, no signs of hallucinations or delusions. Client Response/Progress/Benefit: [] Pt responded well to session AEB Pt listening attentively to others and providing input during group discussion on the pay offs and costs of the different communication styles. Pt able to connect how current communication style impacts mental health. Connected with peers? comments about importance of using assertive communication. Pt did well being assertive in the group activity and practiced using assertive communication in the role playing scenarios. Pt stated it was helpful to practice being assertive because she mostly connected with using passive communication. ?Pt seemed to benefit from increasing awareness of healthy strategies to improve communication. Will continue IOP tx to increase consistent use of healthy coping skills, challenge negative/distorted thoughts, and prevent decompensation.
--- NOTE | 2024-01-10 09:05 | BH.SGPN.GN ---
Behaviors/Verbalizations/Mental Status: [] Pt alert and oriented, casually dressed and groomed. Eye contact good. Motor activity appropriate. Speech within normal limits. Affect congruent-crying, mood anxious and depressed. Thoughts linear, logical, no signs of hallucinations or delusions. Reviewed pt?s symptom tracker, no risk for suicidal ideation, plan, or intent 01/10/24 Client Response/Progress/Benefit: []Pt responded well to session, attentive and engaged. Pt reports feeling anxious this morning as pt's stressors of unemployment continue to be confusing and up in the air. Pt shared she is trying to stay positive and use her coping skills such as opposite action and engaging in self-care practices. Pt appeared to benefit from receiving supportive statements from peers. Pt will continue IOP tx to increase use of healthy coping skills, improve mood stability, and combat distortions. Narrative Note: []
--- NOTE | 2024-01-10 10:15 | BH.SGPN.GN ---
Behaviors/Verbalizations/Mental Status: [] Eye contact is fair to good. Motor activity is appropriate. Appearance is casual. Speech is Appropriate. Mood is anxious and depressed. Affect is congruent. Thoughts are linear and logical. No evidence of psychosis. Client Response/Progress/Benefit: [] Pt receptive of session, actively engaged throughout AEB taking notes, providing input, and contributing in small group discussion. Appeared to connect with group topic of automatic thoughts and cognitive distortions and the impact of thought patterns on mental health, coping behaviors, and relationships. This particular group is very heavy on psychoeducation and pt appeared to connect with distortions and how they can impact functioning. Identified struggling with All or nothing, Disqualifying the positives, and Catastrophizing distortions. Pt appeared to benefit from gaining insight on distorted thinking patterns and how this impacts overall mental health. Will continue IOP to stabilize mood, improve positive thinking and consistent skill application, and prevent decompensation. Narrative Note: []
--- NOTE | 2024-01-10 11:15 | BH.SGPN.GN ---
Behaviors/Verbalizations/Mental Status: []Pt alert and oriented, casually dressed and groomed. Eye contact good. Motor activity appropriate. Speech within normal limits. Affect constricted, mood dysthymic. Thoughts linear, logical, no signs of hallucinations or delusions Client Response/Progress/Benefit: [] Pt was an active participant during group discussion. Pt was placed in a smaller group and participated in combatting example distortions with peers. Pt was engaged in the smaller group, participated in group interactions to brainstorm answers, and appeared to be comprehending cognitive distortions. Attentive and appeared to connect with psychoeducation about different strategies to reframe/challenge distortions. Engaged in small group practice of challenging cognitive distortion examples. Benefited from gaining further insight and awareness of cognitive distortions as well as practicing ways to reframe and challenge thoughts. Will continue in IOP to improve view of self, increase healthy coping skills, and prevent decompensation.
--- NOTE | 2024-01-10 15:47 | BH.MDN ---
Multi-Disciplinary Note Note 45-min Individual: Time Started:: 12:25 Date: 01/10/24 Purpose of session/treatment goals addressed:: To review progress, combat distortions, and work on pt's maintenance plan. Eye Contact:: Good Motor Activity:: Appropriate Appearance:: Casual Speech:: Appropriate Mood:: Euthymic and Anxious Affect:: Full Thoughts:: Linear, Logical and No evidence of hallucinations/delusions noted Staff Interventions:: thought challenging, motivational interviewing, CBT techniques, mindfulness skills, discharge planning, strengths perspective and goal setting Client Response:: Pt responded well to session, open to meeting with therapist. Pt reports she is getting back to more of her baseline and she still feels anxious about leaving IOP, but she did well challenging these thoughts today. Pt completed her maintenance plan for homework and she identified warning signs, triggers, and coping skills for depression and anxiety. Pt recognized that isolating, not talking with her supports consistently, and not setting daily goals are all warning signs. Pt also worked on self-care strategies in session to help pt maintain gains. Pt's daily self-care included; praying, medications, showering, eating, and cleaning up something small. Pt's weekly self-care included; calling her best friend, therapy, aftercare, and getting out of the house. Pt recognizes that after IOP tx she will still need to work on challenging negative self-talk and her self-reported abandonment issues. Risks/Concerns:: Pt denies any active SI, plan, or intent as of 01/10/24. Progress Toward Goals/Plan:: Pt continues to have external stressors dealing with unemployment, but pt feels she is managing them well. Pt reports she is trying to combat distortions and utilize her healthy coping skills. Pt plans to discharge from IOP tx next week, but she can benefit from one more week of tx to reinforce healthy coping skills and help pt manage stressors. Time Stopped:: 13:15
--- NOTE | 2024-01-11 09:05 | BH.SGPN.GN ---
Behaviors/Verbalizations/Mental Status: [] Eye contact is good. Motor activity is appropriate. Appearance is casual. Speech is Appropriate. Mood is depressed. Affect is congruent. Thoughts are linear and logical. No evidence of psychosis. Reviewed daily check in sheet and pt reports 1/5 for suicidal thoughts and intent. This is baseline and improvement from earlier this week. Client Response/Progress/Benefit: [] Pt was an active participant in group discussion. Attentive. Daily symptom tracker notes 2/5 for depression, anxiety, and self-harm urges. Emotion for today is anxious. I have to be OK with being a little anxious. She is setting small behavioral activation goals on a consistent basis to help decrease isolation, avoidance, and laying in bed all day. Ruminating and stressing on finances and her ability to work again. Struggles to challenge or reframe negative automatic thoughts which leads to overwhelming sadness, crying, and avoidance. This pattern has impacted her IOP attendance as well as he daily functioning. Progress noted. Will continue in IOP to maintain safety, stabilize mood, and increase healthy coping. Narrative Note: []
--- NOTE | 2024-01-11 10:10 | BH.SGPN.GN ---
Behaviors/Verbalizations/Mental Status: []Pt alert and oriented, casually dressed and groomed. Eye contact good. Motor activity appropriate. Speech within normal limits. Affect congruent, mood anxious and depressed. Thoughts linear, logical, no signs of hallucinations or delusions. Client Response/Progress/Benefit: []Pt was an active participant in group discussion and activity. Attentive during psychoeducation. Along with peers, pt was able to identify barriers to taking action in their life. Identified several symptoms and stressors that pt feels are holding them back from progress such as fear of failure, what if thinking, and isolation. Stated these things have kept pt from being excited for the future and causes self-doubt. Pt shared that she wants to begin addressing fear of failure. Benefited from increased self-awareness of obstacles. Will continue IOP tx to promote mood stability, combat distorted thinking patterns, and improve self-confidence. Narrative Note: []
--- NOTE | 2024-01-11 11:10 | BH.SGPN.GN ---
Behaviors/Verbalizations/Mental Status: []Pt alert and oriented, casually dressed and groomed. Eye contact good. Motor activity appropriate. Speech within normal limits. Affect congruent, mood euthymic. Thoughts linear, logical, no signs of hallucinations or delusions. Client Response/Progress/Benefit: [] Pt responded well to session, taking notes and participating in worksheet discussion. Pt connected with the discussion on motion vs action steps, and this helped pt learn how to set goals differently. Pt set a goal to address her fear of failure. Pt identified motion steps including setting a timer, looking on [employer], and listing jobs to apply for. Pt also made action steps which included plans to follow through with applying for jobs, writing a cover letter, and cleaning her bedroom for 15 minutes each night. Appeared to benefit from identifying a small goal to benefit mental health. Will continue IOP tx to promote gains, reinforce healthy coping skills, and combat distorted thinking. Narrative Note: []
--- NOTE | 2024-01-16 09:05 | BH.SGPN.GN ---
Behaviors/Verbalizations/Mental Status: [] Eye contact is good. Motor activity is appropriate. Appearance is casual. Speech is Appropriate. Mood is anxious. Affect is congruent. Thoughts are linear and logical. No evidence of psychosis. Reviewed daily check in sheet and no reports of suicidal ideations or intent. Client Response/Progress/Benefit: [] pt was an active participant in group discussions. Attentive. Emotion for today is ?anxious?. Able to identify mental health wins and healthy habits. Completing daily responsibilities has been beneficial for her mood. Continues to ruminate on her future and finances. Uncertain if she will be able to work FT again due to mental health struggles. Struggles to manage emotions related to this uncertainty which will result in isolation, crying spells, and sleeping to cope. Progress noted. Benefited from group support, encouragement, and feedback. Will continue in IOP to maintain safety, increase healthy coping and improve functioning to return to work. Narrative Note: []
--- NOTE | 2024-01-16 10:10 | BH.SGPN.GN ---
Behaviors/Verbalizations/Mental Status: [] Eye contact is fair. Motor activity is appropriate. Appearance is casual. Speech is Appropriate. Mood is dysthymic. Affect is constricted. Thoughts are linear and logical. No evidence of psychosis. Client Response/Progress/Benefit: [] Client responded well to session AEB sharing and listening attentively to others. Group identified types of social support (family, pets, professionals, spiritual, etc) and provided examples of benefits of having social support, including: decreased stress, increased self-esteem, encouragement, distraction, etc. Client also participated in group discussion regarding the barriers to accessing support such as: lack of awareness, lack of trust, and low self-esteem. Stated she's had negative experiences with supports in the past which makes it challenging to trust others. Client participated in experiential activity illustrating the impact communication, boundaries, and patience play in creating healthy support systems. Client appeared to benefit from increased knowledge of the benefits of social support and greater self-awareness. Will continue IOP to increase consistent use of healthy coping skills, challenge distortions, and prevent decompensation.
--- NOTE | 2024-01-18 09:05 | BH.SGPN.GN ---
Behaviors/Verbalizations/Mental Status: [] Pt alert and oriented, neatly dressed and groomed. Eye contact good. Motor activity appropriate. Speech within normal limits. Affect congruent-tearful, mood anxious and depressed. Thoughts linear, logical, no signs of hallucinations or delusions. Reviewed pt?s symptom tracker, no risk for suicidal ideation, plan, or intent 01/18/24 Client Response/Progress/Benefit: []Pt responded well to session, attentive and engaged. Pt reports feeling tired, nervous, and depressed this morning. Pt had a recent setback when pt found out earlier this week that she will not be getting unemployment benefits. Pt had been stressed about unemployment throughout IOP, but she was under the impression she was going to be getting financial assistance and it did not work out. Pt recognizes that her mood is low, but she was still able to give herself credit for all the things she accomplished in IOP such as getting back into a routine, reaching out to supports, and being more productive at home. Pt understands that she will need to continue with these things when she discharges from IOP today which could be challenging. Pt appeared to benefit from reflecting on her progress and receiving supportive statements. Pt will discharge from IOP tx today as pt has reached her maximum benefit from IOP and will transition to outpatient counseling. Narrative Note: []
--- NOTE | 2024-01-18 10:10 | BH.SGPN.GN ---
Behaviors/Verbalizations/Mental Status: [] Eye contact is good. Alert and oriented. Motor activity is appropriate. Appearance is casual. grooming is appropriate. Speech is Appropriate. Mood is anxious and depressed. Affect is congruent. Thoughts are linear and logical. No evidence of psychosis or hallucinations. Client Response/Progress/Benefit: [] Client was an active participate AEB listening attentively to others, participating in group discussions, and taking notes throughout. Participated as the group identified the impact of emotions on communication such as change in tone, body language, shutting down, misperceiving the communication, and willingness to communicate. Participated with peers to identified reasons why one stuffs emotions which include; to avoid conflict, not draw attention to struggles, being emotional can be perceived as a weakness, and it can make when feel vulnerable.Participated during group activity. Client benefited from session by gaining an increased understanding on the importance of managing emotions to improve daily functioning. Client is set to discharge successfully from [facility] today. Narrative Note: []
--- NOTE | 2024-01-18 10:46 | BH.AFTERPLAN ---
Aftercare Plan Demographics Treatment End Date:: 01/18/24 Psychiatrist:: Aline Rooney Psychiatrist Office #:: [phone] [facility]/IOP Therapist:: Jada Kauffman Therapist Phone #:: [phone] Medications Home Medications hydrocodone 10 mg-acetaminophen 300 mg tablet (Vicodin HP) 1 tab PO Q4H PRN PRN Pain 07/17/15 lisinopril 10 mg tablet 10 mg PO DAILY 07/17/15 paroxetine HCl 30 mg tablet (Paxil) 30 mg PO DAILY 07/17/15 ondansetron 4 mg disintegrating tablet 4 mg PO Q8H PRN PRN Nausea #10 tabs 05/17/18 ciprofloxacin HCl 500 mg tablet 500 mg PO BID #10 tabs 05/20/18 tizanidine 4 mg tablet 4 mg PO BID PRN pain #15 tabs 10/11/19 ondansetron HCl 4 mg tablet 4 mg PO BID 6 days #12 tabs 10/21/22 promethazine 25 mg tablet 25 mg PO Q8H PRN PRN nausea and vomiting #14 tabs 10/21/22 clonazepam 0.5 mg tablet (Klonopin) 0.5 mg PO DAILY 11/22/23 dulaglutide 1.5 mg/0.5 mL subcutaneous pen injector (Trulicity) 1.5 mg subcut QWEEK 11/22/23 insulin glargine 100 unit/mL subcutaneous solution (Lantus U-100 Insulin) 32 unit subcut DAILY 11/22/23 insulin lispro 100 unit/mL subcutaneous cartridge (Humalog U-100 Insulin) 19 unit subcut TID 11/22/23 omeprazole 20 mg capsule,delayed release 20 mg PO DAILY 11/22/23 paroxetine HCl 40 mg tablet (Paxil) 40 mg PO DAILY 11/22/23 trazodone 50 mg tablet 50 mg PO QHS PRN insomnia 11/22/23 bupropion HCl 150 mg 24 hr tablet, extended release (Wellbutrin XL) 150 mg PO DAILY 30 days #30 tabs 01/03/24 Plan Details Progress/Aftercare Plan Details:: Julia has responded well to treatment as evidenced by Julia consistently attending IOP sessions and her consistent engagement. Julia was always attentive and receptive to learning during group and individual sessions. Julia actively applied coping skills outside of IOP and reports overall her mood is improved and she is functioning better than she was several months ago. Julia has had numerous stressors going on outside of IOP including unemployment and trying to find a part-time job. Despite these stressors, Julia continued to show up and put effort in to managing her mental health and improving her functioning. Strategies for Success:: 1. Opposite action! Continue to break that cycle of anxiety, guilt, and depression by not letting emotions be the only drivers of your bus. 2. Remember that thoughts are thoughts NOT facts! You have power in if you give thoughts the time of day or not. 3. self-care! You deserve to take time for you and you also deserve to face the not so fun self-care like setting boundaries and advocating for your needs 4. Self-compassion! You are human and you will make a mistake?BUT that doesn?t mean you are a failure or not good enough. Give yourself credit for all the wonderful things you do. 5. Continue to practice acceptance and remember acceptance means loving this version of you 6. Practice positive self-talk and keep track of your wins. 7. Remember progress isn?t linear! You may have a setback or bump in the road, but that doesn?t mean you?ve lost all progress. 8. self-reflection and self-awareness. 9. Be understanding with yourself and try to see the whole picture, not just the snapshot. 10. Live in the damon!! Appointments Appointments/Referrals to Other Services:: 1. IOP aftercare starting 01/25/24 from 2:00-3:30pm. 2. Follow up with Dat 3. Dr. Reyna for medication management.
--- NOTE | 2024-01-18 13:23 | BH.DS ---
Discharge Summary Demographics Date of Admission:: 11/21/23 Discharge Date: 01/18/24 Presenting Problems at Admission:: Pt is a 58-year-old female with a history of MDD,CHERYL, and Panic Disorder who was referred to [facility] tx by her outpatient therapist due to worsening depression and anxiety since June 2023. Pt currently endorses a depressed mood with crying spells, isolation, hopelessness, worthlessness, passive SI, and negative thinking patterns. Pt's mental health symptoms led to pt getting let go from her job and have been impacting her ability to complete ADLs. Pt also endorses severe anxiety with panic attacks and avoidance. Discharge Diagnoses:: Major depressive disorder, recurrent, severe without psychosis F 33.2; Panic disorder; Generalized anxiety disorder Reason for Discharge:: Pt's DSM-5 symptoms did not decrease (see below) but pt self-reported accomplishing her other tx goals AEB pt's report of improved functioning and use of healthy coping skills. Pt has received maximum benefit from IOP and will discharge to traditional outpatient counseling and IOP aftercare. Treatment Progress During Treatment & Response: Pt has responded well to treatment as evidenced by Pt consistently attending IOP sessions and her consistent engagement. Pt was always attentive and receptive to learning during group and individual sessions. Pt has had numerous stressors going on outside of IOP including unemployment and trying to find a part-time job. Pt?s DSM-5 scores did not decrease, but this is due to the external stressor of unemployment per pt?s report. Pt self-reported that her DSM-5 scores would have ?gone down a lot if I didn?t hear about unemployment.? Pt actively applied coping skills outside of IOP and reports overall her mood is improved and she is functioning better than she was several months ago. Despite these stressors, Pt continued to show up and put effort in to managing her mental health and improving her functioning. Pt also reported increase ability to challenge her perspective and reach out for help. Issues Still to be Addressed:: Prior to discharge pt found out she was not accepted for unemployment benefits and this significantly impacted pt's mental health. Pt can continue to work with her outpatient counselor on managing negative thought patterns, setting goals, and practicing healthy coping skills pt learned in IOP. Pt can also benefit from increasing her support network and getting back into volunteering that she did in the past. Discharge Recommendations/Instructions:: Pt is recommended to follow up with her outpatient providers for continuity of care and to help pt cope with the ongoing stressors of finding employment. Pt has an appointment with [facility] at [facility] [address] on 02/02/24 for individual counseling. Pt also sees Dr. Chong for medication management at [facility] on 02/14/24. Pt will begin IOP aftercare on 01/25/24. Discharge Handout
--- NOTE | 2024-01-18 13:23 | BH.MDN ---
Multi-Disciplinary Note Note 45-min Individual: Time Started:: 11:15 Date: 01/18/24 Purpose of session/treatment goals addressed:: Pt process recent trigger, provide emotional support, and assess suicidality. Eye Contact:: Fair Motor Activity:: Appropriate Appearance:: Disheveled Speech:: Soft Mood:: Anxious and Depressed Affect:: Congruent (tearful) Thoughts:: Racing and No evidence of hallucinations/delusions noted Staff Interventions:: thought challenging, CBT techniques, mindfulness skills, discharge planning and strengths perspective Client Response:: Pt responded well to session, open to meeting with therapist. Pt was tearful and shared she is struggling since hearing about unemployment. Since starting IOP, pt has been managing the stress of filing for unemployment, talking with representatives, and getting paperwork to help pt get her unemployment benefits. Pt then suddenly found out she does not qualify after being told that she would. This happened earlier this week, the week of her IOP discharge. Pt shared that if she would not have gotten this news, she would be in a much better place. However, pt is having a hard time right now challenging negative thoughts and being optimistic. Pt responded well to calming skills to help ground pt and this reduced her crying. Pt and therapist challenged distortions and pt was encouraged to practice affirmations. Pt also reminded of the skills and supports she can turn to to prevent further decompensation. Pt plans to reach out to her two best friends today. Pt reported benefitting from verbally processing her stressors and gaining emotional support. Pt encouraged to follow through with [facility] aftercare and individual therapy with [facility] at [facility]. Risks/Concerns:: Pt reports having urges to self-harm and thoughts of , but pt denies any active SI. Denies any plan or intent. Pt reports she would not hurt herself or kill herself because of what it would do to her brother. Progress Toward Goals/Plan:: Pt had been making significant progress towards her tx goals AEB pt's consistent attendance and pt's self-report of improving mood and functioning. However, pt received notice this week that she was denied unemployment benefits which pt had been working hard to obtain since beginning IOP eight weeks ago. This was completely unexpected and triggered significant panic and depression. Pt acknowledges that she has received maximum benefit from IOP as pt has completed more than six weeks of tx and pt plans to still discharge from [facility] today. Pt has outpatient counseling and IOP aftercare group for continuity of care. Pt's financial stressors are ongoing, but pt feels she has some support to help pt get through this difficult time. Time Stopped:: 12:00
== END 2024-01-18 13:00 | disposition home or self-care (01) ==
LOC: BHIOP 08:10
PROVIDERS: PCP Family Medicine; Referring Provider Psychiatry & Neurology Psychiatry; Visit Provider Psychiatry & Neurology Psychiatry
DX: F33.2 Major depressive disorder, recurrent severe without psychotic features (principal); F41.0 Panic disorder [episodic paroxysmal anxiety]; F41.9 Anxiety disorder, unspecified; Z79.899 Other long term (current) drug therapy
CPT/HCPCS: H2012; H2020; S9480; 90834

== ENCOUNTER 2024-02-17 14:18 | Inpatient (IN) | payer MEDICAID, SELFPAY ==
[2024-02-17] VITALS (7 sets, daily range): BP systolic 94–138; BP diastolic 57–83; PULSE 80–114; RESP 16–18; TEMP 36.2–36.6; O2SAT 95–100; BMI 42.0
--- NOTE | 2024-02-17 14:40 | EKG12_ITS ---
Test Reason : GENERAL Blood Pressure : / mmHG Vent. Rate : 106 BPM Atrial Rate : 106 BPM P-R Int : 130 ms QRS Dur : 072 ms QT Int : 408 ms P-R-T Axes : 038 047 052 degrees QTc Int : 541 ms Sinus tachycardia Possible Inferior infarct (cited on or before 24-SEP-2015) Anterolateral infarct , age undetermined Abnormal ECG Confirmed by CHARLOTTE PADILLA, DORIS ([id number]), international editorial producer EDOUARD LAZCANO ([id number]) on 02/21/2024 9:43:19 AM Referred By: Confirmed By:LUL PORTER MD
[2024-02-17] MEDS: 0.9% Normal Saline (1000mL) 1,000 ML 1000 ML IV (14:52)
--- NOTE | 2024-02-17 15:01 | EX.ED.DYSGE1 ---
HPI History of Present Illness Chief Complaint: Abd Pain Informant: patient Onset/Context/Timing Onset: Weeks Narrative Narrative: Patient presents with a 2-week history of abdominal cramping, nausea, vomiting, and diarrhea. She states her diarrhea seems to be improving, however she continues to have nausea and vomiting with her last episode about 3 hours prior to arrival. She states she has not been able to keep her medications down for the past 2 weeks. She feels weak and dizzy. She describes her dizziness as her limbs and extremities getting weak with exertion causing her to fall. She denies any spinning or vertiginous symptoms. [facility] Medical History Generalized anxiety disorder Panic disorder Major depressive disorder, recurrent severe without psychotic features Home Medications ?Medication ?Instructions ?Recorded ?Last Taken ?Type hydrocodone 10 mg-acetaminophen 1 tab PO Q4H PRN PRN Pain 07/17/15 Unknown History 300 mg tablet (Vicodin HP) lisinopril 10 mg tablet 10 mg PO DAILY 07/17/15 Unknown History paroxetine HCl 30 mg tablet (Paxil) 30 mg PO DAILY 07/17/15 Unknown History ondansetron 4 mg disintegrating 4 mg PO Q8H PRN PRN Nausea #10 tabs 05/17/18 Unknown Rx tablet ciprofloxacin HCl 500 mg tablet 500 mg PO BID #10 tabs 05/20/18 Unknown Rx tizanidine 4 mg tablet 4 mg PO BID PRN pain #15 tabs 10/11/19 Unknown Rx ondansetron HCl 4 mg tablet 4 mg PO BID 6 days #12 tabs 10/21/22 Unknown Rx promethazine 25 mg tablet 25 mg PO Q8H PRN PRN nausea and 10/21/22 Unknown Rx vomiting #14 tabs clonazepam 0.5 mg tablet (Klonopin) 0.5 mg PO DAILY 11/22/23 Unknown History dulaglutide 1.5 mg/0.5 mL 1.5 mg subcut QWEEK 11/22/23 Unknown History subcutaneous pen injector (Trulicity) insulin glargine 100 unit/mL 32 unit subcut DAILY 11/22/23 Unknown History subcutaneous solution (Lantus U-100 Insulin) insulin lispro 100 unit/mL 19 unit subcut TID 11/22/23 Unknown History subcutaneous cartridge (Humalog U-100 Insulin) omeprazole 20 mg capsule,delayed 20 mg PO DAILY 11/22/23 Unknown History release paroxetine HCl 40 mg tablet (Paxil) 40 mg PO DAILY 11/22/23 Unknown History trazodone 50 mg tablet 50 mg PO QHS PRN insomnia 11/22/23 Unknown History bupropion HCl 150 mg 24 hr tablet, 150 mg PO DAILY 30 days #30 tabs 01/03/24 Unknown Rx extended release (Wellbutrin XL) Allergy/AdvReac Type Severity Reaction Status Date / Time Penicillins Allergy Rash Verified 02/17/24 14:19 erythromycin base AdvReac Nausea Verified 02/17/24 14:19 metformin AdvReac Diarrhea Verified 02/17/24 14:19 Social History Smoking Status: Never smoker ROS ROS ED Constitutional Constitutional ED: Denies chills or fever(s) Eyes Eyes: Denies discharge from eye(s) ENT ENT ED: Denies discharge from eye(s), rhinorrhea or sore throat Cardiovascular Cardiovascular: Denies chest pain or palpitations Respiratory/Chest Respiratory/Chest: Denies cough or dyspnea Gastrointestinal Gastrointestinal: Reports abdominal pain, diarrhea, nausea and vomiting Genitourinary Genitourinary ED: Denies dysuria Musculoskeletal Musculoskeletal: Denies back pain or extremity pain Integumentary Denies Abrasions or rash Neurologic Neurologic: Reports weakness; Denies headache(s) Psychiatric Psychiatric: Denies anxiety or depression Allergic/Immunologic Allergic/Immunologic ED: Denies lip swelling or urticaria EXAM Physical Exam Const Vital Signs: 02/17/24 14:19 02/17/24 16:19 Temperature 97.1 F L Temperature Source Oral Pulse Rate 114 H 94 Respiratory Rate 16 18 Blood Pressure 109/57 L 120/82 H Blood Pressure Mean 74 94 Pulse Ox 98 95 Oxygen Delivery Method Room Air Positive well nourished and well developed General Appearance ED: well developed HEENT Reports moist mucous membranes Eyes EOMs intact bilaterally Chest Wall inspection of chest normal and palpation of chest normal Resp normal respiratory effort and clear to auscultation bilaterally Cardio regular rhythm Rate: tachycardic GI GI Narrative: Abdomen soft with mild upper abdominal tenderness. No guarding or rebound. No palpable masses. Active bowel sounds are noted. Extremity normal to inspection Neuro oriented x3 and no sensory deficits noted Motor Exam: strength 5/5 throughout Psych mental status grossly normal Skin no rashes or lesions noted MDM MDM MDM Narrative Medical decision making narrative: IV line established. Patient given IV fluids along with Bentyl and Phenergan. EKG obtained to evaluate for cardiac arrhythmia/ischemia. Labwork obtained to evaluate for leukocytosis, anemia, and electrolyte derangement. Urinalysis obtained to evaluate for infection/hematuria. History & Record Review Discussion w/independent historian: Patient Lab Data Attestation: I reviewed the patient's lab results. Labs: Laboratory Results - last 24 hr 02/17/24 02/17/24 13:50 15:57 WBC 13.1 H RBC 7.05 H Hgb 18.4 H* Hct 56.8 H MCV 80.6 L MCH 26.1 L MCHC 32.4 RDW Std Deviation 42.0 RDW Coeff of Kelby 16.2 H Plt Count 414 MPV 11.2 Immature Gran % (Auto) 0.800 Neut % (Auto) 85.5 H Lymph % (Auto) 8.7 L [place] % (Auto) 4.3 Eos % (Auto) 0.2 Baso % (Auto) 0.5 Absolute Neuts (auto) 11.2 H Absolute Lymphs (auto) 1.14 Nucleated RBC % 0 Diff Path Review May foll Platelet Estimate SLT INC Plt Morphology Comment LARGE RBC Morphology N CHROM Anisocytosis RARE Microcytosis RARE Sodium 135 L Potassium 3.7 Chloride 104 Carbon Dioxide 18.0 L Anion Gap 13 BUN 34 H Creatinine 2.41 H Est GFR (MDRD) Af Amer 27 L Est GFR (MDRD) Non-Af 22 L BUN/Creatinine Ratio 14.1 Glucose 282 H Calcium 9.3 Total Bilirubin 0.50 Direct Bilirubin 0.17 AST 11 L ALT 12 L Alkaline Phosphatase 117 Total Protein 7.3 Albumin 3.4 Globulin 3.9 Lipase 89 H Urine Color Yellow Urine Clarity Clear Urine pH 5.0 Ur Specific [place] 1.025 Urine Protein 30 H Urine Glucose (UA) Normal Urine Ketones 5 H Urine Occult Blood 10 H Urine Nitrite Positive H Urine Bilirubin 3 H Urine Urobilinogen 8 H Ur Leukocyte Esterase 25 H Urine RBC 0-5 SEEN Urine WBC 0-5 SEEN Ur Squamous Epith Cells 0-5 SEEN Urine Bacteria 1+ Urine Mucus 0 SEEN EKG Initial EKG: Attestation: I personally reviewed and interpreted this EKG as follows: Interpretation: Sinus Tachycardia (Sinus tachycardia at 106. No acute ST change.) Treatment and Re-Evaluation :: CBC was elevated white count of 13.1 with 85% neutrophils. Hemoglobin is concentrated 18.4. Chemistry studies reveal normal potassium at 3.7. BUN is 34 and creatinine is 2.41. Patient was seen here in October and had a creatinine 1.74, however she was being seen for dehydration at that time. It appears her creatinine had been running around 1.5 prior to this. Her glucose is elevated at 282. Her LFTs are unremarkable and lipase only mildly elevated at 89. Urinalysis is positive for nitrites with 1+ bacteria. EKG is sinus tachycardia at 106 with no evidence of acute ischemia. On repeat evaluation she is able to tolerate some p.o. fluids. She was given a dose of IV Rocephin and her urine was sent for culture. I do feel she will require hospitalization for hydration given her acute kidney injury. I will speak with the hospitalist. Discharge Plan Triage Chief Complaint: Abd Pain ED Provider: Ne Javier Dx/Rx/DC Orders Clinical Impression: Dehydration, ADA (acute kidney injury), UTI (urinary tract infection), Weakness Prescriptions: No Action lisinopril 10 MG tablet 10 mg PO DAILY paroxetine HCl [Paxil] 30 MG tablet 30 mg PO DAILY hydrocodone-acetaminophen [Vicodin HP] 1 EACH tablet 1 tab PO Q4H PRN PRN (Reason: Pain) ondansetron 4 MG tablet 4 mg PO Q8H PRN PRN (Reason: Nausea) Qty: 10 0RF ciprofloxacin HCl 500 MG tablet 500 mg PO BID Qty: 10 0RF tizanidine 4 MG tablet 4 mg PO BID PRN (Reason: pain) Qty: 15 0RF ondansetron HCl 4 mg tablet 4 mg PO BID 6 Days Qty: 12 0RF promethazine 25 mg tablet 25 mg PO Q8H PRN PRN (Reason: nausea and vomiting) Qty: 14 0RF paroxetine HCl [Paxil] 40 mg tablet 40 mg PO DAILY clonazepam [Klonopin] 0.5 mg tablet 0.5 mg PO DAILY trazodone 50 mg tablet 50 mg PO QHS PRN (Reason: insomnia) omeprazole 20 mg capsule,delayed release(DR/EC) 20 mg PO DAILY Trulicity 1.5 mg/0.5 mL pen injector 1.5 mg subcut QWEEK insulin glargine [Lantus U-100 Insulin] 100 unit/mL solution 32 unit subcut DAILY Humalog U-100 Insulin 100 unit/mL cartridge 19 unit subcut TID Rx Instructions: with meals bupropion HCl [Wellbutrin XL] 150 mg tablet extended release 24 hr 150 mg PO DAILY 30 Days Qty: 30 1RF Rx Instructions: 1 po every morning Primary Care Provider: Roc Duque Referrals: Roc Duque MD [Primary Care Provider] - Print Language: Mauritanian Disposition Disposition: Acute Care Hospital [facility]
[2024-02-17 15:09] LABS: Absolute Lymphocyte Count 1.14 X10^3/uL (0.83-4.51); Absolute Neutrophil Count 11.2 X10^3/uL (2.0-7.7); Basophil# 0.07 X10^3/uL; Basophil% 0.5 % (0-1); Eosinophil# 0.03 X10^3/uL; Eosinophils% 0.2 % (0-5); Lymphocyte # 1.14 X10^3/ul (0.83-4.51); Lymphocyte % 8.7 % (19-41); Mean Corp Hgb Conc 32.4 g/dL (32-36); Mean Corpuscular Hgb 26.1 pg (27.0-32.0); Mean Corpuscular Volume 80.6 fL (81-99); Mean Platelet Vol. 11.2 fl (6.2-12.0); Monocyte# 0.56 X10^3/uL; Monocyte% 4.3 % (0-10); NRBC Flagged by Analyzer 0 % (0-5); Neutrophil # 11.15 X10^3/uL (2.7-7.7); Neutrophil % 85.5 % (47-70); Platelet Count 414 K/mm3 (150-450); RBC Distribution Width CV 16.2 % (11.6-14.6); Red Blood Count 7.05 M/mm3 (4.2-5.4); White Blood Count 13.1 K/mm3 (4.4-11.0)
[2024-02-17] MEDS: Dicyclomine 20 MG/2 ML Vial IM (15:12)
[2024-02-17] MEDS: proMETHazine 25 MG/ML Syringe 12.5 MG IM (15:12)
[2024-02-17 15:15] LABS: Hematocrit 56.8 % (37-47)
[2024-02-17 15:16] LABS: AST(SGOT) 11 U/L (15-37); Alanine Aminotransfer ALT/SGPT 12 U/L (13-56); Albumin, Serum 3.4 g/dL (3.2-5.0); Alkaline Phosphatase 117 U/L (45-117); Anion Gap 13 (5-15); BUN 34 mg/dL (7-18); BUN/Creat Ratio 14.1 RATIO (10-20); Bilirubin, Direct 0.17 mg/dL (0.00-0.30); Calcium,Total 9.3 mg/dL (8.5-10.1); Chloride 104 mmol/L (98-107); Creatinine, Serum 2.41 mg/dL (0.55-1.02); EST Glomerular Filtration Rate 22 mL/min (>60); Est Glom Filt Rate - Afr Amer 27 mL/min (>60); Globulin 3.9 g/dL (2.2-4.2); Glucose 282 mg/dL (74-106); Lipase 89 U/L (13-75); Potassium 3.7 mmol/L (3.5-5.1); Protein, Total 7.3 g/dL (6.4-8.2); Sodium Level 135 mmol/L (136-145)
[2024-02-17 15:18] LABS: Hemoglobin 18.4 g/dL (12.0-15.0)
[2024-02-17 15:53] LABS: Anisocytosis RARE; Microcytosis RARE; Platelet Estimate SLT INC (ADEQ); Platelet Morphology LARGE; Red Cell Morphology N CHROM NORMAL (NORM C&C)
[2024-02-17 16:02] LABS: Mucous, Urine 0 SEEN /hpf (<or=2+)
[2024-02-17] MEDS: 0.9% Normal Saline (1000mL) 1,000 ML 150 ML IV ×3 (16:10→18:49)
[2024-02-17 16:11] LABS: Color, Urine Yellow (Yellow); Glucose, Dipstick Normal (Normal); Ketone-Dipstick 5 mg/dl (Negative); Leukocyte Esterase-Dipstick 25 /ul (Negative); Nitrite-Dipstick Positive (Negative); Occult Blood-Urine 10 /ul (Negative); Protein-Dipstick 30 mg/dl (Negative); Specific Gravity, Urine 1.025 (1.002-1.030); Urine Clarity Clear (Clear); Urine Urobilinogen 8 mg/dl (Normal)
[2024-02-17 16:26] LABS: Urine Bilirubin Dipstick 3 mg/dL (Negative)
[2024-02-17 16:27] LABS: Bacteria 1+ /hpf (None Seen); Red Blood Cells-Urine 0-5 SEEN /hpf (0-5); Squamous Epithelial Cells - UA 0-5 SEEN /hpf (5-10); White Blood Cells 0-5 SEEN /hpf (0-5)
[2024-02-17] MEDS: Ceftriaxone 1 GM/50 ML BAG IV (16:40)
--- NOTE | 2024-02-17 17:08 | NURSING ---
MED SURG KITTOE ADA, DEHYDRATION, UTI
--- NOTE | 2024-02-17 17:15 | HP.PCM.HOS_ITS ---
HPI - General General Date of Admission: 02/17/24 Date of Service: 02/17/24 Chief Complaint: Generalized weakness HPI Narrative THANG SHIPLEY, is a 58-year-old with past medical history single for diabetes mellitus type 2 essential hypertension GERD who presented with a 2-week history of nausea and vomiting with associated abdominal pain and diarrhea. Per patient she elected to present to the emergency department after experiencing profound generalized weakness on the morning of her admission. She states that she could hardly ambulate. Her diarrhea had apparently subsided at the time she made the decision to present to the emergency department. Workup in the emergency department did reveal acute kidney injury with mild cystitis. Started on IV fluids and antibiotic therapy admitted to regular nursing floor for further management [facility] Medical History Generalized anxiety disorder Panic disorder Major depressive disorder, recurrent severe without psychotic features Home Medications ?Medication ?Instructions ?Recorded ?Last Taken ?Type lisinopril 10 mg tablet 10 mg PO DAILY 07/17/15 Unknown History tizanidine 4 mg tablet 4 mg PO BID PRN pain #15 tabs 10/11/19 Unknown Rx clonazepam 0.5 mg tablet (Klonopin) 0.5 mg PO BID 11/22/23 Unknown History dulaglutide 1.5 mg/0.5 mL 1.5 mg subcut QWEEK 11/22/23 Unknown History subcutaneous pen injector (Trulicity) insulin glargine 100 unit/mL 15 unit subcut TID 11/22/23 Unknown History subcutaneous solution (Lantus U-100 Insulin) insulin lispro 100 unit/mL 18 unit subcut TID 11/22/23 Unknown History subcutaneous cartridge (Humalog U-100 Insulin) omeprazole 20 mg capsule,delayed 20 mg PO DAILY 11/22/23 Unknown History release paroxetine HCl 40 mg tablet (Paxil) 40 mg PO DAILY 11/22/23 Unknown History trazodone 50 mg tablet 50 mg PO QHS PRN insomnia 11/22/23 Unknown History bupropion HCl 150 mg 24 hr tablet, 150 mg PO DAILY 30 days #30 tabs 01/03/24 Unknown Rx extended release (Wellbutrin XL) amlodipine 2.5 mg tablet 2.5 mg PO DAILY 02/17/24 Unknown History ciprofloxacin HCl 500 mg tablet 500 mg PO DAILY 02/17/24 Unknown History metoclopramide HCl 5 mg tablet 5 mg PO 4X/DAY 02/17/24 Unknown History Allergy/AdvReac Type Severity Reaction Status Date / Time Penicillins Allergy Rash Verified 02/17/24 14:19 erythromycin base AdvReac Nausea Verified 02/17/24 14:19 metformin AdvReac Diarrhea Verified 02/17/24 14:19 Social History Smoking Status: Never smoker ROS ROS Narrative GENERAL: denies fever, chills, night sweats, HEENT: denies headache, sinus congestion, RESPIRATORY: denies cough, sputum production, CARDIAC: denies chest pain, palpitations, orthopnea, GASTROINTESTINAL: dabdominal pain, nausea, GENITOURINARY: denies dysuria, urgency, frequency, EXTREMITY: denies swelling MUSCULOSKELETAL: denies current joint pain or tenderness NEUROLOGIC: denies focal numbness, weakness, tingling HEMATOLOGIC: denies easy bruising and/or hemorrhage INTEGUMENT: denies rashes PSYCHIATRIC: denies suicidal or homicidal ideation Vital Signs Vital Signs Vital Signs: 02/17/24 14:19 02/17/24 16:19 Temperature 97.1 F L Temperature Source Oral Pulse Rate 114 H 94 Respiratory Rate 16 18 Blood Pressure 109/57 L 120/82 H Blood Pressure Mean 74 94 Pulse Ox 98 95 Oxygen Delivery Method Room Air Physical Exam Narrative GENERAL: cooperative HEENT: Atraumatic; normocephalic EYES; Anicteric, Normal Conjunctiva NECK; supple, normal thyroid, RESPIRATORY: Diminished to auscultation CARDIOVASCULAR: Regular S1 S2, GI: soft, normoactive bowel sounds, : No Renal angle tenderness; EXTREMITIES: No edema, no clubbing, MUSCULOSKELETAL: no muscle wasting NEURO: Awake; no lateralizing signs. SKIN: No Rash PSYCH; Flat affect Results Lab / Micro Data 02/17/24 13:50 02/17/24 13:50 Labs: Laboratory Results - last 24 hr 02/17/24 13:50: WBC 13.1 H, RBC 7.05 H, Hgb 18.4 H*, Hct 56.8 H, MCV 80.6 L, MCH 26.1 L, MCHC 32.4, RDW Std Deviation 42.0, RDW Coeff of Kelby 16.2 H, Plt Count 414, MPV 11.2, Immature Gran % (Auto) 0.800, Neut % (Auto) 85.5 H, Lymph % (Auto) 8.7 L, [place] % (Auto) 4.3, Eos % (Auto) 0.2, Baso % (Auto) 0.5, Absolute Neuts (auto) 11.2 H, Absolute Lymphs (auto) 1.14, Nucleated RBC % 0, Diff Path Review May foll, Platelet Estimate SLT INC, Plt Morphology Comment LARGE, RBC Morphology N CHROM, Anisocytosis RARE, Microcytosis RARE, Sodium 135 L, Potassium 3.7, Chloride 104, Carbon Dioxide 18.0 L, Anion Gap 13, BUN 34 H, C reatinine 2.41 H, Est GFR (MDRD) Af Amer 27 L, Est GFR (MDRD) Non-Af 22 L, BUN/Creatinine Ratio 14.1, Glucose 282 H, Calcium 9.3, Total Bilirubin 0.50, Direct Bilirubin 0.17, AST 11 L, ALT 12 L, Alkaline Phosphatase 117, Total Protein 7.3, Albumin 3.4, Globulin 3.9, Lipase 89 H 02/17/24 15:57: Urine Color Yellow, Urine Clarity Clear, Urine pH 5.0, Ur Specific [place] 1.025, Urine Protein 30 H, Urine Glucose (UA) Normal, Urine Ketones 5 H, Urine Occult Blood 10 H, Urine Nitrite Positive H, Urine Bilirubin 3 H, Urine Urobilinogen 8 H, Ur Leukocyte Esterase 25 H, Urine RBC 0-5 SEEN, Urine WBC 0-5 SEEN, Ur Squamous Epith Cells 0-5 SEEN, Urine Bacteria 1+, Urine Mucus 0 SEEN Assessment & Plan Assessment/Plan (1) ADA (acute kidney injury): PLAN: Plan Patient is a 58-year-old lady presented with progressive generalized weakness with associated nausea vomiting and abdominal pain preceded by diarrhea 1. Acute kidney injury ? Secondary to severe dehydration from significant fluid losses from patient gastroenteritis. Patient has been admitted to regular nursing floor started on IV fluids. Response to therapy being monitored with daily BMPs. Also ordered renal ultrasound for subsequently 2. Acute cystitis ? Patient only symptoms was lower abdominal pain she denied dysuria urinalysis however did reveal positive nitrites and leukocyte Estrace. Patient was started on ceftriaxone from the emergency department did continue pending receipt of culture result 3. Gastroenteritis ? Possibly viral since resolved 4. Diabetes mellitus type II -Patient is on long-acting insulin plan is to resume following med reconciliation. She was also placed on Accu-Cheks a.c. and at bedtime and covered with sliding scale insulin 5. Hypertension - Blood pressure controlled, patient is on lisinopril held given her impaired kidney function 6. GERD ? On PPI 7. Depression with anxiety ? Patient is on Paxil plan is to resume home meds once reconciled 8. Polycythemia ? Possibly as a result of severe dehydration. Patient started on IV fluids. Ordered CBC with differential in a.m. for follow-up 9. DVT prophylaxis ? SC heparin Time spent in the patient's overall evaluation,decision-making process, review of diagnostic data, adjustment of management, discussion with other providers, nursing nursing and ancillary staff involved in patient's care documentation, 75 Minutes Advance planning; did discuss with the patient regarding advanced directives as well as CODE STATUS. Did explain the various scenarios involved ( FULL CODE, DNR CCA, DNR CCA with no intubation, and DNR CC and what each meant) patient elected to remain full code with CPR and intubation if needed. Order was placed. Time spent on discussion 16 minutes. Charges/Coding Multi Select Codes Visit Charges Visit Charges: 96798 Init Hosp L3 Hospitalists' Procedures Procedures: 90753 Advncd Care Plan 30 Min
[2024-02-17] MEDS: 0.9% Normal Saline (1000mL) 1,000 ML 999 ML IV ×3 (18:51→20:52)
--- NOTE | 2024-02-17 18:55 | SEPSISATNOTE ---
Sepsis Attestation Sepsis Attestation: Agree w/Sepsis Date exam was performed: 02/17/24 Time exam was performed: 18:00 Possible Source of Sepsis: Genitourinary Sepsis Organ Dysfunction Criteria Present: SBP < 90 mmHg or MAP < 65 mmHg, Creatinine > 2.0 mg/dL and Lactic Acid > 2 mmol/L Fluid Resuscitation Fluid resuscitation indicated?: Yes Fluid Resuscitation ordered: 30 ml/kg fluid bolus ordered
[2024-02-17 20:37] LABS: Lactic Acid 3.6 mmol/L (0.4-1.9)
--- NOTE | 2024-02-17 20:43 | NURSING ---
Lab called about lactic acid 3.6. Made primary nurse aware.
[2024-02-17] MEDS: Nystatin Powder 15gm Bottle 1 APPLIC TOPICAL (20:54)
[2024-02-17] MEDS: Metoclopramide 5 MG TABLET PO (20:54)
[2024-02-17] MEDS: Insulin Lispro 100 UNIT/ML INSULN.PEN SC (21:03)
[2024-02-17] MEDS: Heparin Injection (Vial) 5,000 UNIT/ML VIAL 5000 UNIT SC (21:03)
[2024-02-17] MEDS: Insulin Glargine-YFGN 100 UNIT/ML Pen 15 UNIT SC (21:04)
[2024-02-17] MEDS: clonazePAM 0.5 MG Tablet PO (21:04)
[2024-02-17 22:25] LABS: Bedside Glucose 203 mg/dL (74-106)
[2024-02-17 23:43] LABS: Reflex Lactate? Y
[2024-02-18 01:58] LABS: Lactic Acid 1.4 mmol/L (0.4-1.9)
[2024-02-18 03:01] VITALS: BP 118/66; PULSE 76; RESP 18; TEMP 36.7; O2SAT 96
[2024-02-18] MEDS: 0.9% Normal Saline (1000mL) 1,000 ML 150 ML IV (03:52)
[2024-02-18 07:08] LABS: Bedside Glucose 105 mg/dL (74-106)
[2024-02-18 07:30] LABS: Absolute Lymphocyte Count 1.99 X10^3/uL (0.83-4.51); Absolute Neutrophil Count 5.1 X10^3/uL (2.0-7.7); Basophil# 0.04 X10^3/uL; Basophil% 0.5 % (0-1); Eosinophil# 0.07 X10^3/uL; Eosinophils% 0.9 % (0-5); Hematocrit 38.2 % (37-47); Hemoglobin 12.5 g/dL (12.0-15.0); Lymphocyte # 1.99 X10^3/ul (0.83-4.51); Lymphocyte % 25.6 % (19-41); Mean Corp Hgb Conc 32.7 g/dL (32-36); Mean Corpuscular Hgb 26.4 pg (27.0-32.0); Mean Corpuscular Volume 80.6 fL (81-99); Mean Platelet Vol. 11.9 fl (6.2-12.0); Monocyte# 0.57 X10^3/uL; Monocyte% 7.3 % (0-10); NRBC Flagged by Analyzer 0 % (0-5); Neutrophil # 5.06 X10^3/uL (2.7-7.7); Neutrophil % 65.2 % (47-70); Platelet Count 249 K/mm3 (150-450); RBC Distribution Width CV 14.6 % (11.6-14.6); RBC Distribution Width SD 42.9 fl (35.1-43.9); Red Blood Count 4.74 M/mm3 (4.2-5.4); White Blood Count 7.8 K/mm3 (4.4-11.0)
[2024-02-18] MEDS: Pantoprazole Sodium 40 MG Tablet PO (07:37)
[2024-02-18] MEDS: Heparin Injection (Vial) 5,000 UNIT/ML VIAL 5000 UNIT SC ×2 (07:37→21:49)
[2024-02-18] MEDS: Glucerna Shake 120 ML LIQUID PO ×3 (07:37→15:58)
[2024-02-18] MEDS: Paroxetine 20 MG Tablet 40 MG PO (07:38)
[2024-02-18] MEDS: buPROPion (XL) 150 MG TABLET.XL PO (07:38)
[2024-02-18] MEDS: Metoclopramide 5 MG TABLET PO ×4 (07:38→21:50)
[2024-02-18] MEDS: Nystatin Powder 15gm Bottle 1 APPLIC TOPICAL ×2 (07:40→21:50)
[2024-02-18] MEDS: clonazePAM 0.5 MG Tablet PO ×2 (07:40→21:49)
[2024-02-18 08:06] LABS: Anion Gap 9 (5-15); BUN 32 mg/dL (7-18); BUN/Creat Ratio 16.8 RATIO (10-20); Calcium,Total 7.8 mg/dL (8.5-10.1); Chloride 113 mmol/L (98-107); EST Glomerular Filtration Rate 29 mL/min (>60); Est Glom Filt Rate - Afr Amer 35 mL/min (>60); Estimated Creatinine Clearance 33.78 ml/min; Glucose 118 mg/dL (74-106); Magnesium 1.3 mg/dL (1.6-2.6); Phosphorus 1.6 mg/dL (2.5-4.9); Potassium 3.3 mmol/L (3.5-5.1); Sodium Level 139 mmol/L (136-145)
[2024-02-18 08:36] VITALS: BP 147/74; PULSE 79; RESP 16; TEMP 36.4; O2SAT 100
[2024-02-18] MEDS: Insulin Lispro 100 UNIT/ML INSULN.PEN 18 UNIT SC ×3 (09:32→17:19)
[2024-02-18] MEDS: Ceftriaxone 1 GM/50 ML BAG IV (09:36)
[2024-02-18] MEDS: Potassium Chloride Oral Tablet 20 MEQ 40 MEQ PO (10:11)
[2024-02-18] MEDS: 0.9% Normal Saline (1000mL) 1,000 ML 100 ML IV ×2 (10:12→20:08)
[2024-02-18] MEDS: Loperamide 2 MG Capsule 4 MG PO (10:13)
[2024-02-18 11:05] VITALS: BP 120/60; PULSE 70; RESP 16; TEMP 36.6; O2SAT 98
[2024-02-18 11:21] LABS: Bedside Glucose 117 mg/dL (74-106)
[2024-02-18] MEDS: Insulin Glargine-YFGN 100 UNIT/ML Pen 15 UNIT SC (14:02)
--- NOTE | 2024-02-18 15:11 | PCM.PN.HOSP ---
Reason for Visit Reason for Visit: Diagnoses Acute kidney failure, unspecified (02/17/24) Subjective Subjective Patient was seen and examined today, she still states she is having diarrhea, she has had it for approximately 2 weeks. Patient's C. difficile PCR was negative, I added Imodium to her medications today. Patient urine culture exhibits no growth so far. Patient's creatinine was improved from yesterday. Objective Data Objective Data Vital Signs: Vital Signs Temp Pulse Resp BP Pulse Ox O2 Del Method 98 F 70 16 120/60 98 Room Air 02/18/24 11:05 02/18/24 11:05 02/18/24 11:05 02/18/24 11:05 02/18/24 11:05 02/18/24 14:05 Oxygen Delivery Method Room Air Weight: 97.522 kg Body Mass Index (BMI) 42.0 Intake & Output: Intake and Output for Last 24 Hours 02/16/24 02/17/24 02/18/24 23:59 23:59 23:59 Intake Total 4418.2 / 4618.2 2500.0 / 2500.0 Balance 4418.2 / 4618.2 2500.0 / 2500.0 Medical Nutrition Assessment Dietitian: Malnutrition Criteria Met Start: 02/18/24 11:11 Freq: Status: Active Protocol: Document 02/18/24 11:12 MIGUEL (Rec: 02/18/24 11:12 MIGUEL [id number]) Nutrition Malnutrition Evidence of Malnutrition Exists Yes Malnutrition (severe): Acute Illness/Injury Evidenced By Suboptimal Energy Intake ( Severe),Weight Loss (Severe) Clinical Problem Acute Disease or Injury Related Malnutrition Etiology related to n/v/abd pain and diarrhea x 2 wks captain cannery tender Signs/Symptoms as evidenced by 6.6% unintended wt loss and po intake <50% x 2 wks captain cannery tender Status Active Problem Recommendation Dietitian Recommendations/Changes Continue 1800 francisco Consisten CHO diet as ordered Continue 4 oz glucerna shake tid w/ medpass Available if diet education desired prior to d/c. Lab / Micro Data 02/18/24 05:45 02/18/24 05:45 Labs: Laboratory Results - last 24 hr 02/17/24 13:50: WBC 13.1 H, RBC 7.05 H, Hgb 18.4 H*, Hct 56.8 H, MCV 80.6 L, MCH 26.1 L, MCHC 32.4, RDW Std Deviation 42.0, RDW Coeff of [place] 16.2 H, Plt Count 414, MPV 11.2, Immature Gran % (Auto) 0.800, Neut % (Auto) 85.5 H, Lymph % (Auto) 8.7 L, [place] % (Auto) 4.3, Eos % (Auto) 0.2, Baso % (Auto) 0.5, Absolute Neuts (auto) 11.2 H, Absolute Lymphs (auto) 1.14, Nucleated RBC % 0, Diff Path Review Alexandra carter, Platelet Estimate SLT INC, Plt Morphology Comment LARGE, RBC Morphology N CHROM, Anisocytosis RARE, Microcytosis RARE, Sodium 135 L, Potassium 3.7, Chloride 104, Carbon Dioxide 18.0 L, Anion Gap 13, BUN 34 H, Creatinine 2.41 H, Est GFR (MDRD) Af Amer 27 L, Est GFR (MDRD) Non-Af 22 L, BUN/Creatinine Ratio 14.1, Glucose 282 H, Calcium 9.3, Total Bilirubin 0.50, Direct Bilirubin 0.17, AST 11 L, ALT 12 L, Alkaline Phosphatase 117, Total Protein 7.3, Albumin 3.4, Globulin 3.9, Lipase 89 H 02/17/24 15:57: Urine Color Yellow, Urine Clarity Clear, Urine pH 5.0, Ur Specific [place] 1.025, Urine Protein 30 H, Urine Glucose (UA) Normal, Urine Ketones 5 H, Urine Occult Blood 10 H, Urine Nitrite Positive H, Urine Bilirubin 3 H, Urine Urobilinogen 8 H, Ur Leukocyte Esterase 25 H, Urine RBC 0-5 SEEN, Urine WBC 0-5 SEEN, Ur Squamous Epith Cells 0-5 SEEN, Urine Bacteria 1+, Urine Mucus 0 SEEN 02/17/24 18:37: Lactic Acid 3.6 H* 02/17/24 21:02: POC Glucose 203 H 02/18/24 00:20: Lactic Acid 1.4 02/18/24 05:45: WBC 7.8, RBC 4.74, Hgb 12.5, Hct 38.2, MCV 80.6 L, MCH 26.4 L, MCHC 32.7, RDW Std Deviation 42.9, RDW Coeff of [place] 14.6, Plt Count 249, MPV 11.9, Immature Gran % (Auto) 0.500, Neut % (Auto) 65.2, Lymph % (Auto) 25.6, [place] % (Auto) 7.3, Eos % (Auto) 0.9, Baso % (Auto) 0.5, Absolute Neuts (auto) 5.1, Absolute Lymphs (auto) 1.99, Nucleated RBC % 0, Sodium 139, Potassium 3.3 L, Chloride 113 H, Carbon Dioxide 17.0 L, Anion Gap 9, BUN 32 H, Creatinine 1.90 H, Estim Creat Clear Calc 33.78, Est GFR (MDRD) Af Amer 35 L, Est GFR (MDRD) Non-Af 29 L, BUN/Creatinine Ratio 16.8, Glucose 118 H, Calcium 7.8 L, Phosphorus 1.6 L, Magnesium 1.3 L 02/18/24 06:46: POC Glucose 105 02/18/24 11:00: POC Glucose 117 H Micro: Microbiology 02/18/24 07:30 Stool Clostridioides difficile (PCR) - Final 02/17/24 15:57 Urine, Catheterized Urine Culture - Preliminary Culture exhibits no growth. Physical Exam Const alert, oriented x3 and no apparent distress Constitutional Narrative: Patient is morbidly obese General Appearance: cooperative, well kempt and well developed Orientation / Consciousness: awake, oriented to person, oriented to place and oriented to time HEENT normocephalic, head/scalp atraumatic and moist oral mucous membranes Eyes PERRL, EOMs intact bilaterally and conjunctivae normal Neck supple, no JVD, thyroid normal and no carotid bruits General: trachea midline Resp normal respiratory effort, no retractions, no use of accessory muscles and clear to auscultation bilaterally Auscultation: Negative for rales, rhonchi or wheezes Cardio regular rate, regular rhythm, S1 normal heart sound, S2 normal heart sound, no murmurs, no rub and no gallops GI normal to inspection, nondistended, normoactive bowel sounds, soft to palpation, non-tender and non-distended Extremity no clubbing, cyanosis or edema Skin no rashes or lesions noted General Skin Exam: no breakdown Neuro oriented x3, CN's II-XII intact bilaterally, no focal motor deficits and no sensory deficits noted Sensorium / Orientation: awake and alert Speech: speech normal Psych affect normal Assessment & Plan Assessment/Plan (1) Weakness: PLAN: Plan 1. Acute kidney injury on a backdrop of chronic kidney disease stage IIIb from type 2 diabetes-I have elected to decrease patient's IV fluids and recheck her labs tomorrow #2 acute cystitis-urine culture shows no growth at this time, she will remain on Rocephin for now #3 type 2 diabetes-patient's blood sugars will be monitored, sliding scale insulin will be administered as needed #4 diarrhea-etiology unclear, patient may need further workup as an outpatient #5 chronic depression-patient will remain on her current medications Total clinical time spent by myself addressing patient's medical issues, reviewing all of her data, and collaborating with patient's care team: 35 minutes Charges/Coding Visit Charges Inpatient E&M: 65071 Subs Hosp L2
[2024-02-18 16:13] LABS: Bedside Glucose 78 mg/dL (74-106)
[2024-02-18 16:24] VITALS: BP 115/56; PULSE 79; RESP 16; TEMP 36.6; O2SAT 94
[2024-02-18 21:41] VITALS: BP 121/59; PULSE 75; RESP 16; TEMP 36.6; O2SAT 96
[2024-02-18 22:57] LABS: Bedside Glucose 113 mg/dL (74-106)
[2024-02-18 22:57] LABS: Bedside Glucose 62 mg/dL (74-106)
[2024-02-18 22:57] LABS: Bedside Glucose 64 mg/dL (74-106)
[2024-02-19 04:00] VITALS: BP 117/56; PULSE 74; RESP 16; TEMP 36.9; O2SAT 96
[2024-02-19] MEDS: 0.9% Normal Saline (1000mL) 1,000 ML 100 ML IV (06:09)
[2024-02-19 06:27] LABS: Anion Gap 6 (5-15); BUN 20 mg/dL (7-18); BUN/Creat Ratio 13.6 RATIO (10-20); Calcium,Total 7.7 mg/dL (8.5-10.1); Chloride 121 mmol/L (98-107); Creatinine, Serum 1.47 mg/dL (0.55-1.02); EST Glomerular Filtration Rate 39 mL/min (>60); Est Glom Filt Rate - Afr Amer 47 mL/min (>60); Estimated Creatinine Clearance 43.67 ml/min; Glucose 88 mg/dL (74-106); Potassium 3.7 mmol/L (3.5-5.1); Sodium Level 144 mmol/L (136-145)
[2024-02-19 06:32] LABS: Bedside Glucose 88 mg/dL (74-106)
[2024-02-19] MEDS: Heparin Injection (Vial) 5,000 UNIT/ML VIAL 5000 UNIT SC (07:24)
[2024-02-19] MEDS: Paroxetine 20 MG Tablet 40 MG PO (07:25)
[2024-02-19] MEDS: Metoclopramide 5 MG TABLET PO (07:25)
[2024-02-19] MEDS: Pantoprazole Sodium 40 MG Tablet PO (07:25)
[2024-02-19] MEDS: Nystatin Powder 15gm Bottle 1 APPLIC TOPICAL (07:25)
[2024-02-19] MEDS: buPROPion (XL) 150 MG TABLET.XL PO (07:25)
[2024-02-19] MEDS: clonazePAM 0.5 MG Tablet PO (07:29)
[2024-02-19] MEDS: Glucerna Shake 120 ML LIQUID PO ×2 (07:29→11:01)
[2024-02-19] MEDS: Loperamide 2 MG Capsule 4 MG PO (07:31)
[2024-02-19 08:12] VITALS: BP 117/66; PULSE 74; RESP 16; TEMP 37.1; O2SAT 98
[2024-02-19] MEDS: Ceftriaxone 1 GM/50 ML BAG IV (08:36)
[2024-02-19] MEDS: Insulin Lispro 100 UNIT/ML INSULN.PEN 18 UNIT SC (08:37)
[2024-02-19 11:19] VITALS: BP 123/58; PULSE 73; RESP 16; TEMP 36.6; O2SAT 97
[2024-02-19 11:22] LABS: Bedside Glucose 62 mg/dL (74-106)
--- NOTE | 2024-02-19 11:48 | DCINST_ITS ---
Discharge Instructions Diet Discharge Diet: 1800 Calorie Control Diet Activity Discharge Activity: Return to Normal Activity Weight Bearing Status: Full weight bearing Follow Up Care Test Results: Test results from this visit will be discussed in further detail at your follow- up appointment, if applicable. Discharge Plan Admission Admit Date/Time: 02/17/24 17:06 Primary Reason for Your Visit: acute kidney injury Attending Provider: Christophe Francis Primary Care Provider: Roc Duque Consulting Providers: Lane Mitchell Instructions Additional Instructions / Restrictions: You may take Imodium 4 mg every 6 hours as needed for diarrhea It may be necessary for you to have a repeat colonoscopy with biopsies if your diarrhea does not resolve Discharge Orders/Prescriptions Prescriptions: New loperamide 2 mg Capsule 4 mg PO Q6H PRN PRN (Reason: Diarrhea/Loose Stools) Qty: 0 0RF metronidazole 500 mg tablet 500 mg PO TID Qty: 21 0RF Continued lisinopril 10 MG tablet 10 mg PO DAILY tizanidine 4 MG tablet 4 mg PO BID PRN (Reason: pain) Qty: 15 0RF amlodipine 2.5 mg tablet 2.5 mg PO DAILY paroxetine HCl [Paxil] 40 mg tablet 40 mg PO DAILY clonazepam [Klonopin] 0.5 mg tablet 0.5 mg PO BID trazodone 50 mg tablet 50 mg PO QHS PRN (Reason: insomnia) Trulicity 1.5 mg/0.5 mL pen injector 1.5 mg subcut QWEEK insulin glargine [Lantus U-100 Insulin] 100 unit/mL solution 15 unit subcut TID Humalog U-100 Insulin 100 unit/mL cartridge 18 unit subcut TID Rx Instructions: with meals bupropion HCl [Wellbutrin XL] 150 mg tablet extended release 24 hr 150 mg PO DAILY 30 Days Qty: 30 1RF Rx Instructions: 1 po every morning Discontinued ciprofloxacin HCl 500 MG tablet 500 mg PO DAILY metoclopramide HCl 5 mg tablet 5 mg PO 4X/DAY omeprazole 20 mg capsule,delayed release(DR/EC) 20 mg PO DAILY Referrals / Follow Up: Roc Duque MD [Primary Care Provider] - In 1 Week Disposition Disposition (needs filled in before D/C Order can be placed): Home, Self Care
--- NOTE | 2024-02-19 11:57 | DS.PCM_ITS ---
Providers Date of Admission: 02/17/24 Date of Discharge: 02/19/24 Primary Care Physician: Dr. Roc Duque MD Reason For Visit: ACUTE CYSTITIS, ACUTE KIDNEY INJURY Diagnosis Discharge Diagnosis (1) Weakness: Status: Acute Code(s): R53.1 - Weakness Plan 1. Acute kidney injury on a backdrop of chronic kidney disease stage IIIb from type 2 diabetes-I have elected to decrease patient's IV fluids and recheck her labs tomorrow #2 Bacteriuria #3 type 2 diabetes-patient's blood sugars will be monitored, sliding scale insulin will be administered as needed #4 diarrhea-etiology unclear, patient may need further workup as an outpatient #5 chronic depression-patient will remain on her current medications Sepsis was ruled out Total clinical time spent by myself addressing patient's medical issues, reviewing all of her data, and collaborating with patient's care team: 35 minutes Medications at Discharge Home Medications lisinopril 10 mg tablet 10 mg PO DAILY 07/17/15 tizanidine 4 mg tablet 4 mg PO BID PRN pain #15 tabs 10/11/19 clonazepam 0.5 mg tablet (Klonopin) 0.5 mg PO BID 11/22/23 dulaglutide 1.5 mg/0.5 mL subcutaneous pen injector (Trulicity) 1.5 mg subcut QWEEK 11/22/23 insulin glargine 100 unit/mL subcutaneous solution (Lantus U-100 Insulin) 15 unit subcut TID 11/22/23 insulin lispro 100 unit/mL subcutaneous cartridge (Humalog U-100 Insulin) 18 unit subcut TID 11/22/23 paroxetine HCl 40 mg tablet (Paxil) 40 mg PO DAILY 11/22/23 trazodone 50 mg tablet 50 mg PO QHS PRN insomnia 11/22/23 bupropion HCl 150 mg 24 hr tablet, extended release (Wellbutrin XL) 150 mg PO DAILY 30 days #30 tabs 01/03/24 amlodipine 2.5 mg tablet 2.5 mg PO DAILY 02/17/24 loperamide 2 mg capsule 4 mg (2 x 2 mg) PO Q6H PRN PRN Diarrhea/Loose Stools #0 caps 02/19/24 metronidazole 500 mg tablet 500 mg PO TID #21 tabs 02/19/24 Hospital Course Operations None Procedures None Summary of Care Provided Minutes Spent on Discharge: 31 Hospital Course: This 58-year-old white female was seen in the emergency room at [facility] with complaints of abdominal cramping, nausea, vomiting, and diarrhea x 2 weeks. Patient also complained of dizziness. Labs obtained showed an elevated white blood cell count at 13.1, hemoglobin was 18.4, creatinine was elevated at 2.41 and BUN was 34. Glucose was elevated at 282, urinalysis showed +1 bacteria and positive nitrites but 0-5 RBCs and 0-5 WBCs. Patient was admitted to [place] [address] for acute kidney injury and possible cystitis, she was placed on IV antibiotics and IV fluids and labs were monitored. Her creatinine normalized to her baseline. Urine culture grew out mixed organisms. Patient's stool was negative for C. difficile, ova and parasites are still pending, blood culture was negative. On 02/19/2024, patient was seen and examined: On examination she appeared in good health and spirits, she does not appear to be in any distress. Vital signs as documented. Skin warm and dry and without overt rashes. Neck without JVD, thyroid appears normal, trachea is midline, neck is supple. Lungs clear, normal air movement was noted. Heart exam notable for regular rhythm, normal sounds and absence of murmurs, rubs or gallops. Abdomen unremarkable and without evidence of organomegaly, masses, or abdominal aortic enlargement, bowel sounds are present in all 4 quadrants, no abdominal tenderness was noted. Extremities nonedematous, no cyanosis was noted, no clubbing was noted. Neuro: Cranial nerves II through XII are grossly intact, no focal motor deficits were noted, sensation to light touch and pinprick is intact, motor exam 5/5 throughout. Psych: Patient is alert and oriented x3, she does not appear anxious or depressed, she does not appear agitated. I elected not to send the patient home on any antibiotics, it was not clear that the patient had cystitis, more likely she had bacteriuria. Patient was placed on Flagyl for her diarrhea and she was urged to follow-up with a primary care physician for further testing if necessary such as a colonoscopy. 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 Weight / BMI Weight Weight: 112.037 kg Body Mass Index (BMI) 42.0 ABG / Lab / Microbiology Data 02/18/24 05:45 02/19/24 05:30 Laboratory: Laboratory Results - last 24 hr 02/18/24 15:54: POC Glucose 78 02/18/24 21:43: POC Glucose 64 L 02/18/24 22:09: POC Glucose 62 L 02/18/24 22:37: POC Glucose 113 H 02/19/24 05:30: Sodium 144, Potassium 3.7, Chloride 121 H, Carbon Dioxide 17.0 L , Anion Gap 6, BUN 20 H, Creatinine 1.47 H, Estim Creat Clear Calc 43.67, Est GFR (MDRD) Af Amer 47 L, Est GFR (MDRD) Non-Af 39 L, BUN/Creatinine Ratio 13.6, Glucose 88, Calcium 7.7 L 02/19/24 06:11: POC Glucose 88 02/19/24 10:58: POC Glucose 62 L Microbiology: Microbiology 02/17/24 15:57 Urine, Catheterized Urine Culture - Preliminary Mixed Gram Positive Organisms 02/18/24 07:30 Stool Clostridioides difficile (PCR) - Final D/C Instructions Discharge Diet: 1800 Calorie Control Diet Weight Bearing Status: Full weight bearing Meaningful Use Info Meaningful Use Meaningful Use Diagnoses (Choose all that apply): None applicable Ischemic Stroke Statin Dosing Therapy Reference: STATIN DOSE THERAPY REFERENCE: * Patients > 75 years receive moderate or high dose statin therapy. * Patients 75 years or YOUNGER should receive HIGH intensity statin dose unless contraindicated. You will be required to document reason for non-treatment if statin daily dose does not meet guidelines. HIGH DOSE STATIN THERAPY DAILY Atorvastatin > than or = to 40 mg Rosuvastatin > than or = to 20 mg Amlodipine + Atorvastatin > than or = to 2.5/40 mg Ezetimibe + Simvastatin 10/80 mg Simvastatin 80mg Discharge Plan Admission Admit Date/Time: 02/17/24 17:06 Primary Reason for Your Visit: acute kidney injury Attending Provider: Christophe Francis Primary Care Provider: Roc Duque Consulting Providers: Lane Mitchell Instructions Additional Instructions / Restrictions: You may take Imodium 4 mg every 6 hours as needed for diarrhea It may be necessary for you to have a repeat colonoscopy with biopsies if your diarrhea does not resolve Discharge Orders/Prescriptions Prescriptions: New loperamide 2 mg Capsule 4 mg PO Q6H PRN PRN (Reason: Diarrhea/Loose Stools) Qty: 0 0RF metronidazole 500 mg tablet 500 mg PO TID Qty: 21 0RF Continued lisinopril 10 MG tablet 10 mg PO DAILY tizanidine 4 MG tablet 4 mg PO BID PRN (Reason: pain) Qty: 15 0RF amlodipine 2.5 mg tablet 2.5 mg PO DAILY paroxetine HCl [Paxil] 40 mg tablet 40 mg PO DAILY clonazepam [Klonopin] 0.5 mg tablet 0.5 mg PO BID trazodone 50 mg tablet 50 mg PO QHS PRN (Reason: insomnia) Trulicity 1.5 mg/0.5 mL pen injector 1.5 mg subcut QWEEK insulin glargine [Lantus U-100 Insulin] 100 unit/mL solution 15 unit subcut TID Humalog U-100 Insulin 100 unit/mL cartridge 18 unit subcut TID Rx Instructions: with meals bupropion HCl [Wellbutrin XL] 150 mg tablet extended release 24 hr 150 mg PO DAILY 30 Days Qty: 30 1RF Rx Instructions: 1 po every morning Discontinued ciprofloxacin HCl 500 MG tablet 500 mg PO DAILY metoclopramide HCl 5 mg tablet 5 mg PO 4X/DAY omeprazole 20 mg capsule,delayed release(DR/EC) 20 mg PO DAILY Referrals / Follow Up: Roc Duque MD [Primary Care Provider] - In 1 Week Disposition Disposition (needs filled in before D/C Order can be placed): Home, Self Care Charges/Coding Visit Charges Inpatient E&M: 79750 Disch Hosp >30min
--- NOTE | 2024-02-19 12:30 | CASEMGMT ---
CARY AGUILAR Assessment: Face to Face with pt for initial transition planning/care coordination assessment. CARY AGUILAR introduced self and role at [facility], pt voices understanding and consents to assessment. Pt is A&O x4 and answers all questions appropriately at this time. Pt lying in bed in no distress. Pt states her friend is picking her up after lunch to go home. Care providers, pharmacy, and demographics verified/updated. Admitting Dx: acute cystitis, ADA PCP:[facility] Specialists:ángela Reyna Preferred Pharmacy: [facility] Insurance: [employer] Prescription Benefit: yes LNOK: Sorin Santoyo, brother Living Arrangements: Pt lives with brother in a single story home. Pt reports she is I in ADL's and IADL's. Pt denies concerns at home. Transportation: Pt drives self and denies concerns with transportation. DME:[employer] but does not use [facility] HHC/SNF: Denies hx of HHC, has been in SNF in [place] in the past. Pt states no concerns with going home at time of dc. Pt states she is up walking to the bathroom by herself. Pt denies any homegoing needs. Pt states no further concerns/needs. CM to follow. Advised pt to ask CM if any further question/concerns/needs arise, voices understanding. Pt Goal: Home Plan: Home Judy TOWNSEND CM
--- NOTE | 2024-02-19 13:57 | PHA.DC.MR.R ---
Pharmacy [place] Med Reconciliation Pharmacy Service has performed discharge medication reconciliation for this patient. Attempted to application counselor via telephone due to precautions, patient did not answer. The patient's discharge medication list was reviewed for discrepancies and discrepancies were resolved. Medications at Discharge Home Medications lisinopril 10 mg tablet 10 mg PO DAILY 07/17/15 tizanidine 4 mg tablet 4 mg PO BID PRN pain #15 tabs 10/11/19 clonazepam 0.5 mg tablet (Klonopin) 0.5 mg PO BID 11/22/23 dulaglutide 1.5 mg/0.5 mL subcutaneous pen injector (Trulicity) 1.5 mg subcut QWEEK 11/22/23 insulin glargine 100 unit/mL subcutaneous solution (Lantus U-100 Insulin) 15 unit subcut TID 11/22/23 insulin lispro 100 unit/mL subcutaneous cartridge (Humalog U-100 Insulin) 18 unit subcut TID 11/22/23 paroxetine HCl 40 mg tablet (Paxil) 40 mg PO DAILY 11/22/23 trazodone 50 mg tablet 50 mg PO QHS PRN insomnia 11/22/23 bupropion HCl 150 mg 24 hr tablet, extended release (Wellbutrin XL) 150 mg PO DAILY 30 days #30 tabs 01/03/24 amlodipine 2.5 mg tablet 2.5 mg PO DAILY 02/17/24 loperamide 2 mg capsule 4 mg (2 x 2 mg) PO Q6H PRN PRN Diarrhea/Loose Stools #0 caps 02/19/24 metronidazole 500 mg tablet 500 mg PO TID #21 tabs 02/19/24
[2024-02-19 14:59] LABS: Pathologist Review Reviewed
== END 2024-02-19 13:36 | disposition home or self-care (01) | DRG 463 ==
LOC: ED 16:52 → MS3 17:38
PROVIDERS: Admitting Provider Internal Medicine; Emergency Provider Emergency Medicine; PCP Family Medicine; Visit Provider Internal Medicine
DX: R82.71 Bacteriuria (principal); E43 Unspecified severe protein-calorie malnutrition; N17.9 Acute kidney failure, unspecified; E11.22 Type 2 diabetes mellitus with diabetic chronic kidney disease; E11.65 Type 2 diabetes mellitus with hyperglycemia; D75.1 Secondary polycythemia; E86.0 Dehydration; E66.01 Morbid (severe) obesity due to excess calories; N18.32 Chronic kidney disease, stage 3b; Z68.41 Body mass index [BMI] 40.0-44.9, adult; Z79.4 Long term (current) use of insulin; I12.9 Hypertensive chronic kidney disease with stage 1 through stage 4 chronic kidney disease, or unspecified chronic kidney disease; F32.A Depression, unspecified; R19.7 Diarrhea, unspecified; K21.9 Gastro-esophageal reflux disease without esophagitis; N30.00 Acute cystitis without hematuria; F41.1 Generalized anxiety disorder; Z79.85 Long-term (current) use of injectable non-insulin antidiabetic drugs; Z79.899 Other long term (current) drug therapy
CPT/HCPCS: 36415; 80048; 80076; 81001; 82962; 83605; 83690; 83735; 84100; 85025; 87040; 87077; 87086; 87088; 87177; 87186; 87209; 87493; 93005; 97802; 99285; J7030; P9612; A4216

== ENCOUNTER 2024-02-26 15:12 | Emergency (ER) | payer MEDICAID, SELFPAY ==
[2024-02-26 15:13] VITALS: BP 127/73; PULSE 64; RESP 20; TEMP 36.6; O2SAT 99
--- NOTE | 2024-02-26 15:23 | RAD_ITS ---
STUDY: X-RAY CHEST REASON FOR EXAM: Female, 58 years old. WEAKNESS TECHNIQUE: AP portable COMPARISON: September 24 2015 FINDINGS: The lungs are clear and expanded. There is no demonstrated pleural abnormality. Normal size heart. Normal mediastinum and natalia. Normal visualized pulmonary arteries. Mildly calcified aortic arch and descending thoracic aorta. Dorsal spine demonstrates mild spondylosis. Normal visualized ribs, clavicles, and shoulders. There is no demonstrated abnormality of the visualized soft tissue structures of the upper abdomen. RAD/Chest 1 View (Portable) IMPRESSION: No acute cardiopulmonary pathology. Electronically Signed: Tiburcio Patel MD at 16:26 EDT ,
--- NOTE | 2024-02-26 15:24 | EKG12_ITS ---
Test Reason : Blood Pressure : / mmHG Vent. Rate : 065 BPM Atrial Rate : 065 BPM P-R Int : 126 ms QRS Dur : 060 ms QT Int : 470 ms P-R-T Axes : 035 036 197 degrees QTc Int : 488 ms Normal sinus rhythm Low voltage QRS Cannot rule out Anterior infarct (cited on or before 17-MAY-2018) ST & T wave abnormality, consider inferolateral ischemia Abnormal ECG Confirmed by EDNA PADILLA, REKHA ([id number]), news videotape editor EDOUARD LAZCANO ([id number]) on 02/27/2024 8:36:22 AM Referred By: Confirmed By:REKHA BISHOP MD
--- NOTE | 2024-02-26 15:25 | EDS_ITS ---
HPI HPI - GI History of Present Illness Chief Complaint: Diarrhea Informant: patient Nausea/Vomiting/Emesis GI Symptom: Positive for Nausea Severity: Mild Diarrhea/Melena/Hematochezia GI Symptom: Positive for Diarrhea Onset: Weeks Stool Quality: Positive for Loose and Watery Severity: Moderate Associated Symptoms Associated Symptoms: Negative for Dysuria, Frequency, Hematuria or Urgency Narrative Narrative: 58-year-old female history of diabetes and hypertension. Recent hospitalization discharged about a week ago for the same thing with diarrhea that she has had now for about 3 weeks 8-10 episodes a day. Sometimes loose sometimes watery. No blood. She was hospitalized was treated for UTI. Has been off the antibiotics now about a week. Had a negative C. difficile culture while hos pitalized. Prior similar symptoms: Yes Recent Illness/Hospitalization: Yes [facility] Medical History Anxiety Depression Diabetes Hypertension Generalized anxiety disorder Panic disorder Major depressive disorder, recurrent severe without psychotic features Home Medications ?Medication ?Instructions ?Recorded ?Last Taken ?Type lisinopril 10 mg tablet 10 mg PO DAILY 07/17/15 Unknown History tizanidine 4 mg tablet 4 mg PO BID PRN pain #15 tabs 10/11/19 Unknown Rx clonazepam 0.5 mg tablet (Klonopin) 0.5 mg PO BID 11/22/23 Unknown History dulaglutide 1.5 mg/0.5 mL 1.5 mg subcut QWEEK 11/22/23 Unknown History subcutaneous pen injector (Trulicity) insulin glargine 100 unit/mL 15 unit subcut TID 11/22/23 Unknown History subcutaneous solution (Lantus U-100 Insulin) insulin lispro 100 unit/mL 18 unit subcut TID 11/22/23 Unknown History subcutaneous cartridge (Humalog U-100 Insulin) paroxetine HCl 40 mg tablet (Paxil) 40 mg PO DAILY 11/22/23 Unknown History trazodone 50 mg tablet 50 mg PO QHS PRN insomnia 11/22/23 Unknown History bupropion HCl 150 mg 24 hr tablet, 150 mg PO DAILY 30 days #30 tabs 01/03/24 Unknown Rx extended release (Wellbutrin XL) amlodipine 2.5 mg tablet 2.5 mg PO DAILY 02/17/24 Unknown History loperamide 2 mg capsule 4 mg (2 x 2 mg) PO Q6H PRN PRN 02/19/24 Unknown Rx Diarrhea/Loose Stools #0 caps metronidazole 500 mg tablet 500 mg PO TID #21 tabs 02/19/24 Unknown Rx Allergy/AdvReac Type Severity Reaction Status Date / Time Penicillins Allergy Rash Verified 02/17/24 14:19 erythromycin base AdvReac Nausea Verified 02/17/24 14:19 metformin AdvReac Diarrhea Verified 02/17/24 14:19 Surgical History History of cholecystectomy Social History Smoking Status: Never smoker ROS ROS ED ROS Narrative Nausea. Diarrhea. Review of Systems ROS Unobtainable: Denies due to encephalopathy Constitutional Constitutional ED: Denies chills or fever(s) ENT ENT ED: Denies ear pain Cardiovascular Cardiovascular: Denies chest pain Respiratory/Chest Respiratory/Chest: Denies cough or dyspnea Gastrointestinal Gastrointestinal: Reports diarrhea and nausea; Denies abdominal pain, constipation, melena or vomiting Genitourinary Genitourinary ED: Denies dysuria or hematuria Musculoskeletal Musculoskeletal: Denies arthralgias or back pain Integumentary Denies abscess or Abrasions Neurologic Neurologic: Denies headache(s) Psychiatric Psychiatric: Denies anxiety Endocrine Endocrinology: Denies polydipsia or polyphagia Hematologic/Lymphatic Hematologic/Lymphatic: Denies easy bleeding or easy bruising Allergic/Immunologic Allergic/Immunologic ED: Denies mouth swelling or tongue swelling EXAM Physical Exam Narrative Exam Narrative: 58-year-old female no acute distress vital signs stable. Pulse ox 9 9% on room air no signs hypoxia. Afebrile. Clinically she does look dehydrated. H EENT exam dry mucous membranes. Pupils round react to light. Neck nontender. No lymphadenopathy. Lungs clear to auscultation bilateral. Heart regular rhythm rate about 65 no murmur. Chest wall ribs nontender. Abdomen soft, nontender, nondistended, normal bowel sounds without peritoneal signs. Moving all 4 extremities. Nontender no edema. Normal watch inspector final movement strength. Normal dorsi plantarflexion. She is awake alert. Answer questions following commands. Back nontender. Const Vital Signs: 02/26/24 15:13 02/26/24 15:21 02/26/24 17:13 Temperature 97.9 F Temperature Source Oral Pulse Rate 64 60 Respiratory Rate 20 H 19 H Blood Pressure 127/73 H 138/51 H Blood Pressure Mean 91 80 Pulse Ox 99 98 Oxygen Delivery Method Room Air Room Air Room Air 02/26/24 19:00 Temperature Temperature Source Pulse Rate 64 Respiratory Rate 14 Blood Pressure 136/55 H Blood Pressure Mean 82 Pulse Ox 99 Oxygen Delivery Method Room Air Positive well nourished and well developed; Negative for cachectic, contractures or unkempt General Appearance ED: well developed and NAD; Negative for unkempt, cachectic, contractures or pallor Nutritional Appearance: Negative for cachectic HEENT Reports dry mucous membranes; Denies moist mucous membranes normocephalic and atraumatic; Negative for trauma or tenderness Mouth ED: Yes dry mucous membranes Mouth: dry mucous membranes Eyes PERRL and EOMs intact bilaterally General Eye ED: Negative for pale conjunctiva or scleral icterus Neck no lymphadenopathy, supple and no JVD General: Negative for tenderness Carotids: Negative for other Lymph Lymphatic: Negative for other Resp normal respiratory effort and clear to auscultation bilaterally Effort and Inspection: Negative for respiratory distress Auscultation: Negative for rales, rhonchi or wheezes Cardio regular rate, regular rhythm, S1 normal heart sound, S2 normal heart sound and no murmurs Rate: Negative for bradycardia or tachycardic Rhythm: Negative for abnormal rhythm or other GI non-tender, non-distended and no masses Inspection: Negative for abdominal distention Auscultation: normoactive bowel sounds Palpation: soft; Negative for tender, guarding or rebound tenderness present Back/Spine no CVA tenderness General Back: Negative for CVA tenderness Cervical Spine: Negative for cervical spine tenderness Thoracic Spine / Upper Back: Negative for thoracic spinal tenderness Lumbar Spine / Lower Back: Negative for lumbar spinal tenderness Coccyx: Negative for other Extremity full ROM General Extremety ED: Negative for edema, tenderness or other findings General Extremity: Negative for edema or other findings Neuro CN's II-XII intact bilaterally and moves all extremities Sensorium / Orientation: alert, oriented to person, oriented to place and oriented to time; Negative for orientation impaired, confused or lethargic Motor Exam: strength 5/5 throughout Psych mental status grossly normal and thought process normal Appearance: Negative for unkempt Attitude: No agitated Mood & Affect: Negative for depressed, anxious or tearful Skin no wounds General Skin Exam: Negative for jaundice or pallor Lesions: no lesions Rashes: no rashes Trauma: Negative for abrasion Nails: Negative for discolored MDM MDM MDM Narrative Medical decision making narrative: 58-year-old female history diabetes and hypertension. Was hospitalized and discharged about a week ago for diarrhea, UTI and dehydration. Similar symptoms now. Screening labs and UA will be obtained. Treated with IV fluids because clinically she looks dehydrated. And Zofran for nausea. Repeat exam however patient's test results are showing nonspecific admitted hospital for. She is complaining of lower abdominal pain and said that the actual reason she came in even though she really did not mention it on her initial presentation. She will be given Bentyl for cramping. Morphine for the pain.. And I will get a CAT scan of her abdomen and pelvis with IV contrast. Repeat exam at 8:35 PM patient doing well. Abdomen nontender. Nondistended. I went over all of her labs and imaging results with her. Patient is comfortable being discharged home. Outpatient follow-up with her primary care physician at the [facility]. She has Imodium at home for the diarrhea. Fluids and rest. History & Record Review Discussion w/independent historian: Patient Additional record(s) reviewed:: Prior inpatient record, Prior outpatient record, Prior ED visit and Prior labs Lab Data Attestation: I reviewed the patient's lab results. Lab results narrative: CBC white count 8. H&H 14 and 44. Platelets 267. Electrolytes show potassium 3.3. Gap 13. CO2 of 18. BUN of 8 and creatinine 1.36. Glucose 172. UA is a contaminated specimen with 25-50 white cells however 25-50 epithelial cells 3+ bacteria. No nitrates. C. difficile is negative. CAT scan was unremarkable except for right ovarian cyst and enteritis. Chest x-ray normal. Labs: Laboratory Results - last 24 hr 02/26/24 02/26/24 15:29 16:44 WBC 8.1 RBC 5.61 H Hgb 14.6 Hct 44.1 MCV 78.6 L MCH 26.0 L MCHC 33.1 RDW Std Deviation 41.9 RDW Coeff of Kelby 16.2 H Plt Count 267 MPV 10.7 Immature Gran % (Auto) 0.500 Neut % (Auto) 73.6 H Lymph % (Auto) 18.8 L [place] % (Auto) 5.0 Eos % (Auto) 1.6 Baso % (Auto) 0.5 Absolute Neuts (auto) 6.0 Absolute Lymphs (auto) 1.52 Nucleated RBC % 0 Sodium 137 Potassium 3.3 L Chloride 106 Carbon Dioxide 18.0 L Anion Gap 13 BUN 8 Creatinine 1.36 H Est GFR (MDRD) Af Amer 51 L Est GFR (MDRD) Non-Af 42 L BUN/Creatinine Ratio 5.9 L Glucose 172 H Calcium 8.4 L Urine Color Heidi Urine Clarity Sl. Cloudy Urine pH 5.0 Ur Specific [place] 1.015 Urine Protein 30 H Urine Glucose (UA) Normal Urine Ketones 50 H Urine Occult Blood 10 H Urine Nitrite Negative Urine Bilirubin 1 H Urine Urobilinogen Normal Ur Leukocyte Esterase 500 H Urine RBC 0-5 SEEN Urine WBC 25-50 SEEN Ur Squamous Epith Cells 25-50 SEEN Ur Renal Epithelial Cell 5-10 SEEN Urine Bacteria 3+ Urine Mucus 0 SEEN Radiography Chest X-Ray - ED: 1 View, Read by ED Physician, Read by Radiologist, Normal, Heart, Lungs, Mediastinum, Bony Structures, No Acute Disease and Chronic Changes Diagnostic Testing: Clinical Impression(s) from Imaging Studies Chest X-Ray 02/26/24 15:23 IMPRESSION: No acute cardiopulmonary pathology. Electronically Signed: Tiburcio Patel MD at 16:26 EDT Reading Location ID and State: [facility] / MD Tel [phone], Service support , Abdomen/Pelvis CT 02/26/24 19:25 IMPRESSION: Findings which may be consistent with nonspecific enteritis Minor diverticular changes of the descending colon without evidence for acute diverticulitis Incidental finding of right adnexal cystic mass most likely ovarian. Electronically Signed: Tiburcio Patel MD at 20:11 EDT , Chest x-ray, portable, single view interpreted by myself and radiologist shows no acute abnormality. Normal cardiac silhouette. Normal lung chacon. No pneumonia. CT abdomen pelvis read by the radiologist shows nonspecific enteritis. Diverticular disease but no diverticulitis. Possibly a right ovarian cyst. Rhythm Strip Rhythm Strip: Sinus Rhythm Rate: 65 Ectopy: None EKG Initial EKG: Attestation: I personally reviewed and interpreted this EKG as follows: Interpretation: Sinus Rhythm and No Acute Injury Pattern Comments: Normal sinus rhythm rate is 65 no acute signs of MA or ischemia. Low voltage. Discharge Plan Triage Chief Complaint: Diarrhea ED Provider: Richard Estrada Dx/Rx/DC Orders Clinical Impression: Diarrhea, Dehydration, History of diabetes mellitus Instructions: Dehydration, ED Diarrhea, Unknown Cause Prescriptions: No Action lisinopril 10 MG tablet 10 mg PO DAILY tizanidine 4 MG tablet 4 mg PO BID PRN (Reason: pain) Qty: 15 0RF amlodipine 2.5 mg tablet 2.5 mg PO DAILY loperamide 2 mg Capsule 4 mg PO Q6H PRN PRN (Reason: Diarrhea/Loose Stools) Qty: 0 0RF metronidazole 500 mg tablet 500 mg PO TID Qty: 21 0RF paroxetine HCl [Paxil] 40 mg tablet 40 mg PO DAILY clonazepam [Klonopin] 0.5 mg tablet 0.5 mg PO BID trazodone 50 mg tablet 50 mg PO QHS PRN (Reason: insomnia) Trulicity 1.5 mg/0.5 mL pen injector 1.5 mg subcut QWEEK insulin glargine [Lantus U-100 Insulin] 100 unit/mL solution 15 unit subcut TID Humalog U-100 Insulin 100 unit/mL cartridge 18 unit subcut TID Rx Instructions: with meals bupropion HCl [Wellbutrin XL] 150 mg tablet extended release 24 hr 150 mg PO DAILY 30 Days Qty: 30 1RF Rx Instructions: 1 po every morning Primary Care Provider: Roc Duque Referrals: Roc Duque MD [Primary Care Provider] - As soon as possible Activity Restrictions/Additional Instructions: Plenty of fluids and rest. Water, Gatorade and 7-Up. Imodium for the diarrhea. Call and follow-up with your primary care physician this week to ensure you are improving. Your labs today were unremarkable. The CAT scan showed a possible right ovarian cyst other than that just changes with the diarrhea. Your chest x-ray was unremarkable as was your EKG. Print Language: Portuguese Disposition Disposition: Home, Self Care
[2024-02-26 15:37] LABS: Absolute Lymphocyte Count 1.52 X10^3/uL (0.83-4.51); Basophil# 0.04 X10^3/uL; Basophil% 0.5 % (0-1); Eosinophil# 0.13 X10^3/uL; Eosinophils% 1.6 % (0-5); Hematocrit 44.1 % (37-47); Hemoglobin 14.6 g/dL (12.0-15.0); Lymphocyte # 1.52 X10^3/ul (0.83-4.51); Lymphocyte % 18.8 % (19-41); Mean Corp Hgb Conc 33.1 g/dL (32-36); Mean Corpuscular Volume 78.6 fL (81-99); Mean Platelet Vol. 10.7 fl (6.2-12.0); NRBC Flagged by Analyzer 0 % (0-5); Neutrophil # 5.95 X10^3/uL (2.7-7.7); Neutrophil % 73.6 % (47-70); Platelet Count 267 K/mm3 (150-450); RBC Distribution Width CV 16.2 % (11.6-14.6); RBC Distribution Width SD 41.9 fl (35.1-43.9); Red Blood Count 5.61 M/mm3 (4.2-5.4); White Blood Count 8.1 K/mm3 (4.4-11.0)
[2024-02-26] MEDS: Ondansetron 4 MG/2 ML Vial IV ×2 (15:54→19:36)
[2024-02-26] MEDS: 0.9% Normal Saline (1000mL) 1,000 ML 1000 ML IV (15:54)
[2024-02-26 15:55] LABS: Anion Gap 13 (5-15); BUN 8 mg/dL (7-18); BUN/Creat Ratio 5.9 RATIO (10-20); Calcium,Total 8.4 mg/dL (8.5-10.1); Chloride 106 mmol/L (98-107); Creatinine, Serum 1.36 mg/dL (0.55-1.02); EST Glomerular Filtration Rate 42 mL/min (>60); Est Glom Filt Rate - Afr Amer 51 mL/min (>60); Glucose 172 mg/dL (74-106); Potassium 3.3 mmol/L (3.5-5.1); Sodium Level 137 mmol/L (136-145)
[2024-02-26 16:51] LABS: Mucous, Urine 0 SEEN /hpf (<or=2+)
[2024-02-26 17:13] VITALS: BP 138/51; PULSE 60; RESP 19; O2SAT 98
[2024-02-26 17:23] LABS: Color, Urine Amber (Yellow); Glucose, Dipstick Normal (Normal); Ketone-Dipstick 50 mg/dl (Negative); Leukocyte Esterase-Dipstick 500 /ul (Negative); Nitrite-Dipstick Negative (Negative); Occult Blood-Urine 10 /ul (Negative); Protein-Dipstick 30 mg/dl (Negative); Specific Gravity, Urine 1.015 (1.002-1.030); Urine Clarity Sl. Cloudy (Clear); Urine Urobilinogen Normal (Normal)
[2024-02-26 17:24] LABS: Urine Bilirubin Dipstick 1 mg/dL (Negative)
[2024-02-26 18:09] LABS: Renal Epithelial Cells 5-10 SEEN /hpf (0-5); Squamous Epithelial Cells - UA 25-50 SEEN /hpf (5-10); White Blood Cells 25-50 SEEN /hpf (0-5)
[2024-02-26 18:10] LABS: Bacteria 3+ /hpf (None Seen); Red Blood Cells-Urine 0-5 SEEN /hpf (0-5)
[2024-02-26 19:00] VITALS: BP 136/55; PULSE 64; RESP 14; O2SAT 99
--- NOTE | 2024-02-26 19:25 | CT_ITS ---
STUDY: CT ABDOMEN AND PELVIS WITH CONTRAST REASON FOR EXAM: Female, 58 years old. lower abd pain RADIATION DOSAGE (If Supplied By Facility): CTDIvol = ( 37.50 ) mGy, DLP = ( 1295.76 ) mGycm TECHNIQUE: Transaxial images were obtained from the dome of the diaphragm to the symphysis pubis without oral contrast. IV 100mL Isovue-300 was administered. Sagittal and coronal images were reconstructed. Individualized dose optimization techniques were used for this CT. COMPARISON: None. FINDINGS: The visualized lung bases are unremarkable. Heart size is normal. There is minor coronary artery calcification. Normal liver. Gallbladder has been removed surgically. Tiny granulomatous calcifications in normal size spleen. Normal pancreas. Normal bilateral adrenal glands. No evidence for renal obstruction or ureteral calculus. There is a tiny cortical cyst in the right kidney which will not require additional imaging Normal visualized stomach. There is mild concentric thickening of the wong of multiple loops of small bowel in the mid to lower abdomen with stranding in the fat consistent with nonspecific enteritis. Minor diverticular changes of the descending colon without evidence for acute diverticulitis. No evidence for acute appendicitis Minor atherosclerotic change of the aorta without evidence for aneurysm. Normal inferior vena cava. Normal retroperitoneum. Incompletely distended thick walled bladder likely of no significance. There is a right adnexal cystic mass measuring approximately 7.8 x 6.4 x 6 cm is likely ovarian Normal abdominal wall. Lumbar spine demonstrates degenerative change CT/Abdomen/Pelvis W IV Cont ONLY IMPRESSION: Findings which may be consistent with nonspecific enteritis Minor diverticular changes of the descending colon without evidence for acute diverticulitis Incidental finding of right adnexal cystic mass most likely ovarian. Electronically Signed: Tiburcio Patel MD at 20:11 EDT ,
[2024-02-26] MEDS: Dicyclomine 10 MG Capsule 20 MG PO (19:35)
[2024-02-26] MEDS: morphine 8 MG/ML Syringe 6 MG IV (19:35)
[2024-02-26] MEDS: 0.9% Normal Saline (1000mL) 1,000 ML 999 ML IV (19:36)
[2024-02-26 20:40] VITALS: BP 150/96; PULSE 88; RESP 17; TEMP 37.2; O2SAT 97
== END 2024-02-26 20:43 | disposition home or self-care (01) ==
PROVIDERS: Emergency Provider Emergency Medicine; PCP Family Medicine; Visit Provider Emergency Medicine
DX: E86.0 Dehydration (principal); E11.9 Type 2 diabetes mellitus without complications; Z79.4 Long term (current) use of insulin; I10 Essential (primary) hypertension; R19.7 Diarrhea, unspecified; R11.2 Nausea with vomiting, unspecified; Z79.85 Long-term (current) use of injectable non-insulin antidiabetic drugs; Z79.899 Other long term (current) drug therapy
CPT/HCPCS: 71045; 74177; 80048; 81001; 85025; 87493; 93005; 96361; 96374; 96375; 96376; 99284; J7030; Q9967; A4216; J2405